=== PATIENT | female | born 1960 | race Caucasian/White ===

== ENCOUNTER 2017-01-26 08:26 | Observation (INO) | payer BC ==
--- NOTE | 2017-01-26 08:43 | DR.GENAD ---
HPI - HPI Comment HPI Comment: INCRESING SOB SINCE THURSDAY ESPECIALLY ON EXERTION. THIS IS ASSOCIATED WITH CHEST TIGHTNESS. STATED HAVING CHEST PAIN YESTERDAY. SUBSTERNAL PRESSURE, NON RADIATING. RECENTLY HAD ECHO AND NUCLEAR STRESS TEST DONE. SHE HAS HYPERTENSION. - Complaint/Symptoms Chief Complaint Doctors Comments: CHEST PAIN, TACHYCARDIA, SOB - Nurses notes reviewed Nurses Notes Review: Yes - Source History Provided: Parent - Mode of Arrival Mode of Arrival: Ambulatory - Timing Came on: Suddenly - Duration Duration: Constant Duration: Days - Severity Severity: Moderate PMH - PMH Past Medical History: Hypertension, Hypothyroidism, Seizures Past Surgical History: Yes Surgical History: Hysterectomy, Tonsillectomy - Family History Family Medical History: Hypertension - Social History Do you use any recreational Drugs:: No ROS - Review of Systems Constitutional: Weakness, Fatigue. negative: Chills, Fever Eyes: No Symptoms Reported. negative: Eye Pain, Discharge ENTM: Nose Congestion. negative: Ear Pain, Nose Discharge, Throat Pain Respiratoy: Non-Productive Cough, Short of Breath. negative: Wheezing, Hemoptysis Cardiovascular: Chest Pain (TIGHTNESS), Palpitations, Syncope (NEAR SYNCOPAL FEELING.) Gastrointestinal/Abdominal: No Symptoms Reported. negative: Abdominal Pain, Constipation, Diarrhea, Nausea, Vomiting Genitourinary: No Symptoms Reported. negative: Dysuria, Frequency, Hematuria Neurological: Weakness, Dizziness. negative: Headache Musculoskeletal: Muscle Pain Integumentary: No Symptoms Reported Hematologic/Lymphatic: No Symptoms Reported Endocrine: No Symptoms Reported All Other Systems: Reviewed and Negative PE - Vital Signs Vitals: Temperature 98.9 F Pulse Rate [Right Brachial] 79 Pulse Rate 94 Respiratory Rate 18 Blood Pressure [Right Arm] 149/89 Blood Pressure 162/94 O2 Sat by Pulse Oximetry 98 - General Limitations: No Limitations General Appearance: Alert - Head Head Exam: Normal Inspection - Eyes Eye exam: Normal Appearance - ENT ENT Exam: Normal External Ear Exam External Ear Exam: Normal External Inspection TM/Canal Exam: Bilateral Normal Nose Exam: Normal Nose Exam Mouth Exam: Normal Inspection Throat Exam: Normal Inspection - Neck Neck Exam: Normal Inspection - Chest Chest Inspection: Symmetric Chest Wall Rise - Respiratory Respiratory Exam: Normal Lung Sounds Bilat Respiratory Exam: Bilateral Rhonchi, Lower Rhonchi - Cardiovascular Cardiovascular Exam: Regular Rate, Normal Rhythm, Normal Heart Sounds - Abdominal Exam Abdominal Exam: Normal Bowel Sounds, Soft. negative: Tenderness - Extremities Extremities Exam: Normal Inspection. negative: Edema - Back Back Exam: Normal Inspection - Neurologic Neurological Exam: Alert, Oriented X3, CN II-XII Intact, Normal Gait, Reflexes Normal. negative: Motor Sensory Deficit - Psychiatric Psychiatric Exam: Anxious - Skin Skin Exam: Normal Color [facility] - Additional Information Additional Information Obtained From: Family - Differential Diagnosis Differential Diagnosis: CHEST PAIN, SOB, Course - Treatment Treatment: SEE ORDERS - Education/Counseling Education/Counseling: Patient, Family, Education Educated On: Diagnosis ROR - Labs Reviewed Laboratory Results Reviewed?: Yes Result Diagrams: 01/27/17 03:51 01/27/17 03:51 Laboratory: WBC 13.7 X10^3/uL (3.6-10.0) H 01/26/17 08:55 RBC 5.29 X10^6/uL (3.5-5.4) 01/26/17 08:55 Hgb 14.7 g/dL (12.0-16.0) 01/26/17 08:55 Hct 44.4 % (36.0-47.0) 01/26/17 08:55 MCV 83.9 fL (80.0-100.0) 01/26/17 08:55 MCH 27.7 pg (27.0-34.0) 01/26/17 08:55 MCHC 33.1 g/dL (33.0-35.0) 01/26/17 08:55 RDW 13.2 % (11.6-16.5) 01/26/17 08:55 Plt Count 260 X10^3/uL (150.0-450.0) 01/26/17 08:55 Plt Count Comment Adequate (ADEQUATE) 01/26/17 08:55 MPV 8.7 fL (7.4-11.0) 01/26/17 08:55 Neut % 70.4 % (42.0-75.0) 01/26/17 08:55 Lymph % 21.6 % (21.0-51.0) 01/26/17 08:55 [place] % 7.6 % (0.0-13.0) 01/26/17 08:55 Eos % 0.0 % (0.9-2.9) L 01/26/17 08:55 Baso % 0.4 % (0.2-1.0) 01/26/17 08:55 Neut # 9.7 x10^3/uL (2.2-4.8) H 01/26/17 08:55 Lymph # 3.0 X10^3/uL (1.3-2.9) H 01/26/17 08:55 [place] # 1.0 x10^3/uL (0.3-0.8) H 01/26/17 08:55 Eos # 0.0 x10^3/uL (0.0-0.2) 01/26/17 08:55 Baso # 0.1 X10^3/uL (0.0-0.1) 01/26/17 08:55 Absolute Nucleated RBC 0.1 /100WBC 01/26/17 08:55 Total Counted 100 01/26/17 08:55 Neutrophils % (Manual) 67 % (39-76) 01/26/17 08:55 Band Neutrophils % 2 % (0-10) 01/26/17 08:55 Lymphocytes % (Manual) 23 % (13-43) 01/26/17 08:55 Monocytes % (Manual) 8 % (4-9) 01/26/17 08:55 Plt Morphology Comment Normal (NORMAL) 01/26/17 08:55 RBC Morphology Normal (NORMAL) 01/26/17 08:55 D-Dimer < 100 ng/mL (0-400) 01/26/17 08:55 Sample Site Rr 01/26/17 09:20 ABG pH 7.550 (7.35-7.45) H 01/26/17 09:20 ABG pCO2 36.0 mmHg (35.0-45.0) 01/26/17 09:20 ABG pO2 78.0 mmHg (80.0-100.0) L 01/26/17 09:20 ABG HCO3 31.5 mmol/L (22-26) H* 01/26/17 09:20 ABG O2 Saturation 97.0 % (90-100) 01/26/17 09:20 ABG Base Excess 8.7 mmol/L (-2.0-2.0) H 01/26/17 09:20 Kobi Test Pos 01/26/17 09:20 A-a Gradient 27.0 mmHg 01/26/17 09:20 FiO2 21.000 01/26/17 09:20 Blood Gas Comments [place] well pmcrt 01/26/17 09:20 Sodium 140 mmol/L (136-145) 01/26/17 08:55 Corrected Sodium TNP 01/26/17 08:55 Potassium 3.5 mmol/L (3.5-5.1) 01/26/17 08:55 Chloride 102 mmol/L (98-107) 01/26/17 08:55 Carbon Dioxide 27.3 mmol/L (21-32) 01/26/17 08:55 BUN 18 mg/dL (7-18) 01/26/17 08:55 Creatinine 0.92 mg/dL (0.55-1.02) 01/26/17 08:55 Est GFR (MDRD) Af Amer > 60 (>60) 01/26/17 08:55 Est GFR (MDRD) Non-Af > 60 (>60) 01/26/17 08:55 Glucose 92 mg/dL (65-99) 01/26/17 08:55 Calcium 9.6 mg/dL (8.5-10.1) 01/26/17 08:55 Corrected Calcium TNP 01/26/17 08:55 Total Bilirubin 0.30 mg/dL (0.2-1.0) 01/26/17 08:55 AST 16 Units/L (15-37) 01/26/17 08:55 ALT 52 Units/L (12-78) 01/26/17 08:55 Alkaline Phosphatase 63 Units/L (46-116) 01/26/17 08:55 Creatine Kinase 32 Units/L (26-192) 01/26/17 08:55 CK-MB (CK-2) < 1.0 ng/mL (0-4.0) 01/26/17 08:55 CK/CKMB % Calc 3.1 % (<4) 01/26/17 08:55 Troponin I < 0.02 ng/mL (0-1.5) 01/26/17 08:55 B-Natriuretic Peptide 15.8 pg/mL (0-79) 01/26/17 08:55 Total Protein 7.3 g/dL (6.4-8.2) 01/26/17 08:55 Albumin 3.7 g/dL (3.4-5.0) 01/26/17 08:55 Globulin 3.6 g/dL (2.5-4.5) 01/26/17 08:55 Albumin/Globulin Ratio 1.0 Ratio (1.1-2.1) L 01/26/17 08:55 TSH 3rd Generation 0.954 uIU/mL (0.358-3.74) 01/26/17 08:55 Specimen Type Clean catch urine 01/26/17 09:14 Urine Color Yellow (YELLOW) 01/26/17 09:14 Urine Appearance Clear (CLEAR) 01/26/17 09:14 Urine pH 8.0 (5.0 - 8.0) 01/26/17 09:14 Ur Specific [place] 1.010 (1.000-1.030) 01/26/17 09:14 Urine Protein Negative (NEGATIVE) 01/26/17 09:14 Urine Glucose (UA) Negative (NEGATIVE) 01/26/17 09:14 Urine Ketones Negative (NEGATIVE) 01/26/17 09:14 Urine Occult Blood Negative (NEGATIVE) 01/26/17 09:14 Urine Nitrite Negative (NEGATIVE) 01/26/17 09:14 Urine Bilirubin Negative (NEGATIVE) 01/26/17 09:14 Urine Urobilinogen Normal (NORMAL) 01/26/17 09:14 Ur Leukocyte Esterase Negative (NEGATIVE) 01/26/17 09:14 Urine RBC 0-1 /HPF (NEGATIVE) 01/26/17 09:14 Urine WBC 0-1 /HPF (NEGATIVE) 01/26/17 09:14 Ur Squamous Epith Cells Few /HPF (NEGATIVE) 01/26/17 09:14 Urine Bacteria Negative /HPF (NEGATIVE) 01/26/17 09:14 Ur Culture Indicated? No/not indicated 01/26/17 09:14 - XRAY XRAY Interpreted by: Radiologist XRAY Findings: REPORT DISCUSS WITH PATIENT. - EKG Rhythm: NSR (EKG NOTED) - Diagnosis Discharge Problem: Respiratory distress Chest pain Qualifiers: Chest pain type: precordial pain Qualified Code(s): R07.2 - Precordial pain - Discharge Plan Disposition: 07 AGAINST MEDICAL ADVICE Condition: Stable - Follow ups/Referrals - Instructions
--- NOTE | 2017-01-26 09:05 | RAD ---
HISTORY: Chest pain Study: Chest one view Comparison: None Findings: The trachea is midline. The cardiac silhouette is unremarkable. The aorta is calcified peer The hunter gs are clear without focal infiltrate or effusion. The bony thorax is unremarkable. IMPRESSION: 1. No acute cardiopulmonary disease. Reported By:
[2017-01-26 09:08] LABS: BASOPHILS # (AUTO) 0.1 X10^3/uL (0.0-0.1); HEMOGLOBIN 14.7 g/dL (12.0-16.0); RED BLOOD COUNT 5.29 X10^6/uL (3.5-5.4); RED CELL DISTRIBUTION WIDTH 13.2 % (11.6-16.5)
[2017-01-26 09:12] LABS: BASOPHILS % (AUTO) 0.4 % (0.2-1.0); HEMATOCRIT 44.4 % (36.0-47.0); LYMPHOCYTES % (AUTO) 21.6 % (21.0-51.0); MEAN CORPUSCULAR HEMOGLOBIN 27.7 pg (27.0-34.0); MEAN CORPUSCULAR HGB CONC 33.1 g/dL (33.0-35.0); MEAN CORPUSCULAR VOLUME 83.9 fL (80.0-100.0); MEAN PLATELET VOLUME 8.7 fL (7.4-11.0); MONOCYTES % (AUTO) 7.6 % (0.0-13.0); NEUTROPHILS # (AUTO) 9.7 x10^3/uL (2.2-4.8); NEUTROPHILS % (AUTO) 70.4 % (42.0-75.0); PLATELET COUNT 260 X10^3/uL (150.0-450.0); WHITE BLOOD COUNT 13.7 X10^3/uL (3.6-10.0)
[2017-01-26 09:21] LABS: BAND NEUTROPHILS % 2 % (0-10); PLATELET MORPHOLOGY COMMENT NORMAL (NORMAL)
[2017-01-26 09:22] LABS: B-TYPE NATRIURETIC PEPTIDE 15.8 pg/mL (0-79)
[2017-01-26 09:26] LABS: ABG BASE EXCESS 8.7 mmol/L (-2.0-2.0); ABG HCO3 31.5 mmol/L (22-26)
[2017-01-26 09:27] LABS: ABG ALLEN TEST POS
[2017-01-26 09:37] LABS: D DIMER < 100 ng/mL (0-400)
[2017-01-26 09:41] LABS: BILIRUBIN,URINE NEGATIVE (NEGATIVE); BLOOD/HEMOGLOBIN,URINE NEGATIVE (NEGATIVE); GLUCOSE, URINE NEGATIVE (NEGATIVE); KETONES,URINE NEGATIVE (NEGATIVE); LEUKOCYTE ESTERASE ,URINE NEGATIVE (NEGATIVE); NITRITES,URINE NEGATIVE (NEGATIVE); PROTEIN,URINE NEGATIVE (NEGATIVE); UROBILINOGEN,URINE NORMAL (NORMAL)
[2017-01-26 09:48] LABS: COLOR,URINE YELLOW (YELLOW)
[2017-01-26 09:49] LABS: APPEARANCE,URINE CLEAR (CLEAR); BACTERIA,URINE NEGATIVE /HPF (NEGATIVE); RBC,URINE 0-1 /HPF (NEGATIVE); SQUAMOUS EPITHELIAL CELL,UR FEW /HPF (NEGATIVE)
[2017-01-26 09:53] LABS: SODIUM 140 mmol/L (136-145)
[2017-01-26 09:54] LABS: ALANINE AMINOTRANSFERASE 52 Units/L (12-78); ALKALINE PHOSPHATASE 63 Units/L (46-116); ASPARTATE AMINO TRANSFERASE 16 Units/L (15-37); BLOOD UREA NITROGEN 18 mg/dL (7-18); CALCIUM 9.6 mg/dL (8.5-10.1); CARBON DIOXIDE 27.3 mmol/L (21-32); CHLORIDE 102 mmol/L (98-107); CREATININE 0.92 mg/dL (0.55-1.02); GLUCOSE 92 mg/dL (65-99); eGFR BLACK RACES > 60 (>60); eGFR NON BLACK RACES > 60 (>60)
[2017-01-26 09:55] LABS: ALBUMIN 3.7 g/dL (3.4-5.0); CREATINE KINASE 32 Units/L (26-192); TOTAL PROTEIN 7.3 g/dL (6.4-8.2)
[2017-01-26 10:28] LABS: CKMB % 3.1 % (<4); CREATINE KINASE MB < 1.0 ng/mL (0-4.0); TROPONIN I < 0.02 ng/mL (0-1.5)
[2017-01-26] MEDS ORDERED: NITROSTAT SL PRN (11:42)
[2017-01-26] MEDS ORDERED: ASPIRIN 81 MG CHEWTAB PO SCH (12:00)
[2017-01-26] MEDS ORDERED: MORPHINE SULFATE INJ 2 MG IVP PRN (13:46)
[2017-01-26] MEDS ORDERED: [UNRECOGNIZED DRUG - OTHER] PO SCH (14:00)
[2017-01-26] MEDS ORDERED: COZAAR PO SCH ×2 (15:00→21:00)
[2017-01-26] MEDS ORDERED: MICRO K EXTEN CAP 10 MEQ PO SCH ×2 (15:00→21:00)
[2017-01-26 15:45] LABS: CKMB % 3.9 % (<4); CREATINE KINASE 26 Units/L (26-192); CREATINE KINASE MB < 1.0 ng/mL (0-4.0); TROPONIN I < 0.02 ng/mL (0-1.5)
[2017-01-26 17:26] VITALS: BMI 36.9
[2017-01-26] MEDS ORDERED: ESTRACE PO SCH (21:00)
[2017-01-26] MEDS ORDERED: DEPAKOTE ER PO SCH (21:00)
[2017-01-26] MEDS ORDERED: [UNRECOGNIZED DRUG - OTHER] PO SCH (21:00)
[2017-01-26] MEDS ORDERED: ZESTRIL TAB 5 MG PO SCH (21:00)
[2017-01-26] MEDS ORDERED: KEPPRA TAB 500 MG PO SCH ×2 (21:00)
[2017-01-26] MEDS: HYDROCHLOROTHIAZIDE 25 MG TAB PO SCH (21:40)
[2017-01-26 21:44] LABS: CKMB % 5.3 % (<4); CREATINE KINASE 19 Units/L (26-192); CREATINE KINASE MB < 1.0 ng/mL (0-4.0); TROPONIN I < 0.02 ng/mL (0-1.5)
[2017-01-27 05:27] LABS: ALANINE AMINOTRANSFERASE 42 Units/L (12-78); ALBUMIN 3.2 g/dL (3.4-5.0); ALKALINE PHOSPHATASE 54 Units/L (46-116); ASPARTATE AMINO TRANSFERASE 13 Units/L (15-37); BLOOD UREA NITROGEN 19 mg/dL (7-18); CALCIUM 8.8 mg/dL (8.5-10.1); CARBON DIOXIDE 30.4 mmol/L (21-32); CHLORIDE 102 mmol/L (98-107); CHOL/HDL RATIO 3.4 (0.0-5.0); CHOLESTEROL 178 mg/dL (0-200); COR CA(FOR HYPOALB) 9.4 mg/dL (8.5-10.1); CREATININE 0.76 mg/dL (0.55-1.02); GLUCOSE 104 mg/dL (65-99); HDL CHOLESTEROL 53 mg/dL (40-60); SODIUM 141 mmol/L (136-145); TOTAL PROTEIN 6.5 g/dL (6.4-8.2); TRIGLYCERIDES 198 mg/dL (0-150); eGFR BLACK RACES > 60 (>60); eGFR NON BLACK RACES > 60 (>60)
[2017-01-27 05:30] LABS: BASOPHILS % (AUTO) 0.3 % (0.2-1.0); EOSINOPHILS % (AUTO) 0.1 % (0.9-2.9); HEMOGLOBIN 14.4 g/dL (12.0-16.0); LYMPHOCYTES # (AUTO) 2.3 X10^3/uL (1.3-2.9); LYMPHOCYTES % (AUTO) 22.6 % (21.0-51.0); MEAN CORPUSCULAR HEMOGLOBIN 27.8 pg (27.0-34.0); MEAN CORPUSCULAR HGB CONC 32.6 g/dL (33.0-35.0); MEAN CORPUSCULAR VOLUME 85.3 fL (80.0-100.0); MEAN PLATELET VOLUME 8.7 fL (7.4-11.0); MONOCYTES # (AUTO) 0.7 x10^3/uL (0.3-0.8); MONOCYTES % (AUTO) 6.5 % (0.0-13.0); NEUTROPHILS # (AUTO) 7.2 x10^3/uL (2.2-4.8); NEUTROPHILS % (AUTO) 70.5 % (42.0-75.0); PLATELET COUNT 232 X10^3/uL (150.0-450.0); RED BLOOD COUNT 5.15 X10^6/uL (3.5-5.4); RED CELL DISTRIBUTION WIDTH 13.7 % (11.6-16.5); WHITE BLOOD COUNT 10.2 X10^3/uL (3.6-10.0)
[2017-01-27 06:02] LABS: BAND NEUTROPHILS % 3 % (0-10); PLATELET MORPHOLOGY COMMENT NORMAL (NORMAL)
[2017-01-27 08:28] VITALS: BP 135/78
[2017-01-27] MEDS: HYDROCHLOROTHIAZIDE 25 MG TAB PO SCH (08:59)
[2017-01-27] MEDS ORDERED: KEPPRA TAB 500 MG PO SCH (09:00)
[2017-01-27] MEDS ORDERED: [UNRECOGNIZED DRUG - OTHER] PO SCH (09:00)
[2017-01-27] MEDS ORDERED: PATIENT'S HOME MEDICATION RESPIRATORY (Losartan Potassium [Losartan Potassium] 25 MG) PO SCH (09:00)
[2017-01-27] MEDS ORDERED: [UNRECOGNIZED DRUG - OTHER] PO SCH (09:00)
[2017-01-27] MEDS ORDERED: [UNRECOGNIZED DRUG - OTHER] PO SCH (09:00)
--- NOTE | 2017-01-27 09:55 | DR.CARTERS ---
Short Stay Summary - Short Stay Summary for: Short Stay Summary for Date of:: 01/27/17 - Admission Date Date of Admission: 01/26/17 - Discharge Date Discharge Date: 01/27/17 - Admission Diagnoses (1) Chest pain Status: Acute (2) Respiratory distress Status: Acute (3) URI (upper respiratory infection) Status: Acute (4) Asthma Status: Chronic (5) HTN (hypertension) Status: Chronic (6) Hypothyroidism Status: Chronic (7) Seizures Status: Chronic (8) Arthritis Status: Chronic (9) History of skin cancer Status: Chronic (10) Fibroids Status: Chronic - Hospital Course Hospital Course: DAY ONE OF HOSPITAL STAY, THIS 57 YEAR OLD FEMALE IS A PATIENT PAT HUA CHONG. SHE PRESENTED TO THE EMERGENCY ROOM WITH COMPLAINTS OF CHEST PAIN WITH SHORTNESS OF BREATH. PATIENT REPORTED SHE HAD AN UPPER RESPIRATORY INFECTION THE LAST TWO WEEKS AND HAD BEEN TREATED WITH ROCEPHIN INJECTIONS, ORAL ANTIBIOTICS, AND A MEDROL DOSEPAK PER HER PCP. PATIENT FURTHER REPORTED ON THURSDAY NIGHT, SHE BEGAN HAVING PERIODS OF TACHYPNEA AND CHEST PAIN. SHE DENIED COUGHING. SHE STATED CHEST PAIN WAS INTERMITTENT, SUBSTERNAL, NON- RADIATING. SHE STATED CHEST PAIN WORSENED IN SEVERITY AND CAME TO OUR ER FOR FURTHER EVALUATION. AT BEDSIDE AND REPORTED PATIENT HAD BEEN SEEN BY HER BRAIDING MACHINE TENDER, DR XIONG, ONE MONTH PRIOR FOR AN ECHO AND A NUCLEAR STRESS TEST WITH NO ACUTE FINDINGS. PATIENT HAS A HISTORY OF HYPERTENSION. WE ADMITTED PATIENT TO HOSPITAL FOR FURTHER TREATMENT AND EVALUATION. DAY TWO OF HOSPITAL STAY, PATIENT WAS MONITORED ON TELEMETRY. SERIAL CARDIAC ENZYMES AND EKG'S WERE OBTAINED. CARDIAC ENZYMES WNL. EKG: SINUS RHYTHM, RATE 90. PATIENT REPORTED SHE FELT MUCH BETTER. WE DISCUSSED SHORTNESS OF BREATH AND CHEST PAIN ASSOCIATED WITH UPPER RESPIRATORY INFECTION. PATIENT AND VOICED UNDERSTANDING. ON AUSCULTATION, LUNGS WERE NOTED WITH SCATTERED RHONCHI. COUGH WAS MOIST, NON-PRODUCTIVE. WE BELIEVE SHORTNESS OF BREATH AND CHEST PAIN WAS RESPIRATORY RELATED RATHER THAN CARDIAC. ABG YESTERDAY INDICATES HYPERVENTILATION. RESPIRATIONS WERE NORMAL AND REGULAR UPON ASSESSMENT THIS DAY. CBC WNL EXCEPT: WBC 10.2. CMP WNL EXCEPT: BUN 19, GLUCOSE 104, ALBUMIN 3.2. WE PLANNED FOR DISCHARGE. INSTRUCTIONS FOR MEDICATIONS AND FOLLOW UP WERE GIVEN TO PATIENT AND , BOTH VOICED UNDERSTANDING. PATIENT WAS DISCHARGED HOME IN STABLE CONDITION WITH . - Discharge Medications Discharge Medications: Divalproex Sodium [Depakote ER 24 hr] 1 tab PO HS 01/14/16 Estradiol 1 tab PO DAILY 01/14/16 Hydrochlorothiazide 1 tab PO BID 01/14/16 Levetiracetam [KEPPRA 500 MG *] 500 mg PO DAILY 01/14/16 Lisdexamfetamine Dimesylate [Vyvanse] 1 cap PO DAILY 01/14/16 Potassium Chloride [K-Tab] 10 meq PO DAILY 01/14/16 Thyroid [Cartwright Thyroid] 1 tab PO DAILY 01/14/16 Cyanocobalamin 1 ml IM MONTHLY 01/26/17 Levetiracetam [Keppra 1000 mg] 1,000 mg PO HS 01/26/17 Losartan Potassium 25 mg PO DAILY 01/26/17 Methylprednisolone Dosepak 4Mg [MEDROL DOSEPAK (4 mg tab x 21)] 1 dee PO ONCE 01/26/17 Ipratropium/Albuterol Nebule [DUONEB 0.5 MG/3 MG NEBULE *] 1 nebule NEB QID PRN #120 each 01/27/17 - Discharge Plan Disposition: HOME, SELF-CARE Condition: Stable Prescriptions: Ipratropium/Albuterol Nebule [DUONEB 0.5 MG/3 MG NEBULE *] 1 nebule NEB QID PRN #120 each PRN Reason: - Follow up/Referrals Follow up/Referrals: MARLENY CHONG [Primary Care Provider] - 02/03/17 8:30 am - Instructions Instructions: Shortness of Breath, [id number], Hypertension, [id number], Managing Your High Blood Pressure, Chest Pain Observation Additional Instructions: ACTIVITY TOLERATED. DIET TOLERATED. Forms: Patient Portal
== END 2017-01-27 09:50 | disposition home or self-care (01) | DRG 313 ==
LOC: ER 08:35 → MED/SURG 11:37
PROVIDERS: ADMIT Internal Medicine; ATTEND Internal Medicine
DX: R07.89 Other chest pain (principal); G40.89 Other seizures; R06.09 Other forms of dyspnea; R94.31 Abnormal electrocardiogram [ECG] [EKG]; R07.2 Precordial pain; R06.02 Shortness of breath; J06.9 Acute upper respiratory infection, unspecified; I10 Essential (primary) hypertension; R00.0 Tachycardia, unspecified; E03.8 Other specified hypothyroidism; J45.998 Other asthma; M13.89 Other specified arthritis, multiple sites; D72.828 Other elevated white blood cell count; Z85.828 Personal history of other malignant neoplasm of skin
CPT/HCPCS: 36415; 36600; 71010; 80053; 80061; 81001; 82550; 82553; 82803; 83880; 84443; 84484; 85025; 85378; 86677; 93005; 93010; 94760; 96365; 99284; A4216; A4222; G0378; J2270

== ENCOUNTER → 2017-01-30 | Outpatient (CLI) | payer BC ==
[2017-01-27 08:28] VITALS: BP 135/78
[~2017-01-30] MED LIST: NS 100 ML IV 100 ML IV ONE
--- NOTE | 2017-01-30 12:28 | CT ---
CT chest with contrast Indication: Shortness of breath with chest pain Comparison: None available Technique: Multiple axial images of the chest were obtained from the thoracic inlet to the upper abd omen after the administration of IV contrast. Coronal and sagittal reformatted images were also prov ided. Radiation dose reduction techniques were performed utilizing adjustment for MA/kVP based on patient body size. Findings: Thyroid gland is normal. Heart size is normal without pericardial effusion. The thoracic aorta is no rmal in caliber and configuration. Pulmonary artery is normal in caliber as well. No central filling defect. No enlarged mediastinal or hilar lymphadenopathy. The lungs are clear. No focal airspace co nsolidation, nodule or mass. No pleural effusion or pneumothorax. Imaging of the upper abdomen demon strates a multilobulated cyst within the right hepatic lobe on image 57. The review of bone windows and the visualized upper abdomen demonstrates no acute abnormality. IMPRESSION: No acute cardiopulmonary abnormality. Reported By:
== END ==
LOC: RAD 10:53
PROVIDERS: ATTEND Nurse Practitioner Family
DX: R06.02 Shortness of breath (principal); R07.2 Precordial pain; I10 Essential (primary) hypertension
CPT/HCPCS: 71260; A4222

== ENCOUNTER → 2017-12-16 | Outpatient (CLI) | payer BC ==
--- NOTE | 2017-12-16 10:54 | US ---
HISTORY: Right upper quadrant abdominal pain. Study: Right upper quadrant abdominal ultrasound. Comparison: None. Technique: Multiple shaw scale and color flow Doppler images of the right upper quadrant were obtaine d. Findings: There is diffuse increased echogenicity and beam attenuation throughout the liver compatible with fat ty infiltration. Simple appearing cysts are noted in the liver. No intrahepatic biliary ductal dilata tion or solid mass lesion is demonstrated. The gallbladder fails to demonstrate evidence for cholelit hiasis or layering sludge. The common bile duct is unremarkable measuring 3 mm in diameter. No charline cholecystic fluid or gallbladder wall thickening can be observed. The right kidney appears normal in size without focal parenchymal mass or nephrolithiasis. The right kidney measures 8 x 5 x 5 cm. No hydronephrosis or perirenal fluid can be observed. The included p ortions of the pancreas are grossly unremarkable. IMPRESSION: Findings suggesting hepatic steatosis. Simple appearing hepatic cysts. Unremarkable sonographic evaluation of the gallbladder. Reported By:
== END ==
LOC: RAD 09:05
PROVIDERS: ATTEND Nurse Practitioner Family
DX: R10.11 Right upper quadrant pain (principal); R11.0 Nausea
CPT/HCPCS: 76705

== ENCOUNTER → 2017-12-30 | Outpatient (CLI) | payer BC ==
--- NOTE | 2017-12-30 11:37 | NM ---
HISTORY: Right upper quadrant pain. Weight loss, nausea and bloating. Study: Nuclear medicine HIDA scan with ejection fraction Comparison: None. Technique: Multiple scintigraphic images of the abdomen were obtained the intravenous administration of 5.6 mCi of technetium labeled Choletec. Following distention of the gallbladder with radiotracer, 8 oz of Ensure was administered orally. An estimated gallbladder ejection fraction was calculated based on the resulting physiologic response. Findings: Homogeneous uptake of radiotracer is seen throughout the liver. The intrabiliary ductal system is ob served normally. The common hepatic and common bile duct are unremarkable with normal biliary-bowel transit. The gallbladder is observed to fill normally. After administration of Ensure, a gallbladder ejection fraction of 2.1% (normal > 35%) is observed. IMPRESSION: 1. Normal hepatobiliary imaging scan. 2. Abnormal gallbladder ejection fraction of 2.1%. Clinical correlation for severe gallbladder dyski nesia or cholecystitis recommended. Reported By:
== END ==
LOC: RAD 08:46
PROVIDERS: ATTEND Nurse Practitioner Family
DX: R10.11 Right upper quadrant pain (principal); R10.13 Epigastric pain
CPT/HCPCS: 78227; A9537

== ENCOUNTER 2018-01-13 08:23 | Day surgery (SDC) | payer BC ==
[~2018-01-13 08:23] MED LIST changes: +MARCAINE 0.25% INJ ONE; -NS 100 ML IV 100 ML IV ONE; +XYLOCAINE 1% and EPINEPHRINE 1:100,000 ONE
[2018-01-13] MEDS ORDERED: ANCEF 1 GM IV PREMIX* 1 GM/50 ML BAG IV ONE ×3 (08:40→11:20)
[2018-01-13] MEDS ORDERED: NS 1000 ML 1,000 ML ONE (08:40)
[2018-01-13 09:03] LABS: BASOPHILS % (AUTO) 0.7 % (0.2-1.0); HEMATOCRIT 38.7 % (36.0-47.0); HEMOGLOBIN 13.3 g/dL (12.0-16.0); LYMPHOCYTES # (AUTO) 1.7 X10^3/uL (1.3-2.9); LYMPHOCYTES % (AUTO) 33.3 % (21.0-51.0); MEAN CORPUSCULAR HGB CONC 34.3 g/dL (33.0-35.0); MEAN CORPUSCULAR VOLUME 84.4 fL (80.0-100.0); MEAN PLATELET VOLUME 8.7 fL (7.4-11.0); MONOCYTES # (AUTO) 0.5 x10^3/uL (0.3-0.8); MONOCYTES % (AUTO) 10.6 % (0.0-13.0); NEUTROPHILS # (AUTO) 2.8 x10^3/uL (2.2-4.8); NEUTROPHILS % (AUTO) 54.4 % (42.0-75.0); PLATELET COUNT 166 X10^3/uL (150.0-450.0); RED BLOOD COUNT 4.59 X10^6/uL (3.5-5.4); WHITE BLOOD COUNT 5.1 X10^3/uL (3.6-10.0)
[2018-01-13 09:44] LABS: ALANINE AMINOTRANSFERASE 29 Units/L (12-78); ALBUMIN 3.3 g/dL (3.4-5.0); ALKALINE PHOSPHATASE 53 Units/L (46-116); ASPARTATE AMINO TRANSFERASE 13 Units/L (15-37); BLOOD UREA NITROGEN 15 mg/dL (7-18); CALCIUM 8.3 mg/dL (8.5-10.1); CARBON DIOXIDE 31.9 mmol/L (21-32); CHLORIDE 101 mmol/L (98-107); COR CA(FOR HYPOALB) 8.9 mg/dL (8.5-10.1); CREATININE 0.76 mg/dL (0.55-1.02); SODIUM 139 mmol/L (136-145); TOTAL PROTEIN 6.7 g/dL (6.4-8.2); eGFR BLACK RACES > 60 (>60); eGFR NON BLACK RACES > 60 (>60)
[2018-01-13] MEDS ORDERED: ZOFRAN INJ 4 MG VIAL ONE (09:49)
[2018-01-13] MEDS ORDERED: REGLAN INJ 10 MG VIAL ONE (09:49)
[2018-01-13] MEDS ORDERED: SUPRANE IN ONE (09:49)
[2018-01-13] MEDS ORDERED: QUELICIN (OR ANECTINE) ONE (09:49)
[2018-01-13] MEDS ORDERED: VERSED ONE (09:49)
[2018-01-13] MEDS ORDERED: NORMODYNE INJ 100 MG VIAL ONE (09:49)
[2018-01-13] MEDS ORDERED: NORCURON INJ 10 MG VIAL ONE (09:49)
[2018-01-13] MEDS ORDERED: XYLOCAINE 2 % (PLAIN) ONE (09:49)
[2018-01-13] MEDS ORDERED: NEOSTIGMINE INJ ONE (09:49)
[2018-01-13] MEDS ORDERED: TORADOL 30 MG VIAL ONE (09:49)
[2018-01-13] MEDS ORDERED: DIPRIVAN VIAL ONE (09:49)
[2018-01-13] MEDS ORDERED: ROBINUL ONE (09:49)
[2018-01-13] MEDS ORDERED: FENTANYL INJ 250 mcg ONE (10:12)
[2018-01-13] MEDS ORDERED: DECADRON INJ ONE (10:58)
[2018-01-13] MEDS ORDERED: NS IRRIGATION 1000 ML 1,000 ML IR ONE (11:50)
[2018-01-13] MEDS ORDERED: PERCOCET TAB 5/325 MG PO PRN (12:25)
[2018-01-13] MEDS ORDERED: PHENERGAN INJ 25 MG IV PRN (12:25)
--- NOTE | 2018-01-13 12:30 | OR.GENERIC ---
Post-Op Note Generic - Post-Op Note Operative Report: Operative Report Date of Operation: January 13, 2018 Pre-Operative Diagnosis: Biliary dyskinesia. Post-Operative Diagnosis: 1. Chronic cholecystitis. 2. Biliary dyskinesia. Procedure: Laparoscopic cholecystectomy. Surgeon: Apollo Valverde MD. Physical Aerodynamicist: Meri Márquez CRNA. Specimen: Gallbladder. Estimated blood loss: Minimal. Complications: None. Summary: The patient is a 58 year old female who presented with biliary dyskinesia. The patient was offered cholecystectomy. The risk and benefits of the procedure including difficulty with anesthesia, bleeding, infection, conversion to open procedure, bile leak, hernia formation, DVT, as well as PE were discussed with the patient. The patient understood these risks and requested the procedure. On January 13, 2018, the patient was brought to the operative theatre. A time out was performed verifying the patient and procedure. The patient received Ancef for pre-operative antibiosis. After satisfactory induction of general endotracheal anesthesia, the abdomen was prepped with Chloraprep and draped in the usual sterile fashion. The skin and subcutaneous tissue inferior to the umbilicus was anesthetized using local anesthetic. The skin was incised sharply. A 12 mm trocar was placed though the incision and into the peritoneal cavity using the Optiview technique. Carbon dioxide was infiltrated through this trocar to obtain a pneumoperitoneum of 15 mm Hg. A camera was placed through this trocar and swept in all directions. No injury was seen from entering the peritoneal cavity. A site was selected in the subxiphoid location for our 2nd trocar. The skin and fascia was anesthetized using local anesthetic. The skin was incised sharply. A 5 mm trocar was placed into the peritoneal cavity under direct visualization. In a similar manner, two additional 5 mm trocars were placed. The first was placed in the mid- clavicular line approximately 2 fingerbreadths inferior to the left costal margin and a second in the anterior axillary line approximately 2 fingerbreadths inferior to the left costal margin. The patient was placed in reverse Trendelenburg and rotated to the patients left. The gallbladder was grasped at the fundus and elevated cephalad and slightly lateral. The peritoneum on the medial and lateral aspects of the infundibulum of the gallbladder was scored using hook electrocautery. Using blunt dissection, the cystic artery and duct were isolated. The cystic duct was noted to split and a posterior branch identified that clearly entered the gallbladder. The critical view of safety was obtained. These structures were divided between endoclips. The gallbladder was dissected free using hook electrocautery. The gallbladder was placed in an endobag and removed through the umbilical trocar site without difficulty. The trocar and camera were placed back inside the abdomen. Our clips were noted in good position. Bleeding of the gallbladder fossa was controlled using electrocautery. At this point, the 5 mm trocars were removed under direct visualization. No bleeding was seen. The umbilical trocar was then removed and pneumoperitoneum released. The fascia at the umbilicus was closed using a 0-Vicryl placed in a [id number] configuration. The skin edges at all incisions were re-approximated using inverted, interrupted 4-0 Monocryl sutures. Mastisol and Steri-strips were placed. Sterile dressings were placed. The patient was awakened and taken to the recovery room in stable condition. There were no complications. All counts were correct.
[2018-01-13] MEDS ORDERED: REGLAN INJ 10 MG VIAL IVP PRN (12:39)
[2018-01-13] MEDS ORDERED: BENADRYL INJ 50 MG VIAL IVP PRN (12:39)
[2018-01-13] MEDS ORDERED: ZOFRAN INJ 4 MG VIAL IVP PRN (12:39)
[2018-01-13] MEDS ORDERED: PHENERGAN INJ 25 MG IVP PRN (12:39)
[2018-01-13] MEDS: DILAUDID INJ IVP PRN ×2 (12:40→12:45)
[2018-01-13] MEDS ORDERED: NORCO 5/325 MG TAB ONE (13:07)
[2018-01-13] MEDS ORDERED: PERCOCET TAB 5/325 MG ONE (13:08)
[2018-01-13 14:20] VITALS: BP 128/88
== END 2018-01-13 14:07 | disposition home or self-care (01) ==
LOC: SURG1 08:23
PROVIDERS: ATTEND Student in an Organized Health Care Education/Training Program
PROC: 0FT44ZZ Resection of Gallbladder, Percutaneous Endoscopic Approach (ICD-10-PCS; principal; 2018-01-13 10:45)
DX: K82.8 Other specified diseases of gallbladder (principal); K81.1 Chronic cholecystitis
CPT/HCPCS: 36415; 80053; 85025; A4216; A4222; S0020; J0330; J0690; J1100; J1170; J1885; J2001; J2250; J2405; J2710; J2765; J3010; J3490

== ENCOUNTER 2018-11-27 02:26 | Observation (INO) ==
[2018-11-27] MEDS ORDERED: LEVSIN/MAALOX/LIDOC VISC PO ONE (02:44)
--- NOTE | 2018-11-27 02:50 | DR.CP ---
HPI - Time Seen Time seen: 02:42 - PCP Primary Care Physician: BHAVYA-PCP - Complaint Chief Complaint Doctor Comments: Patient is complaining xiphoid chest pain for the past 1-2 hours getting worst the last 30 minutes with pain being sharp. P atient denies SOB, cold, cough, fever or chills. States pain onset while having sex and she thought she was having indigestion and that it would go away but it did not. States she had similar pain years ago but she did not go to the doctor but when she went to the doctor they told her that her EKG had changed. state she is a patient of Geraldine Ruelas and her opal polisher is a doctor at [facility]. she denies tobacco use and states she stopped drinking. she has had an aspirin to day but has not had any nitroglycerin. States she has a problem with esophageal stricture and has been dilated before. Patient states she has had seizures since 1981 and she is followed by a neurologist and saw him a week ago and she is on Keppra and takes depakote for migraines. Spouse states patient has seizures frequently and she had one tonight. Patient states she has had a MRI scan recently by her neurologist and spouse said it did not show any acute changes. Chief Complaint:: SUBSTERNAL INT. CHEST PAIN O/S 1-2HRS, STATES PAIN IS SHARP. RATES PAIN 8/10 AT PRESENT TIME. Self Treatment fo Chief Complaint: PEPTO BISMOL - Reviewed Nurses Notes Review: Yes - Source History Provided: Patient, Significant Other - Mode of Arrival Mode of Arrival: Ambulatory - Timing Onset of Chief Complaint: 11/27/18 Came on: Gradually Pain: Present Now - Duration Duration: Constant How lon Duration: Minutes - Location Location of Chest Pain: Chest Chest Pain Radiation Location: None - Context Onset: With light exertion Cardiac Risk Factors: HTN PE Risk Factors: None History of: Similar pain in the past, Aspirin in last 24 hours Prehospital Care: ASA - Quality Quality: Sharp - Severity Severity: Moderate - Modifying Factors Worsens: Nothing Impoves: Nothing - Associated Signs and Symptoms Associated Signs and Symptoms: None PMH - PMH Past Medical History: Yes Past Medical History: Anemia, Angina, Dyslipidemia, GERD, Hypertension, Hypothyroidism, Seizures Past Medical History Comment: ADHD, "SUSPECT AN OLD [place] AND NON-TRADITIONAL COPD/ASTHMA" PER PATIENT AND . Past Surgical History: Yes Surgical History: Cholecystectomy, Hysterectomy - Family History History of Family Medical Conditions: Yes Family Medical History: Hypertension - Social History Does patient currently use any type of tobacco product: No Have you used tobacco products in the last 12 months: No Type of Tobacco Use: None Does any household member use tobacco: No Alcohol Use: None Do you use any recreational Drugs:: No Lives With: Spouse Lives Where: Home - infectious screening In the last 2 months have you had wt loss of >10#?: NO Have you had fever, night sweats or hemotysis?: No Have you traveled outside the country in the last 6 months?: No Isolation: Standard ROS - Review of Systems Constitutional: No Symptoms Reported Eyes: No Symptoms Reported ENTM: No Symptoms Reported Respiratoy: No Symptoms Reported Cardiovascular: No Symptoms Reported, Chest Pain Gastrointestinal/Abdominal: No Symptoms Reported. negative: See HPI, Abdominal Pain, Constipation, Diarrhea, Nausea, Vomiting, Food Intolerance, Other Genitourinary: No Symptoms Reported Neurological: No Symptoms Reported. negative: See HPI, Anxiety, Depressed, Emotional Problems, Headache, Numbness, Paresthesia, Pre-existing Deficit, Seizure, Tingling, Tremors, Weakness, Dizziness, Problems Walking, Speech Problem, Other Musculoskeletal: No Symptoms Reported Integumentary: No Symptoms Reported. negative: See HPI, Change in Color, Change in Hair/Nails, Dryness, Lesions, Lumps, Rash, Itching, Wound, Bruises, Juandice, Other Hematologic/Lymphatic: No Symptoms Reported Endocrine: No Symptoms Reported Psychiatric: No Symptoms Reported. negative: See HPI, Anxiety, Depression, Hallucinations, Excessive crying, Suicidal, Other PE - General Limitations: No Limitations General Appearance: Alert, In Distress (moderate) - Head Head Exam: Normal Inspection, Atraumatic, Normocephalic - Eyes Eye exam: Normal Appearance, PERRL, EOMI. negative: Scleral Icterus, Conjunctival Injection, Nystagmus, Miosis, Mydrasis, Periorbital Swelling, Periorbital Tenderness, Other - ENT ENT Exam: Normal Exam, Normal Oropharynx, Normal External Ear Exam, Mucous Membranes Moist, TM's Normal Bilaterally - Chest Chest Inspection: Normal Inspection, Symmetric Chest Wall Rise - Respiratory Respiratory Exam: Normal Lung Sounds Bilat Respiratory Exam: Bilateral Clear to Auscultation - Cardiovascular Cardiovascular Exam: Regular Rate, Normal Rhythm Pulse: Normal Edema: Normal - Abdominal Exam Abdominal Exam: Normal Inspection, Normal Bowel Sounds, Soft, Tenderness (slight epigastric tenderness) Abdominal Tenderness: Epigastrium, Mild - Extremities Extremities Exam: Normal Inspection, Full ROM, Normal Capillary Refill. negative: Tenderness, Edema, Joint Swelling, Calf Tenderness, Other - Back Back Exam: Normal Inspection, Full ROM. negative: Tenderness, (R) CVA Tenderness, (L) CVA Tenderness, Muscle Spasm, Paraspinal Tenderness, Vertebral Tenderness, Rashes, (R) Sciatic Notch Tenderness, (L) Sciatic Notch Tendern, (R) Straight Leg Raise, (L) Straight Leg Raise, Other - Neurologic Neurological Exam: Alert, Oriented X3, CN II-XII Intact, Normal Gait, Reflexes Normal - Psychiatric Psychiatric Exam: Normal Affect, Normal Mood - Skin Skin Exam: Warm, Dry, Intact, Normal Color. negative: Rash, Cyanosis, Diaphoresis, Erythema, Pallor, Mottled, Other - Vitals Vitals: Temperature 98.3 F Pulse Rate [Apical] 89 Pulse Rate 92 Respiratory Rate 16 Blood Pressure [Left Arm] 135/78 Blood Pressure [Right Arm] 111/72 Blood Pressure 143/86 O2 Sat by Pulse Oximetry 94 Course - Reevaluation 1st: Improved - Consultation Called: 04:03 Call Returned: 04:10 (Dr. Maravilla to admit) - Education/Counseling Education/Counseling: Patient, Family Educated On: Treatment, Diagnosis, Needs for Follow Up ROR - Labs Reviewed Laboratory Results Reviewed?: Yes (All labs and x-ray results reviewed and discussed with patient) Result Diagrams: 11/27/18 02:56 11/27/18 02:56 - XRAY XRAY Interpreted by: Radiologist (CXR: No acute cardiopulmonary abnormality) - EKG Rate: 89 [place]: Normal Rhythm: NSR Block: None Hypertrophy: None ST: Normal, Old, Inf, Nonsp - Labs Reviewed Laboratory: WBC 6.9 X10^3/uL (3.6-10.0) 11/27/18 02:56 RBC 4.84 X10^6/uL (3.5-5.4) 11/27/18 02:56 Hgb 14.4 g/dL (12.0-16.0) 11/27/18 02:56 Hct 42.4 % (36.0-47.0) 11/27/18 02:56 MCV 87.6 fL (80.0-100.0) 11/27/18 02:56 MCH 29.7 pg (27.0-34.0) 11/27/18 02:56 MCHC 33.9 g/dL (33.0-35.0) 11/27/18 02:56 RDW 12.8 % (11.6-16.5) 11/27/18 02:56 Plt Count 183 X10^3/uL (150.0-450.0) 11/27/18 02:56 MPV 8.7 fL (7.4-11.0) 11/27/18 02:56 Neut % (Auto) 49.2 % (42.0-75.0) 11/27/18 02:56 Lymph % (Auto) 43.2 % (21.0-51.0) 11/27/18 02:56 [place] % (Auto) 6.6 % (0.0-13.0) 11/27/18 02:56 Eos % (Auto) 0.5 % (0.9-2.9) L 11/27/18 02:56 Baso % (Auto) 0.5 % (0.2-1.0) 11/27/18 02:56 Neut # (Auto) 3.4 x10^3/uL (2.2-4.8) 11/27/18 02:56 Lymph # (Auto) 3.0 X10^3/uL (1.3-2.9) H 11/27/18 02:56 [place] # (Auto) 0.5 x10^3/uL (0.3-0.8) 11/27/18 02:56 Eos # (Auto) 0.0 x10^3/uL (0.0-0.2) 11/27/18 02:56 Baso # (Auto) 0.0 X10^3/uL (0.0-0.1) 11/27/18 02:56 Absolute Nucleated RBC 0.1 /100WBC 11/27/18 02:56 INR Target Range - 11/27/18 02:56 INR 1.00 (0.8-1.3) 11/27/18 02:56 APTT 27.9 SECONDS (22.9-36.5) 11/27/18 02:56 PTT Comment - 11/27/18 02:56 D-Dimer < 100 ng/mL (0-400) 11/27/18 02:56 Sodium 140 mmol/L (136-145) 11/27/18 02:56 Corrected Sodium TNP 11/27/18 02:56 Potassium 3.4 mmol/L (3.5-5.1) L 11/27/18 02:56 Chloride 102 mmol/L (98-107) 11/27/18 02:56 Carbon Dioxide 31.5 mmol/L (21-32) 11/27/18 02:56 BUN 22 mg/dL (7-18) H 11/27/18 02:56 Creatinine 0.99 mg/dL (0.55-1.02) 11/27/18 02:56 Est GFR (MDRD) Af Amer > 60 (>60) 11/27/18 02:56 Est GFR (MDRD) Non-Af > 60 (>60) 11/27/18 02:56 Glucose 98 mg/dL (65-99) 11/27/18 02:56 Calcium 8.6 mg/dL (8.5-10.1) 11/27/18 02:56 Corrected Calcium TNP 11/27/18 02:56 Magnesium 1.8 mg/dL (1.7-2.9) 11/27/18 02:56 Total Bilirubin 0.50 mg/dL (0.2-1.0) 11/27/18 02:56 AST 19 Units/L (15-37) 11/27/18 02:56 ALT 32 Units/L (12-78) 11/27/18 02:56 Alkaline Phosphatase 65 Units/L (46-116) 11/27/18 02:56 Creatine Kinase 112 Units/L (26-192) 11/27/18 02:56 CK-MB (CK-2) < 1.0 ng/mL (0-4.0) 11/27/18 02:56 CK/CKMB % Calc 0.9 % (<4) 11/27/18 02:56 Troponin I < 0.02 ng/mL (0-1.5) 11/27/18 02:56 Total Protein 6.6 g/dL (6.4-8.2) 11/27/18 02:56 Albumin 3.6 g/dL (3.4-5.0) 11/27/18 02:56 Globulin 3.0 g/dL (2.5-4.5) 11/27/18 02:56 Albumin/Globulin Ratio 1.2 Ratio (1.1-2.1) 11/27/18 02:56 - Diagnosis Discharge Problem: Chest pain, rule out acute myocardial infarction, Seizure disorder Hypothyroidism Qualifiers: Hypothyroidism type: unspecified Qualified Code(s): E03.9 - Hypothyroidism, unspecified - Discharge Plan Disposition: ADMITTED INPATIENT Condition: Stable - Follow ups/Referrals Follow ups/Referrals: MARLENY RUELAS [Primary Care Provider] - 3 days - Instructions
[2018-11-27] MEDS ORDERED: LEVSIN/MAALOX/LIDOC VISC ONE (02:51)
[2018-11-27] MEDS: NITROSTAT SL PRN ×2 (02:59→09:14)
[2018-11-27 03:08] LABS: BASOPHILS % (AUTO) 0.5 % (0.2-1.0); EOSINOPHILS % (AUTO) 0.5 % (0.9-2.9); HEMATOCRIT 42.4 % (36.0-47.0); HEMOGLOBIN 14.4 g/dL (12.0-16.0); LYMPHOCYTES % (AUTO) 43.2 % (21.0-51.0); MEAN CORPUSCULAR HEMOGLOBIN 29.7 pg (27.0-34.0); MEAN CORPUSCULAR HGB CONC 33.9 g/dL (33.0-35.0); MEAN CORPUSCULAR VOLUME 87.6 fL (80.0-100.0); MEAN PLATELET VOLUME 8.7 fL (7.4-11.0); MONOCYTES # (AUTO) 0.5 x10^3/uL (0.3-0.8); MONOCYTES % (AUTO) 6.6 % (0.0-13.0); NEUTROPHILS # (AUTO) 3.4 x10^3/uL (2.2-4.8); NEUTROPHILS % (AUTO) 49.2 % (42.0-75.0); PLATELET COUNT 183 X10^3/uL (150.0-450.0); RED BLOOD COUNT 4.84 X10^6/uL (3.5-5.4); RED CELL DISTRIBUTION WIDTH 12.8 % (11.6-16.5); WHITE BLOOD COUNT 6.9 X10^3/uL (3.6-10.0)
--- NOTE | 2018-11-27 03:10 | RAD ---
AP chest Indication: Chest pain Comparison: 01/26/2017 Findings: Heart size is normal. Trachea is midline. Suboptimal inspiration with bibasilar reticular opacities and central pulmonary vascular crowding. No focal airspace opacity, pleural effusion or pneumothorax. No acute osseous abnormality. Impression: No acute cardiopulmonary abnormality. Reported By:
[2018-11-27 03:21] LABS: BLOOD UREA NITROGEN 22 mg/dL (7-18); CALCIUM 8.6 mg/dL (8.5-10.1); CARBON DIOXIDE 31.5 mmol/L (21-32); CHLORIDE 102 mmol/L (98-107); CREATININE 0.99 mg/dL (0.55-1.02); SODIUM 140 mmol/L (136-145); TROPONIN I < 0.02 ng/mL (0-1.5); eGFR NON BLACK RACES > 60 (>60)
[2018-11-27 03:25] LABS: ALANINE AMINOTRANSFERASE 32 Units/L (12-78); ALBUMIN 3.6 g/dL (3.4-5.0); ALKALINE PHOSPHATASE 65 Units/L (46-116); ASPARTATE AMINO TRANSFERASE 19 Units/L (15-37); CKMB % 0.9 % (<4); CREATINE KINASE 112 Units/L (26-192); CREATINE KINASE MB < 1.0 ng/mL (0-4.0); MAGNESIUM 1.8 mg/dL (1.7-2.9); TOTAL PROTEIN 6.6 g/dL (6.4-8.2)
[2018-11-27] MEDS ORDERED: PATIENT'S HOME MEDICATION (Fluticasone-Vilanterol [Breo Ellipta] 1 INH) IN SCH (04:45)
[2018-11-27] MEDS ORDERED: NS 1000 ML 1,000 ML ONE (04:57)
[2018-11-27 05:13] LABS: CHOL/HDL RATIO 3.3 (0.0-5.0)
[2018-11-27] MEDS: NS 1000 ML 1,000 ML IV SCH ×2 (05:23→18:08)
[2018-11-27 05:41] VITALS: BMI 37.8
[2018-11-27] MEDS: PULMICORT NEB TX 0.5 MG NEB SCH (08:33)
[2018-11-27] MEDS: PROVENTIL NEB TX 0.083% 2.5MG/ 3ML NEB SCH (08:33)
[2018-11-27] MEDS ORDERED: DUONEB 0.5 MG/3 MG NEB PRN (09:00)
[2018-11-27] MEDS: KEPPRA TAB 500 MG PO SCH ×2 (09:07→20:39)
[2018-11-27] MEDS: LOVENOX INJ 40 MG SYR SC SCH (09:08)
[2018-11-27] MEDS: THYROID 90 MG PO SCH (09:09)
[2018-11-27 09:29] LABS: CREATINE KINASE 86 Units/L (26-192); CREATINE KINASE MB < 1.0 ng/mL (0-4.0); TROPONIN I < 0.02 ng/mL (0-1.5)
[2018-11-27 09:38] LABS: CKMB % 1.2 % (<4)
[2018-11-27 15:13] LABS: CREATINE KINASE 71 Units/L (26-192); CREATINE KINASE MB < 1.0 ng/mL (0-4.0); TROPONIN I < 0.02 ng/mL (0-1.5)
[2018-11-27 15:17] LABS: CKMB % 1.4 % (<4)
[2018-11-27] MEDS ORDERED: SYNTHROID 100 mcg TAB PO SCH (17:10)
[2018-11-27] MEDS: HYDROCHLOROTHIAZIDE 25 MG TAB PO SCH (18:07)
[2018-11-27] MEDS: DEPAKOTE ER PO SCH (18:07)
[2018-11-27] MEDS: ESTRACE PO SCH (18:08)
[2018-11-27] MEDS: MICRO K EXTEN CAP 10 MEQ PO SCH (20:39)
[2018-11-27] MEDS ORDERED: HEMOCYTE-PLUS PO SCH (21:00)
[2018-11-27] MEDS ORDERED: COZAAR PO SCH (21:00)
[2018-11-27] MEDS ORDERED: ASPIRIN 81 MG CHEWTAB PO SCH (21:00)
[2018-11-27] MEDS ORDERED: REQUIP PO SCH (21:00)
[2018-11-27] MEDS ORDERED: PROTONIX TAB 40 MG PO SCH (21:00)
[2018-11-27] MEDS ORDERED: MAALOX or MYLANTA PO PRN (21:04)
[2018-11-28 05:09] LABS: BASOPHILS % (AUTO) 0.5 % (0.2-1.0); EOSINOPHILS % (AUTO) 0.9 % (0.9-2.9); HEMATOCRIT 39.6 % (36.0-47.0); HEMOGLOBIN 13.4 g/dL (12.0-16.0); LYMPHOCYTES # (AUTO) 2.5 X10^3/uL (1.3-2.9); LYMPHOCYTES % (AUTO) 46.8 % (21.0-51.0); MEAN CORPUSCULAR HEMOGLOBIN 30.1 pg (27.0-34.0); MEAN CORPUSCULAR VOLUME 88.8 fL (80.0-100.0); MEAN PLATELET VOLUME 8.8 fL (7.4-11.0); MONOCYTES # (AUTO) 0.4 x10^3/uL (0.3-0.8); MONOCYTES % (AUTO) 7.9 % (0.0-13.0); NEUTROPHILS # (AUTO) 2.3 x10^3/uL (2.2-4.8); NEUTROPHILS % (AUTO) 43.9 % (42.0-75.0); PLATELET COUNT 165 X10^3/uL (150.0-450.0); RED BLOOD COUNT 4.46 X10^6/uL (3.5-5.4); WHITE BLOOD COUNT 5.3 X10^3/uL (3.6-10.0)
[2018-11-28 05:21] LABS: ALANINE AMINOTRANSFERASE 29 Units/L (12-78); ALBUMIN 2.9 g/dL (3.4-5.0); ALKALINE PHOSPHATASE 54 Units/L (46-116); ASPARTATE AMINO TRANSFERASE 16 Units/L (15-37); BLOOD UREA NITROGEN 15 mg/dL (7-18); CALCIUM 8.4 mg/dL (8.5-10.1); CARBON DIOXIDE 32.4 mmol/L (21-32); CHLORIDE 106 mmol/L (98-107); COR CA(FOR HYPOALB) 9.3 mg/dL (8.5-10.1); CREATININE 0.93 mg/dL (0.55-1.02); SODIUM 143 mmol/L (136-145); TOTAL PROTEIN 5.6 g/dL (6.4-8.2); eGFR NON BLACK RACES > 60 (>60)
[2018-11-28] MEDS: NS 1000 ML 1,000 ML IV SCH (06:15)
[2018-11-28] MEDS: PROVENTIL NEB TX 0.083% 2.5MG/ 3ML NEB SCH (08:45)
[2018-11-28] MEDS: PULMICORT NEB TX 0.5 MG NEB SCH (08:45)
[2018-11-28 08:46] VITALS: BP 131/73
[2018-11-28] MEDS ORDERED: PriLOSEC PO SCH (09:00)
[2018-11-28] MEDS: DEPAKOTE ER PO SCH ×2 (09:16→09:18)
[2018-11-28] MEDS: ESTRACE PO SCH ×2 (09:16→09:18)
[2018-11-28] MEDS: LOVENOX INJ 40 MG SYR SC SCH (09:19)
[2018-11-28] MEDS: THYROID 90 MG PO SCH (09:19)
[2018-11-28] MEDS: KEPPRA TAB 500 MG PO SCH (09:19)
[2018-11-28] MEDS: MICRO K EXTEN CAP 10 MEQ PO SCH (09:19)
[2018-11-28] MEDS: HYDROCHLOROTHIAZIDE 25 MG TAB PO SCH (09:20)
== END 2018-11-28 10:40 | disposition home or self-care (01) ==
LOC: ER 02:26 → MED/SURG 02:26
PROVIDERS: ADMIT Internal Medicine; ATTEND Internal Medicine
DX: E03.8 Other specified hypothyroidism; Z79.899 Other long term (current) drug therapy; R07.89 Other chest pain; E87.6 Hypokalemia; G40.802 Other epilepsy, not intractable, without status epilepticus; K21.9 Gastro-esophageal reflux disease without esophagitis; Z79.01 Long term (current) use of anticoagulants; R94.31 Abnormal electrocardiogram [ECG] [EKG]
CPT/HCPCS: 36415; 71010; 71045; 80053; 80061; 80164; 82550; 82553; 83735; 84443; 84484; 85025; 85378; 85610; 85730; 93005; 94640; 94760; 96365; 96367; 99217; 99218; 99284; A4216; A4222; G0378; J7030; J7613; J7626

== ENCOUNTER 2025-08-08 19:05 | Inpatient (IN) ==
[2025-08-08] MEDS: NS 1,000 ML IV 1,000 ML IV ONE (19:39)
[2025-08-08] MEDS: ZOFRAN INJ 4 MG VIAL IVP ONE (19:39)
[2025-08-08 19:45] LABS: MEAN PLATELET VOLUME 8.4 fL (7.4-11.0); RED CELL DISTRIBUTION WIDTH 14.3 % (11.6-16.5)
[2025-08-08] MEDS: REGLAN INJ 10 MG VIAL IVP ONE (19:46)
[2025-08-08 19:53] LABS: COR CA(FOR HYPOALB) 8.0 mg/dL (8.5-10.1); COR NA(FOR HYPERGLY) 142 mmol/L (136-145); CREATININE 0.85 mg/dL (0.55-1.02); eGFR NON BLACK RACES > 60 (>60)
--- NOTE | 2025-08-08 20:34 | ED.ABDFE ---
HPI Time Seen Time Seen by Provider: 08/08/25 20:34 PCP Primary Care Physician: Suraj HPI Comment HPI Comment: 65 y/o with sz d/o w/sudden onset of n/v/d and abd cramping last night as below; she has not thrown up today but continues to have watery diarrhea and has not taken her sz medication; she was started on levaquin 08/01 and methylprednisolone for uri and gets more sob now than previously per the spouse; she denies cp, palpitations, fevers and chills. She has a hx of diverticulitis and reports that she had quite a bit of diarrhea then too. No one else is sick and she's noticed no blood. Her brought her seizure medications and gave them to her about 2300. Complaint Chief Complaint:: Patient c/o abd pain, cramping, nausea, vomitting, and diarrhea. Patient states she is unable to keep anything down. Patient states she has been getting over a respiratory illness. Spouse states he is concerned because patient is unable to take her seizure medications. Symptoms started approx 24 hours ago. COVID-19 Coronavirus risk:travel/contact w/high risk person: No Has patient experienced Coronavirus symptoms: Yes Coronavirus symptoms experienced: Shortness of Breath Source History Provided: Patient Mode of arrival Mode of Arrival: Wheelchair Timing Onset of Chief Complaint: 08/07/25 PMH PMH Past Medical History: Yes Past Medical History: Anemia, Angina, Asthma, Dyslipidemia, GERD, Hypertension, Hypothyroidism and Seizures Past Medical History Comment: diverticulitis Past Surgical History: Yes Surgical History: Cholecystectomy, Hysterectomy, Tonsillectomy and Other Family History History of Family Medical Conditions: Yes Family Medical History: Hypertension Social History Does any household member use tobacco: No Alcohol Use: None Do you use any recreational Drugs:: No Lives With: Family Lives Where: Home Travel Risk Coronavirus risk:travel/contact w/high risk person: No Has patient experienced Coronavirus symptoms: Yes Coronavirus symptoms experienced: Shortness of Breath Infectious screening In the last 2 months have you had wt loss of >10#?: NO Have you had fever, night sweats or hemotysis?: No Have you traveled outside the country in the last 6 months?: No Isolation: Standard ROS Review of Systems Constitutional: No Symptoms Reported Eyes: No Symptoms Reported ENTM: No Symptoms Reported Respiratoy: No Symptoms Reported Cardiovascular: No Symptoms Reported Gastrointestinal/Abdominal: See HPI Genitourinary: No Symptoms Reported Neurological: No Symptoms Reported Musculoskeletal: No Symptoms Reported Integumentary: No Symptoms Reported Hematologic/Lymphatic: No Symptoms Reported Endocrine: No Symptoms Reported Psychiatric: No Symptoms Reported PE Vital Signs Vitals: Vital Signs Pulse Rate 116 Pulse Rate 133 Pulse Rate 114 Pulse Rate 116 Pulse Rate 119 Pulse Rate 116 Pulse Rate 116 Pulse Rate 119 Pulse Rate 120 Pulse Rate 118 Pulse Rate 119 Pulse Rate 117 Pulse Rate 122 Pulse Rate 121 Pulse Rate 121 Pulse Rate 126 Pulse Rate 121 Pulse Rate 123 Pulse Rate 123 Pulse Rate 125 Pulse Rate 125 Pulse Rate 128 Pulse Rate 129 Pulse Rate 135 Pulse Rate 124 Pulse Rate 121 Pulse Rate 119 Pulse Rate 118 Pulse Rate 127 Respiratory Rate 24 Respiratory Rate 23 Respiratory Rate 27 Respiratory Rate 25 Respiratory Rate 26 Respiratory Rate 25 Respiratory Rate 25 Respiratory Rate 33 Respiratory Rate 29 Respiratory Rate 29 Respiratory Rate 20 Respiratory Rate 23 Respiratory Rate 20 Respiratory Rate 28 Respiratory Rate 39 Respiratory Rate 29 Respiratory Rate 29 Respiratory Rate 25 Blood Pressure 134/74 Blood Pressure 135/76 Blood Pressure 136/76 Blood Pressure 134/84 Blood Pressure 138/75 Blood Pressure 161/77 Blood Pressure 178/84 Blood Pressure 174/91 Blood Pressure 166/90 Blood Pressure 170/77 Blood Pressure 153/67 O2 Sat by Pulse Oximetry 93 O2 Sat by Pulse Oximetry 93 O2 Sat by Pulse Oximetry 92 O2 Sat by Pulse Oximetry 92 O2 Sat by Pulse Oximetry 91 O2 Sat by Pulse Oximetry 93 O2 Sat by Pulse Oximetry 97 O2 Sat by Pulse Oximetry 93 O2 Sat by Pulse Oximetry 92 O2 Sat by Pulse Oximetry 94 O2 Sat by Pulse Oximetry 92 O2 Sat by Pulse Oximetry 94 O2 Sat by Pulse Oximetry 93 O2 Sat by Pulse Oximetry 94 O2 Sat by Pulse Oximetry 95 O2 Sat by Pulse Oximetry 93 O2 Sat by Pulse Oximetry 93 O2 Sat by Pulse Oximetry 97 O2 Sat by Pulse Oximetry 95 O2 Sat by Pulse Oximetry 95 General Limitations: No Limitations and Language Barrier General Appearance: Alert and In No Apparent Distress Head Head Exam: Normal Inspection Eyes Eye exam: Normal Appearance ENT ENT Exam: Mucous Membranes Dry Neck Neck Exam: Normal Inspection Chest Chest Inspection: Normal Inspection Respiratory Respiratory Exam: Normal Lung Sounds Bilat Cardiovascular Cardiovascular Exam: Normal Rhythm and Tachycardia Abdominal Exam Abdominal Exam: Distention, Tenderness (diffusely but more so in blq/suprapubic) and Hypoactive Bowel Sounds; negative Rebound or Rigidity Rectal Rectal Exam: Deferred Back Back Exam: Normal Inspection Extremeties Extremities Exam: Normal Inspection Neurologic Neurological Exam: Alert and Oriented X3 Psychiatric Psychiatric Exam: Normal Affect and Normal Mood Skin Skin Exam: Warm, Dry and Intact COURSE Reevaluation 1st: Unchanged 2nd: Improved 3rd: Worsened (pain has returned) Consultation Call Returned: 05:20 (s/w Dr Martin who accepts admission.) Critical Care Notes Total Time (mins): 30 Critical Diagnosis: perforated sigmoid colon, diverticulitis, C. diff Critical Interventions: fluids, pain control, ct abd/pelvis/chest several updates/discussion of results with both pt and discussion re; results/need for admission w/Dr Ny Labs Reviewed Laboratory Results Reviewed?: Yes 08/08/25 19:33 08/08/25 19:33 Laboratory: WBC 7.9 X10^3/uL (3.6-10.0) 08/08/25 19:33 RBC 5.78 X10^6/uL (3.5-5.4) H 08/08/25 19:33 Hgb 16.6 g/dL (12.0-16.0) H 08/08/25 19:33 Hct 48.8 % (36.0-47.0) H 08/08/25 19:33 MCV 84.4 fL (80.0-100.0) 08/08/25 19:33 MCH 28.7 pg (27.0-34.0) 08/08/25 19:33 MCHC 34.0 g/dL (33.0-35.0) 08/08/25 19:33 RDW 14.3 % (11.6-16.5) 08/08/25 19:33 Plt Count 228 X10^3/uL (150.0-450.0) 08/08/25 19:33 MPV 8.4 fL (7.4-11.0) 08/08/25 19:33 Neut % (Auto) 81.0 % (42.0-75.0) H 08/08/25 19:33 Lymph % (Auto) 10.9 % (21.0-51.0) L 08/08/25 19:33 [place] % (Auto) 7.6 % (0.0-13.0) 08/08/25 19:33 Eos % (Auto) 0.2 % (0.9-2.9) L 08/08/25 19:33 Baso % (Auto) 0.3 % (0.2-1.0) 08/08/25 19:33 Neut # (Auto) 6.4 x10^3/uL (2.2-4.8) H 08/08/25 19:33 Lymph # (Auto) 0.9 X10^3/uL (1.3-2.9) L 08/08/25 19:33 [place] # (Auto) 0.6 x10^3/uL (0.3-0.8) 08/08/25 19:33 Eos # (Auto) 0.0 x10^3/uL (0.0-0.2) 08/08/25 19:33 Baso # (Auto) 0.0 X10^3/uL (0.0-0.1) 08/08/25 19:33 Absolute Nucleated RBC 0.3 /100WBC 08/08/25 19:33 Sodium 141 mmol/L (136-145) 08/08/25 19:33 Corrected Sodium 142 mmol/L (136-145) 08/08/25 19:33 Potassium 3.1 mmol/L (3.5-5.1) L 08/08/25 19:33 Chloride 102 mmol/L (98-107) 08/08/25 19:33 Carbon Dioxide 29.6 mmol/L (21-32) 08/08/25 19:33 BUN 19 mg/dL (7-18) H 08/08/25 19:33 Creatinine 0.85 mg/dL (0.55-1.02) 08/08/25 19:33 Est GFR (MDRD) Af Amer > 60 (>60) 08/08/25 19:33 Est GFR (MDRD) Non-Af > 60 (>60) 08/08/25 19:33 Glucose 134 mg/dL (65-99) H 08/08/25 19:33 Calcium 7.4 mg/dL (8.5-10.1) L 08/08/25 19:33 Corrected Calcium 8.0 mg/dL (8.5-10.1) L 08/08/25 19:33 Total Bilirubin 0.70 mg/dL (0.2-1.0) 08/08/25 19:33 AST 15 Units/L (15-37) 08/08/25 19:33 ALT 25 Units/L (12-78) 08/08/25 19:33 Alkaline Phosphatase 63 Units/L (46-116) 08/08/25 19:33 Total Protein 6.5 g/dL (6.4-8.2) 08/08/25 19:33 Albumin 3.3 g/dL (3.4-5.0) L 08/08/25 19:33 Globulin 3.2 g/dL (2.5-4.5) 08/08/25 19:33 Albumin/Globulin Ratio 1.0 Ratio (1.1-2.1) L 08/08/25 19:33 Amylase 39 Units/L (25-115) 08/08/25 19:33 Lipase 19 Units/L (16-77) 08/08/25 19:33 Stl C. diff Tox B Gene Positive (NEGATIVE) A 08/08/25 23:25 Stl C. diff [id number] Negative (NEGATIVE) 08/08/25 23:25 C. difficile Toxin A&B Negative (NEGATIVE) 08/08/25 23:25 SARS CoV-2 RNA Rapid ARABELLA Negative (NEGATIVE) 08/08/25 20:46 Other Results Comments: 65 y/o with hx seizures in with n/v/profuse diarrhea and found to have C. diff and perforated sigmoid colon d/t diverticulitis; she received iv flagyl but po vancomycin was not given d/t nausea; ultimately dc'ed d/t pre-op status; zosyn added per Dr Weller. Results d/w pt and who agree with admission/surgery. XRAY XRAY Interpreted by: Radiologist (read at 0530, ordered [id number]) X-ray Results: ct abd/pelvis: Acute diverticulitis of the proximal sigmoid colon with perforation and presence of scattered pneumoperitoneum throughout the upper quadrants. No evidence for abscess. Widespread colonic diverticulosis. Appendix normal. No significant small bowel dilatation. ct chest: No acute intrathoracic abnormality identified. Opioid Opioid Risk Tool Age (Mohsen box if 16-45): No History of Preadolescent Sexual Abuse: No Total: 0 Total Score Risk Category: Low Risk Copyright: [facility] predicting aberrant behaviors Discharge Plan Diagnosis Discharge Problem: Perforation of sigmoid colon due to diverticulitis, C. difficile colitis Discharge Plan Patient Disposition: 09 ADMITTED INPATIENT Condition: Stable
[2025-08-08] MEDS: K-RIDER 10 MEQ/100 ML WATER 10 MEQ/100 ML BAG IV ONE ×2 (20:45→23:11)
[2025-08-08] MEDS: TORADOL 15 MG VIAL IVP ONE (23:10)
[2025-08-09] MEDS: FLAGYL IV PREMIX 500 MG BAG 500 MG/100 ML BAG IV STA (01:16)
--- NOTE | 2025-08-09 05:11 | CT ---
EXAM: CT CHEST WITHOUT CONTRAST HISTORY: Patient c/o abd pain, cramping, nausea, vomitting, and diarrhea. Patient states she is unable to keep anything down. Patient states she has been getting over a respiratory illness.; ANEMIA, ANGINA, ASTHMA, GERD, HTN, SEIZURES SX: ZACHARY, HYST, TONSILS COMPARISON: None. TECHNIQUE: Axial CT images were obtained through the chest without contrast. Coronal reformatted images were included. All CT scans at this facility use dose modulation, iterative reconstruction, and/or weight based dosing when appropriate to reduce radiation dose to as low as reasonably achievable. FINDINGS: SUPPORT DEVICES: None HEART, VESSELS, AND MEDIASTINUM: Within normal limits. LYMPH NODES: No pathologically enlarged nodes. LUNGS AND PLEURA: Within normal limits. AIRWAYS: Within normal limits. UPPER ABDOMEN: Within normal limits. BONES: Within normal limits. IMPRESSION: No acute intrathoracic abnormality identified. THIS IS AN ELECTRONICALLY VERIFIED FINAL REPORT 08/09/2025 5:08 AM - Electronically signed by Ab Mathis MD
--- NOTE | 2025-08-09 05:15 | CT ---
EXAM: CT ABDOMEN AND PELVIS WITHOUT CONTRAST HISTORY: Patient c/o abd pain, cramping, nausea, vomitting, and diarrhea. Patient states she is unable to keep anything down. Patient states she has been getting over a respiratory illness.; ANEMIA, ANGINA, ASTHMA, GERD, HTN, SEIZURES SX: CHOL,E HYST, TONSILS COMPARISON: None. TECHNIQUE: Axial CT images were obtained through the abdomen and pelvis without contrast. Coronal reformatted images were included. All CT scans at this facility use dose modulation, iterative reconstruction, and/or weight based dosing when appropriate to reduce radiation dose to as low as reasonably achievable. FINDINGS: Please note that without the use of intravenous contrast, evaluation of organ parenchyma is limited. LOWER THORAX: Normal ABDOMEN: LIVER: Normal GALLBLADDER: Surgically absent SPLEEN: Normal PANCREAS: Normal KIDNEYS: Normal ADRENAL GLANDS: Normal GI TRACT: Acute diverticulitis of the proximal sigmoid colon with perforation and presence of scattered pneumoperitoneum throughout the upper quadrants. No evidence for abscess. Widespread colonic diverticulosis. Appendix normal. No significant small bowel dilatation. LYMPH NODES: No enlarged nodes VESSELS: Normal PERITONEUM / RETROPERITONEUM: No significant ascites PELVIS: BLADDER: Normal GENITALS: Uterus surgically absent BONES: Normal IMPRESSION: Acute diverticulitis of the proximal sigmoid colon with perforation and presence of scattered pneumoperitoneum throughout the upper quadrants. No evidence for abscess. Widespread colonic diverticulosis. Appendix normal. No significant small bowel dilatation. THIS IS AN ELECTRONICALLY VERIFIED FINAL REPORT 08/09/2025 5:12 AM - Electronically signed by Ab Mathis MD
[2025-08-09] MEDS: ZOFRAN INJ 4 MG VIAL IVP ONE (05:38)
[2025-08-09] MEDS: MORPHINE SULFATE INJ 2 MG INJ IVP ONE (05:39)
--- NOTE | 2025-08-09 05:46 | EKG ---
Test Reason : preop Blood Pressure : */* mmHG Vent. Rate : 113 BPM Atrial Rate : 113 BPM P-R Int : 138 ms QRS Dur : 84 ms QT Int : 332 ms P-R-T Axes : 30 -34 40 degrees QTc Int : 455 ms Sinus tachycardia Left axis deviation Inferior infarct , age undetermined Anterolateral infarct , age undetermined Abnormal ECG No previous ECGs available Confirmed by Kermit Black MD ([id number]) on 08/09/2025 7:19:40 AM Referred By: Confirmed By: Kermit Black MD
[2025-08-09] MEDS: NS 1,000 ML IV 1,000 ML IV SCH (06:08)
[2025-08-09] MEDS: ZOSYN VIAL 3.375 GRAMS 3.375 G in NS 100 ML IV 100 ML IV SCH (06:10)
[2025-08-09 09:46] LABS: MEAN PLATELET VOLUME 8.5 fL (7.4-11.0); RED CELL DISTRIBUTION WIDTH 14.6 % (11.6-16.5)
[2025-08-09 09:49] LABS: BLOOD/HEMOGLOBIN,URINE 1+ (NEGATIVE); LEUKOCYTE ESTERASE ,URINE NEGATIVE (NEGATIVE); NITRITES,URINE NEGATIVE (NEGATIVE)
[2025-08-09 09:51] LABS: INR 1.28 (0.8-1.3)
[2025-08-09 09:56] LABS: COR CA(FOR HYPOALB) 7.8 mg/dL (8.5-10.1); COR NA(FOR HYPERGLY) 142 mmol/L (136-145); CREATININE 1.04 mg/dL (0.55-1.02); eGFR NON BLACK RACES 57 (>60)
[2025-08-09 09:58] LABS: APPEARANCE,URINE CLEAR (CLEAR)
[2025-08-09 09:59] LABS: SQUAMOUS EPITHELIAL CELL,UR RARE /HPF (NEGATIVE)
[2025-08-09] MEDS: DEPAKOTE SPRINKLE PO SCH (10:11)
[2025-08-09] MEDS: KEPPRA TAB 500 MG PO SCH (10:11)
[2025-08-09] MEDS: FLAGYL IV PREMIX 500 MG BAG 500 MG/100 ML BAG IV SCH (10:12)
[2025-08-09] MEDS: PATIENT'S HOME MEDICATION TD SCH (10:15)
[2025-08-09] MEDS: MORPHINE SULFATE INJ 2 MG INJ IVP PRN (10:18)
--- NOTE | 2025-08-09 10:55 | RAD ---
EXAM: CHEST, 1 VIEW HISTORY: SOB, ABD PAIN ; COMPARISON: 04/05/2020 TECHNIQUE: AP FINDINGS: Mildly prominent cardiac silhouette, accentuated by AP technique. Low lung volumes. No focal consolidation, large pleural effusion, or visible pneumothorax. IMPRESSION: Low lung volumes. No focal consolidation. THIS IS AN ELECTRONICALLY VERIFIED FINAL REPORT 08/09/2025 10:44 AM - Electronically signed by Yaniv Francisco MD
--- NOTE | 2025-08-09 10:55 | RAD ---
EXAM: KUB HISTORY: SOB, ABD PAIN ; COMPARISON: CT dated 08/08/2025 TECHNIQUE: AP abdomen, supine FINDINGS: No abnormally distended bowel loops. No significant colonic stool burden. No gross free peritoneal air seen on supine view. IMPRESSION: Normal bowel gas pattern. No gross free peritoneal air seen on AP view. THIS IS AN ELECTRONICALLY VERIFIED FINAL REPORT 08/09/2025 10:46 AM - Electronically signed by Yaniv Francisco MD
[2025-08-09] MEDS: D5 1/2 NS 1,000 ML 1,000 ML IV SCH ×2 (12:05→17:00)
[2025-08-09] MEDS: PROVENTIL NEB TX 0.083% 2.5MG/ 3ML NEB SCH (12:40)
[2025-08-09] MEDS: TOPROL XL PO ONE (13:03)
--- NOTE | 2025-08-09 13:29 | DR.PROGNOT ---
HOSPITAL PROGRESS NOTE Progress Note for Day of: Progress Note Date: 08/09/25 Chief Complaint Chief Complaint: Abdominal pain is stable, no further nausea or vomiting, she was having loose bowel movement, negative for C. difficile. Repeated KUB did not show any free air, normal gas pattern, no evidence of obstruction. Chest x-ray was read as normal. Her white count was 12.8, BUN 19 creatinine 1.04, potassium 3.4, platelet count 2 4. Abdomen is soft with diffuse tenderness involving the lower abdomen, bowel sounds are present but hypoactive. Past Medical Family Social History Allergies: Allergies No Known Drug Allergies Allergy (Verified 11/27/18 02:37) Vital Signs Vital Signs: Vital Signs Temperature 99.6 F Temperature 97.3 F Temperature 97.3 F Temperature 97.3 F Temperature 100.1 F Pulse Rate [Radial] 117 Pulse Rate [Radial] 117 Pulse Rate [Radial] 118 Pulse Rate [Radial] 118 Pulse Rate [Radial] 111 Pulse Rate 98 Pulse Rate 112 Pulse Rate 112 Pulse Rate 115 Respiratory Rate 29 Respiratory Rate 24 Respiratory Rate 24 Respiratory Rate 24 Respiratory Rate 24 Respiratory Rate 28 Respiratory Rate 29 Respiratory Rate 29 Respiratory Rate 18 Respiratory Rate 29 Blood Pressure [Left Arm] 117/57 Blood Pressure [Left Arm] 134/68 Blood Pressure [Left Arm] 139/69 Blood Pressure [Left Arm] 139/69 Blood Pressure [Left Arm] 139/69 Blood Pressure 139/69 Blood Pressure 139/69 Blood Pressure 130/67 O2 Sat by Pulse Oximetry 98 O2 Sat by Pulse Oximetry 93 O2 Sat by Pulse Oximetry 93 O2 Sat by Pulse Oximetry 94 O2 Sat by Pulse Oximetry 96 O2 Sat by Pulse Oximetry 96 O2 Sat by Pulse Oximetry 89 O2 Sat by Pulse Oximetry 89 Physical Exam Oriented: Normal Eyes: Normal Ear: Normal Nose: Normal Throat: Normal Respiratory: Normal Cardiovascular: Normal GI:Auscultation: Decreased GI: Tenderness: Diffuse (Soft with diffuse tenderness most of the abdomen and more towards the left lower quadrant. No masses were felt) Speech Pattern: Clear and Appropriate Laboratory and Diagnostics 08/09/25 09:28 08/09/25 09:28 Labs: Laboratory WBC 12.8 X10^3/uL (3.6-10.0) H 08/09/25 09:28 RBC 5.46 X10^6/uL (3.5-5.4) H 08/09/25 09:28 Hgb 15.3 g/dL (12.0-16.0) 08/09/25: Hct 46.2 % (36.0-47.0) 08/09/25: MCV 84.6 fL (80.0-100.0) 08/09/25 09: MCH 28.1 pg (27.0-34.0) 08/09/25: MCHC 33.2 g/dL (33.0-35.0) 08/09/25: RDW 14.6 % (11.6-16.5) 08/09/25: Plt Count 204 X10^3/uL (150.0-450.0) 08/09/25 MPV 8.5 fL (7.4-11.0) 08/09/25 Neut % (Auto) 88.5 % (42.0-75.0) H 08/09/25 Lymph % (Auto) 6.1 % (21.0-51.0) L 08/09/25: [place] % (Auto) 5.0 % (0.0-13.0) 08/09/25: Eos % (Auto) 0.1 % (0.9-2.9) L 08/09/25 Baso % (Auto) 0.3 % (0.2-1.0) 08/09/25 Neut # (Auto) 11.4 x10^3/uL (2.2-4.8) H 08/09/25: Lymph # (Auto) 0.8 X10^3/uL (1.3-2.9) L 08/09/25: [place] # (Auto) 0.6 x10^3/uL (0.3-0.8) 08/09/25: Eos # (Auto) 0.0 x10^3/uL (0.0-0.2) 08/09/25 Baso # (Auto) 0.0 X10^3/uL (0.0-0.1) 08/09/25: Absolute Nucleated RBC 0.1 /100WBC 08/09/25: PT 16.1 SECONDS (11.8-14.3) 08/09/25 09: INR Target Range - 08/09/25 09: INR 1.28 (0.8-1.3) 08/09/25 09:28 Sodium 141 mmol/L (136-145) 08/09/25 09: Corrected Sodium 142 mmol/L (136-145) 08/09/25 09: Potassium 3.4 mmol/L (3.5-5.1) L 08/09/25 09: Chloride 105 mmol/L (98-107) 08/09/25 09: Carbon Dioxide 30.6 mmol/L (21-32) 08/09/25 09: BUN 19 mg/dL (7-18) H 08/09/25 09: Creatinine 1.04 mg/dL (0.55-1.02) H 08/09/25 09:28 Est GFR (MDRD) Af Amer > 60 (>60) 08/09/25 09: Est GFR (MDRD) Non-Af 57 (>60) L 08/09/25 09: Glucose 129 mg/dL (65-99) H 08/09/25 09: Calcium 6.8 mg/dL (8.5-10.1) L 08/09/25 09:28 Corrected Calcium 7.8 mg/dL (8.5-10.1) L 08/09/25 09:28 Total Bilirubin 0.80 mg/dL (0.2-1.0) 08/09/25 09: AST 14 Units/L (15-37) L 08/09/25 09:28 ALT 20 Units/L (12-78) 08/09/25 09:28 Alkaline Phosphatase 50 Units/L (46-116) 08/09/25 09: Total Protein 5.8 g/dL (6.4-8.2) L 08/09/25 09:28 Albumin 2.7 g/dL (3.4-5.0) L 08/09/25 09:28 Globulin 3.1 g/dL (2.5-4.5) 08/09/25 09:28 Albumin/Globulin Ratio 0.9 Ratio (1.1-2.1) L 08/09/25 09:28 Amylase 39 Units/L (25-115) 08/08/25 19:33 Lipase 19 Units/L (16-77) 08/08/25 19:33 Specimen Type Catherized urine 08/09/25 09:35 Urine Color Dark yellow (YELLOW) 08/09/25 09:35 Urine Appearance Clear (CLEAR) 08/09/25 09:35 Urine pH 6.0 (5.0 - 8.0) 08/09/25 09:35 Ur Specific [place] 1.025 (1.000-1.030) 08/09/25 09:35 Urine Protein 2+ (NEGATIVE) 08/09/25 09:35 Urine Glucose (UA) Negative (NEGATIVE) 08/09/25 09:35 Urine Ketones 2+ (NEGATIVE) 08/09/25 09:35 Urine Blood 1+ (NEGATIVE) 08/09/25 09:35 Urine Nitrite Negative (NEGATIVE) 08/09/25 09:35 Urine Bilirubin Negative (NEGATIVE) 08/09/25 09:35 Urine Urobilinogen Normal (NORMAL) 08/09/25 09:35 Ur Leukocyte Esterase Negative (NEGATIVE) 08/09/25 09:35 Urine RBC None seen /HPF (0-3) 08/09/25 09:35 Urine WBC 0-2 /HPF (0-5) 08/09/25 09:35 Ur Squamous Epith Cells Rare /HPF (NEGATIVE) 08/09/25 09:35 Ur Renal Epithelial Cell Few /HPF (NEGATIVE) 08/09/25 09:35 Amorphous Sediment Trace /HPF (NEGATIVE) 08/09/25 09:35 Urine Bacteria Trace /HPF (NEGATIVE) 08/09/25 09:35 Urine Mucus Moderate /HPF (NEGATIVE) 08/09/25 09:35 Ur Culture Indicated? No/not indicated 08/09/25 09:35 Stl C. diff Tox B Gene Positive (NEGATIVE) A 08/08/25 23:25 Stl C. diff 027-NAP1-BI Negative (NEGATIVE) 08/08/25 23:25 C. difficile Toxin A&B Negative (NEGATIVE) 08/08/25 23:25 SARS CoV-2 RNA Rapid ARABELLA Negative (NEGATIVE) 08/08/25 20:46 Assessment and Plan 1: Acute diverticulitis with sealed perforation. Patient is on IV Zosyn and Flagyl, n.p.o. on IV fluid. Will observe closely for possible laparotomy. The findings and treatment plan were discussed in details with the patient and her family. Hopefully we can continue IV antibiotics and avoid surgery which end up with temporary colostomy Problem Patient Problems: Patient Problems C. difficile colitis (Acute) A04.72 Perforation of sigmoid colon due to diverticulitis (Acute) K57.20
[2025-08-09] MEDS ORDERED: CONSULT PHARMACY - POTASSIUM & MAGNESIUM XX SCH (16:00)
--- NOTE | 2025-08-09 16:44 | DR.CONSULT ---
CONSULT Consultation for Day of: Date: 08/09/25 Chief Complaint Chief Complaint: abd pain/preop/abnormal ekg Allergies Allergies Allergy/AdvReac Type Severity Reaction Status Date / Time No Known Drug Allergies Allergy Verified 11/27/18 02:37 History of Present Illness History of Present Illness: 65 yo female- htn-abnormal ekg suggesting ant/lat /inf mi dating back years- cath 2017: no cad- recent nuc stress 07/22: normal LV/no ischemia- before sick over last few weeks- no sign CV sx/rode bike 1mile/day- needs abd surgery for ruptures diverticuli. Past Medical History Past Medical History: Anemia, Angina, Asthma, Dyslipidemia, GERD, Hypertension, Hypothyroidism and Seizures Past Surgical History Surgical History: Cholecystectomy and Hysterectomy Family History Family Medical History: Hypertension Social History Does patient currently use any type of tobacco product: No Type of Tobacco Use: None Does any household member use tobacco: No Alcohol Use: None Drug Use: None Medications Home Medications: No Known Drug Allergies Allergy (Verified 11/27/18 02:37) CONTINUE taking the following medications clonazepam 0.5 mg tablet 0.5 mg PO HS 08/09/25 [History] dexlansoprazole 30 mg capsule,biphase delayed release 30 mg PO QDAY 08/09/25 [History] divalproex 250 mg tablet,extended release 24 hr 250 mg PO QDAY 08/09/25 [History] divalproex 500 mg tablet,extended release 24 hr 500 mg PO HS 08/09/25 [History] ergocalciferol (vitamin D2) 1,250 mcg (50,000 unit) capsule 1,250 mcg PO 2XW 08/09/25 [History] estradiol 1 mg tablet 1 mg PO QDAY 08/09/25 [History] ezetimibe 10 mg tablet 10 mg PO HS 08/09/25 [History] hydrochlorothiazide 25 mg tablet 25 mg PO QDAY 08/09/25 [History] levetiracetam 500 mg tablet 1,000 mg PO BID 08/09/25 [History] losartan 25 mg tablet 25 mg PO BID 08/09/25 [History] mirabegron 25 mg tablet,extended release 24 hr 25 mg PO QDAY 08/09/25 [History] potassium chloride 10 mEq capsule,extended release 10 meq PO BID 08/09/25 [Histo ry] sucralfate 1 gram tablet 1 g PO BID 08/09/25 [History] thyroid (pork) 120 mg tablet (CAB WORKER Thyroid) 120 mg PO QAM 08/09/25 [History] Physical Exam Vital Signs: Vital Signs Temperature 100.1 F Temperature 99.6 F Pulse Rate [Radial] 94 Pulse Rate [Radial] 117 Pulse Rate [Radial] 117 Pulse Rate 93 Pulse Rate 98 Respiratory Rate 25 Respiratory Rate 24 Respiratory Rate 29 Respiratory Rate 24 Respiratory Rate 24 Blood Pressure [Left Arm] 101/67 Blood Pressure [Left Arm] 117/57 Blood Pressure [Left Arm] 134/68 O2 Sat by Pulse Oximetry 94 O2 Sat by Pulse Oximetry 95 O2 Sat by Pulse Oximetry 98 O2 Sat by Pulse Oximetry 93 O2 Sat by Pulse Oximetry 93 alert ox3 clear lungs tachy soft flow murmur tender abdomen minimal edema labs: wbc 12.8 hct 46 k 3.4 cr 1.04 alb 2.7 cxr: low lung volumes/no consolidation abd ct: acute diverticulitis/pneumoperitoneum echo: asym LVH/hyperdynamic heart gradient out lvot 16 ( echoes in past: conc LVH) Plan (1) Abnormal EKG: Status: Acute Narrative Support Text: no cad by cath 2016/normal stress 07/22- lvh on echoes in past (2) HTN (hypertension): Status: Chronic Plan: resume losartan. add BB (3) Preop cardiovascular exam: Status: Acute Narrative Support Text: acceptable cv risk
[2025-08-09] MEDS: COZAAR PO SCH (17:21)
[2025-08-09] MEDS ORDERED: K-RIDER 10 MEQ/100 ML WATER 10 MEQ/100 ML BAG IV ONE (19:40)
[2025-08-09] MEDS: K-RIDER 10 MEQ/100 ML WATER 10 MEQ/100 ML BAG IV SCH (20:03)
[2025-08-09] MEDS: COLACE CAP 100 MG PO SCH (21:02)
[2025-08-09] MEDS: DEPAKOTE PO SCH (21:02)
[2025-08-09] MEDS: MAGNESIUM SULFATE 1 GRAM/100 mL PREMIX 1 G/100 ML BAG IV SCH (21:02)
[2025-08-09] MEDS: NS 250 ML IV 25 ML IV PRN (21:06)
[2025-08-10 04:54] LABS: MEAN PLATELET VOLUME 8.4 fL (7.4-11.0); RED CELL DISTRIBUTION WIDTH 14.6 % (11.6-16.5)
[2025-08-10 05:19] LABS: COR CA(FOR HYPOALB) 8.2 mg/dL (8.5-10.1); COR NA(FOR HYPERGLY) 138 mmol/L (136-145); CREATININE 0.91 mg/dL (0.55-1.02); eGFR NON BLACK RACES > 60 (>60)
[2025-08-10] MEDS: NS 1,000 ML IV 1,000 ML ONE (06:47)
[2025-08-10] MEDS: ZOFRAN INJ 4 MG VIAL ONE ×2 (06:47)
[2025-08-10] MEDS: MORPHINE SULFATE INJ 2 MG INJ ONE (06:47)
[2025-08-10] MEDS: ROBITUSSIN DM PO PRN (08:19)
[2025-08-10] MEDS: TOPROL XL PO SCH (08:19)
[2025-08-10] MEDS: K-DUR TAB 20 MEQ PO SCH (08:20)
--- NOTE | 2025-08-10 08:31 | DR.CONSULT ---
CONSULT Consultation for Day of: Date: 08/09/25 Chief Complaint Chief Complaint: Abdominal pain due to diverticulitis with perforation Allergies Allergies Allergy/AdvReac Type Severity Reaction Status Date / Time No Known Drug Allergies Allergy Verified 11/27/18 02:37 History of Present Illness History of Present Illness: Patient is a 65-year-old female admitted for diverticulitis with perforation. Medicine consulted for medical management. General surgery is primary and has been following. Initial imaging on CT revealed an acute diverticulitis of the proximal sigmoid colon with perforation. No evidence of abscess. Patient was monitored and repeat KUB today revealed normal gas pattern. No gross free peritoneal air seen. Abdominal pain has improved since. She does have bowel movements. Stool culture negative for C. difficile. Labs: WBC 12.8, hemoglobin 15.3, platelets 204, sodium 141, potassium 3.4, creatinine 1.04, glucose 129. UA negative. Blood culture pending. She currently has an acute diverticulitis with sealed perforation. Will continue on IV Zosyn and Flagyl. She is on n.p.o. except for her medications. At this time surgery is monitoring. Will continue with IV fluids and antibiotics. Cardiology was consulted for cardiac clearance if she requires surgery. Otherwise continue with current treatment course. Continue closely monitor and follow-up labs/imaging. Time spent for clinical assessment, reviewing labs/imaging, physical exam, decision making and documentation greater than 45 mins. Past Medical History Past Medical History: Anemia, Angina, Asthma, Dyslipidemia, GERD, Hypertension, Hypothyroidism and Seizures Past Surgical History Surgical History: Cholecystectomy and Hysterectomy Family History Family Medical History: Hypertension Social History Does patient currently use any type of tobacco product: No Type of Tobacco Use: None Does any household member use tobacco: No Alcohol Use: None Drug Use: None Medications Home Medications: No Known Drug Allergies Allergy (Verified 11/27/18 02:37) CONTINUE taking the following medications clonazepam 0.5 mg tablet 0.5 mg PO HS 08/09/25 [History] dexlansoprazole 30 mg capsule,biphase delayed release 30 mg PO QDAY 08/09/25 [History] divalproex 250 mg tablet,extended release 24 hr 250 mg PO QDAY 08/09/25 [History] divalproex 500 mg tablet,extended release 24 hr 500 mg PO HS 08/09/25 [History] ergocalciferol (vitamin D2) 1,250 mcg (50,000 unit) capsule 1,250 mcg PO 2XW 08/09/25 [History] estradiol 1 mg tablet 1 mg PO QDAY 08/09/25 [History] ezetimibe 10 mg tablet 10 mg PO HS 08/09/25 [History] hydrochlorothiazide 25 mg tablet 25 mg PO QDAY 08/09/25 [History] levetiracetam 500 mg tablet 1,000 mg PO BID 08/09/25 [History] losartan 25 mg tablet 25 mg PO BID 08/09/25 [History] mirabegron 25 mg tablet,extended release 24 hr 25 mg PO QDAY 08/09/25 [History] potassium chloride 10 mEq capsule,extended release 10 meq PO BID 08/09/25 [History] sucralfate 1 gram tablet 1 g PO BID 08/09/25 [History] thyroid (pork) 120 mg tablet (NEGATIVE CUTTER Thyroid) 120 mg PO QAM 08/09/25 [History] Review of Systems Constitutional: Weakness Eyes: No Symptoms Reported ENT: No Symptoms Reported Respiratory: No Symptoms Reported Cardiovascular: No Symptoms Reported Gastrointestinal: Nausea and Abdominal Pain Genitourinary: No Symptoms Reported Musculoskeletal: No Symptoms Reported Skin: No Symptoms Reported Neurological: No Symptoms Reported Physical Exam Vital Signs: Vital Signs Temperature 98.0 F Pulse Rate 76 Pulse Rate 85 Pulse Rate 86 Pulse Rate 87 Respiratory Rate 24 Respiratory Rate 24 Respiratory Rate 26 Respiratory Rate 22 Respiratory Rate 19 Respiratory Rate 22 Respiratory Rate 24 Blood Pressure 124/68 Blood Pressure 116/63 Blood Pressure 119/63 Blood Pressure 109/57 O2 Sat by Pulse Oximetry 96 O2 Sat by Pulse Oximetry 98 O2 Sat by Pulse Oximetry 97 O2 Sat by Pulse Oximetry 98 Oriented: Normal Eyes: Normal Ear: Normal Nose: Normal Respiratory: Clear Throughout Cardiovascular: Normal : Normal Auscultation: Bowel Sounds: Normal Palpation: Normal Tenderness: Diffuse Skin: Normal Musculoskeletal: Normal Speech Pattern: Clear Plan (1) Perforation of sigmoid colon due to diverticulitis: Status: Acute (2) Abnormal EKG: Status: Acute (3) HTN (hypertension): Status: Chronic (4) Preop cardiovascular exam: Status: Acute (5) Seizure disorder: Status: Acute
[2025-08-10] MEDS: LOVENOX INJ 40 MG SYR SC SCH (08:37)
--- NOTE | 2025-08-10 10:13 | PCM.PROG ---
Progress Note Progress Note for Day of Date of Exam: 08/10/25 Subjective Subjective: Patient is a 65-year-old female admitted for acute diverticulitis with now sealed perforation. General Surgery is primary. Medicine consulted for medical management. This morning, she is resting in bed. She does report feeling a little more short of breath and having some swelling in her hands and legs. She reports she does take a diuretic at home. No acute events overnight. She reports the pain medication has been helping with her abdominal pain. There is a KUB that has been ordered this morning. Labs: WBC 10.5, hemoglobin 12.9, platelets 173, sodium 137, potassium 3.2, creatinine 0.91, glucose 136. Blood culture pending. Continue on IV Zosyn and Flagyl. She is on n.p.o. except for her medications. At this time surgery is monitoring. Reviewed home medication, likely diuretic is HCTZ. Will hold at this time, BP in good range. Will decrease IV fluids to 75ml/h and give IV lasix 10mg x 1 for edema. Replete electrolytes per protocol. She is receiving bronchodilators. Cardiology was consulted, acceptable cv risk if she requires surgery. Otherwise continue with current treatment course. Continue closely monitor and follow-up labs/imaging. Time spent for clinical assessment, reviewing labs/imaging, physical exam, decision making and documentation greater than 45 mins. Past Medical Family Social History Allergies: Allergies No Known Drug Allergies Allergy (Verified 08/10/25 09:06) Review of Systems ROS changes noted: see HPI Vital Signs and I&O's Vital Signs: Vital Signs Temperature 98.3 F Temperature 98.0 F Pulse Rate 76 Pulse Rate 76 Pulse Rate 85 Pulse Rate 86 Pulse Rate 87 Respiratory Rate 24 Respiratory Rate 24 Respiratory Rate 26 Respiratory Rate 22 Respiratory Rate 19 Respiratory Rate 22 Respiratory Rate 24 Blood Pressure 124/68 Blood Pressure 116/63 Blood Pressure 119/63 Blood Pressure 109/57 O2 Sat by Pulse Oximetry 96 O2 Sat by Pulse Oximetry 96 O2 Sat by Pulse Oximetry 98 O2 Sat by Pulse Oximetry 97 O2 Sat by Pulse Oximetry 98 Intake and Output: Intake & Output 08/07/25 08/08/25 08/09/25 08/10/25 23:59 23:59 23:59 23:59 Intake Total 2659 / 2659 1096 / 1096 Output Total 1349 / 1384 338 / 338 Balance 1310 / 1275 758 / 758 Physical Exam Oriented: Normal Eyes: Normal Ear: Normal Nose: Normal Throat: Normal Respiratory: Wheezes (faint b/l end expiratory) Cardiovascular: Normal : Normal Auscultation: Bowel Sounds: Normal Tenderness: Diffuse Skin: Normal Musculoskeletal: Normal Speech Pattern: Clear Laboratory and Diagnostics 08/10/25 04:23 08/10/25 04:23 Labs: Laboratory WBC 10.5 X10^3/uL (3.6-10.0) H 08/10/25 04:23 RBC 4.53 X10^6/uL (3.5-5.4) 08/10/25 04:23 Hgb 12.9 g/dL (12.0-16.0) D 08/10/25 04:23 Hct 38.1 % (36.0-47.0) 08/10/25 04:23 MCV 84.0 fL (80.0-100.0) 08/10/25 04:23 MCH 28.4 pg (27.0-34.0) 08/10/25 04:23 MCHC 33.8 g/dL (33.0-35.0) 08/10/25 04:23 RDW 14.6 % (11.6-16.5) 08/10/25 04:23 Plt Count 173 X10^3/uL (150.0-450.0) 08/10/25 04:23 MPV 8.4 fL (7.4-11.0) 08/10/25 04:23 Neut % (Auto) 79.8 % (42.0-75.0) H 08/10/25 04:23 Lymph % (Auto) 13.2 % (21.0-51.0) L 08/10/25 04:23 [place] % (Auto) 6.7 % (0.0-13.0) 08/10/25 04:23 Eos % (Auto) 0.1 % (0.9-2.9) L 08/10/25 04:23 Baso % (Auto) 0.2 % (0.2-1.0) 08/10/25 04:23 Neut # (Auto) 8.4 x10^3/uL (2.2-4.8) H 08/10/25 04:23 Lymph # (Auto) 1.4 X10^3/uL (1.3-2.9) 08/10/25 04:23 [place] # (Auto) 0.7 x10^3/uL (0.3-0.8) 08/10/25 04:23 Eos # (Auto) 0.0 x10^3/uL (0.0-0.2) 08/10/25 04:23 Baso # (Auto) 0.0 X10^3/uL (0.0-0.1) 08/10/25 04:23 Absolute Nucleated RBC 0.1 /100WBC 08/10/25 04:23 PT 16.1 SECONDS (11.8-14.3) 08/09/25 09:28 INR Target Range - 08/09/25 09:28 INR 1.28 (0.8-1.3) 08/09/25 09:28 Sodium 137 mmol/L (136-145) 08/10/25 04:23 Corrected Sodium 138 mmol/L (136-145) 08/10/25 04:23 Potassium 3.2 mmol/L (3.5-5.1) L 08/10/25 04:23 Chloride 103 mmol/L (98-107) 08/10/25 04:23 Carbon Dioxide 30.6 mmol/L (21-32) 08/10/25 04:23 BUN 15 mg/dL (7-18) 08/10/25 04:23 Creatinine 0.91 mg/dL (0.55-1.02) 08/10/25 04:23 Est GFR (MDRD) Af Amer > 60 (>60) 08/10/25 04:23 Est GFR (MDRD) Non-Af > 60 (>60) 08/10/25 04:23 Glucose 136 mg/dL (65-99) H 08/10/25 04:23 Lactic Acid 1.6 mmol/L (0.4-2.0) 08/09/25 15:58 Calcium 6.7 mg/dL (8.5-10.1) L 08/10/25 04:23 Corrected Calcium 8.2 mg/dL (8.5-10.1) L 08/10/25 04:23 Magnesium 2.6 mg/dL (2.0-2.9) 08/10/25 04:23 Total Bilirubin 0.70 mg/dL (0.2-1.0) 08/10/25 04:23 AST 10 Units/L (15-37) L 08/10/25 04:23 ALT 11 Units/L (12-78) L 08/10/25 04:23 Alkaline Phosphatase 43 Units/L (46-116) L 08/10/25 04:23 Total Protein 5.3 g/dL (6.4-8.2) L 08/10/25 04:23 Albumin 2.1 g/dL (3.4-5.0) L 08/10/25 04:23 Globulin 3.2 g/dL (2.5-4.5) 08/10/25 04:23 Albumin/Globulin Ratio 0.7 Ratio (1.1-2.1) L 08/10/25 04:23 Amylase 39 Units/L (25-115) 08/08/25 19:33 Lipase 19 Units/L (16-77) 08/08/25 19:33 Specimen Type Catherized urine 08/09/25 09:35 Urine Color Dark yellow (YELLOW) 08/09/25 09:35 Urine Appearance Clear (CLEAR) 08/09/25 09:35 Urine pH 6.0 (5.0 - 8.0) 08/09/25 09:35 Ur Specific [place] 1.025 (1.000-1.030) 08/09/25 09:35 Urine Protein 2+ (NEGATIVE) 08/09/25 09:35 Urine Glucose (UA) Negative (NEGATIVE) 08/09/25 09:35 Urine Ketones 2+ (NEGATIVE) 08/09/25 09:35 Urine Blood 1+ (NEGATIVE) 08/09/25 09:35 Urine Nitrite Negative (NEGATIVE) 08/09/25 09:35 Urine Bilirubin Negative (NEGATIVE) 08/09/25 09:35 Urine Urobilinogen Normal (NORMAL) 08/09/25 09:35 Ur Leukocyte Esterase Negative (NEGATIVE) 08/09/25 09:35 Urine RBC None seen /HPF (0-3) 08/09/25 09:35 Urine WBC 0-2 /HPF (0-5) 08/09/25 09:35 Ur Squamous Epith Cells Rare /HPF (NEGATIVE) 08/09/25 09:35 Ur Renal Epithelial Cell Few /HPF (NEGATIVE) 08/09/25 09:35 Amorphous Sediment Trace /HPF (NEGATIVE) 08/09/25 09:35 Urine Bacteria Trace /HPF (NEGATIVE) 08/09/25 09:35 Urine Mucus Moderate /HPF (NEGATIVE) 08/09/25 09:35 Ur Culture Indicated? No/not indicated 08/09/25 09:35 Stl C. diff Tox B Gene Positive (NEGATIVE) A 08/08/25 23:25 Stl C. diff 027-NAP1-BI Negative (NEGATIVE) 08/08/25 23:25 C. difficile Toxin A&B Negative (NEGATIVE) 08/08/25 23:25 SARS CoV-2 RNA Rapid ARABELLA Negative (NEGATIVE) 08/08/25 20:46 Plan (1) Perforation of sigmoid colon due to diverticulitis: Status: Acute (2) Abnormal EKG: Status: Acute (3) HTN (hypertension): Status: Chronic (4) Preop cardiovascular exam: Status: Acute (5) Seizure disorder: Status: Acute
[2025-08-10] MEDS: LASIX IVP NR (10:34)
[2025-08-10] MEDS: ZOFRAN INJ 4 MG VIAL IVP PRN (10:34)
[2025-08-10] MEDS: D5 1/2 NS 1,000 ML 1,000 ML IV SCH (11:02)
--- NOTE | 2025-08-10 11:19 | RAD ---
EXAMINATION: KUB HISTORY: raulito air; ANEMIA, ANGINA, ASTHMA, GERD, HTN, SEIZURES SX: CHOL,E HYST, TONSILS . COMPARISON STUDY: 08/09/2025 TECHNIQUE: 1 view of the abdomen is submitted for interpretation. FINDINGS: There is a nonobstructive bowel gas pattern. Multiple gas-filled loops of small and large bowel are noted with no distended loops or air-fluid levels. No free air. Findings suggest ileus. Right flank is not well included on the film. No abnormal calcifications in the distribution of the kidneys or ureters. Bony structures are unremarkable. IMPRESSION: Nonobstructive bowel gas pattern. Findings suggest ileus. THIS IS AN ELECTRONICALLY VERIFIED FINAL REPORT 08/10/2025 11:07 AM - Electronically signed by Brian Morales MD
[2025-08-10] MEDS: TYLENOL 325 MG TAB PO PRN (12:23)
[2025-08-10] MEDS: CONSULT PHARMACY - POTASSIUM & MAGNESIUM XX SCH ×3 (17:07→17:09)
[2025-08-10] MEDS: D5 1/2 NS + KCL 20 MEQ/L 1,000 ML IV SCH (17:08)
[2025-08-10] MEDS: VANCOMYCIN HCL 250 MG CAP PO SCH (17:09)
[2025-08-10] MEDS: TUSSIONEX PENNKINETIC SUSP PO PRN (20:18)
[2025-08-11 05:27] LABS: MEAN PLATELET VOLUME 8.5 fL (7.4-11.0); RED CELL DISTRIBUTION WIDTH 14.4 % (11.6-16.5)
[2025-08-11 05:36] LABS: COR CA(FOR HYPOALB) 9.0 mg/dL (8.5-10.1); COR NA(FOR HYPERGLY) 137 mmol/L (136-145); CREATININE 0.96 mg/dL (0.55-1.02); eGFR NON BLACK RACES > 60 (>60)
[2025-08-11] MEDS ORDERED: CONSULT PHARMACY - POTASSIUM & MAGNESIUM XX SCH (06:00)
[2025-08-11] MEDS: K-DUR TAB 20 MEQ PO SCH (08:18)
--- NOTE | 2025-08-11 10:29 | RAD ---
EXAMINATION: CHEST, 1 VIEW HISTORY: PICC LINE PLACEMENT; . COMPARISON STUDY: 08/09/2025 TECHNIQUE: One view FINDINGS: Left-sided PICC line with tip in the distal SVC. Poor inspiration with atelectasis in the lung bases. Heart size is normal for technique. No acute infiltrates. No pneumothorax. Hilar and mediastinal structures and bony structures unchanged. Elevated right hemidiaphragm. EKG leads overlie the [address] st. IMPRESSION: Left-sided PICC line with tip in distal SVC. No pneumothorax. No acute infiltrates THIS IS AN ELECTRONICALLY VERIFIED FINAL REPORT 08/11/2025 10:25 AM - Electronically signed by Brian Morales MD
--- NOTE | 2025-08-11 10:39 | RAD ---
EXAMINATION: KUB HISTORY: free air; . COMPARISON STUDY: KUB 08/10/2025 TECHNIQUE: Single supine AP view of the abdomen and pelvis FINDINGS: Mild gaseous distention of multiple loops of small bowel. Mild gaseous distention of the stomach. Surgical clips right upper abdomen. Visualized osseous structures appear intact. The inferior pelvis was not imaged. Superior abdomen was not imaged. IMPRESSION: Nonspecific mild gaseous distention of multiple loops of small bowel. Minimal amount of bowel-gas and feces within the colon. THIS IS AN ELECTRONICALLY VERIFIED FINAL REPORT 08/11/2025 10:36 AM - Electronically signed by Renee Townsend MD
--- NOTE | 2025-08-11 10:40 | DR.UPDATE ---
H&P Update Prescription drug monitoring program results: PDMP was not reviewed H&P Reviewed: Yes Any changes to H&P?: No Patient was examined?: Yes Vital Signs: Temp Pulse Pulse Resp BP BP Pulse Ox 08/11/25 10:08 21 08/11/25 09:19 08/11/25 07:58 97.4 F L 85 20 126/62 100 08/11/25 07:00 08/11/25 05:59 88 17 125/61 97 08/11/25 04:00 97.9 F 90 18 114/59 99 08/11/25 02:07 18 08/11/25 02:00 91 H 18 129/69 99 08/11/25 01:37 20 08/11/25 00:02 82 95 08/11/25 00:00 98.4 F 91 H 19 120/68 98 08/10/25 22:00 88 19 124/64 97 08/10/25 21:28 20 08/10/25 20:58 22 08/10/25 20:30 90 96 08/10/25 20:30 08/10/25 20:00 98.5 F 92 H 22 124/63 100 08/10/25 19:13 20 08/10/25 19:00 08/10/25 18:13 21 08/10/25 18:00 127/65 08/10/25 18:00 97 H 99 08/10/25 17:00 89 21 100 08/10/25 16:00 99.2 F 91 H 20 99 08/10/25 16:00 124/63 08/10/25 15:31 23 08/10/25 15:01 23 08/10/25 15:00 91 H 19 99 08/10/25 14:00 144/65 08/10/25 14:00 99 H 23 100 08/10/25 13:26 95 H 100 08/10/25 13:23 22 08/10/25 13:00 92 H 100 08/10/25 12:23 22 08/10/25 12:00 123/63 08/10/25 12:00 91 H 22 98 08/10/25 12:00 98.5 F 08/10/25 11:04 22 08/10/25 11:00 93 H 21 99 08/10/25 10:34 22 08/10/25 10:00 124/63 08/10/25 10:00 95 H 22 100 08/10/25 09:00 87 22 99 08/10/25 08:59 98.3 F 08/10/25 08:40 76 96 08/10/25 08:06 124/68 08/10/25 08:05 91 H 20 08/10/25 06:53 08/10/25 06:46 24 08/10/25 06:16 24 08/10/25 06:12 76 96 08/10/25 06:00 85 26 H 116/63 98 08/10/25 04:00 98.0 F 86 22 119/63 97 08/10/25 02:39 19 08/10/25 02:09 22 08/10/25 02:00 87 24 109/57 98 08/10/25 00:02 84 98 08/10/25 00:00 97.8 F 86 22 112/56 98 08/09/25 22:18 20 08/09/25 22:00 94 H 24 128/66 94 L 08/09/25 21:48 22 08/09/25 20:24 98.3 F 94 H 22 106/61 94 L 08/09/25 20:20 08/09/25 20:00 98.3 F 94 H 22 106/61 94 L 08/09/25 19:00 08/09/25 18:28 24 08/09/25 17:58 24 08/09/25 16:33 93 H 94 L 08/09/25 15:58 100.1 F H 94 H 25 H 101/67 95 08/09/25 14:33 22 08/09/25 14:03 24 08/09/25 12:40 98 H 98 08/09/25 12:00 99.6 F 117 H 29 H 117/57 93 L 08/09/25 10:26 117 H 24 134/68 93 L 08/09/25 10:18 24 08/09/25 08:37 08/09/25 08:00 97.3 F L 112 H 24 139/69 94 L 08/09/25 08:00 97.3 F L 118 H 24 139/69 96 08/09/25 07:00 08/09/25 07:00 97.3 F L 118 H 28 H 139/69 96 08/09/25 06:28 08/09/25 06:00 112 H 29 H 139/69 89 L 08/09/25 06:00 100.1 F H 111 H 29 H 139/69 89 L 08/09/25 05:45 113 H 92 L 08/09/25 05:44 08/09/25 05:39 18 08/09/25 05:30 115 H 29 H 08/09/25 05:30 130/67 08/09/25 05:15 113 H 28 H 08/09/25 05:00 146/77 08/09/25 05:00 119 H 26 H 08/09/25 04:45 114 H 29 H 08/09/25 04:30 116 H 08/09/25 04:30 134/74 08/09/25 04:15 133 H 08/09/25 04:00 114 H 93 L 08/09/25 04:00 135/76 08/09/25 03:45 116 H 24 93 L 08/09/25 03:30 136/76 08/09/25 03:30 119 H 23 92 L 08/09/25 03:15 116 H 27 H 92 L 08/09/25 03:00 116 H 25 H 91 L 08/09/25 03:00 134/84 08/09/25 02:45 119 H 93 L 08/09/25 02:41 138/75 08/09/25 02:41 120 H 97 08/09/25 02:30 118 H 08/09/25 02:15 119 H 26 H 08/09/25 02:00 117 H 08/09/25 01:45 122 H 08/09/25 01:30 121 H 25 H 93 L 08/09/25 01:15 121 H 92 L 08/09/25 01:05 126 H 94 L 08/09/25 00:45 121 H 25 H 92 L 08/09/25 00:30 123 H 33 H 94 L 08/09/25 00:30 161/77 08/09/25 00:15 123 H 29 H 93 L 08/09/25 00:00 125 H 29 H 94 L 08/09/25 00:00 178/84 08/08/25 23:45 125 H 95 08/08/25 23:40 20 08/08/25 23:30 174/91 08/08/25 23:30 128 H 93 L 08/08/25 23:28 129 H 93 L 08/08/25 23:28 166/90 08/08/25 23:17 135 H 23 97 08/08/25 23:10 20 08/08/25 22:45 124 H 28 H 95 08/08/25 22:30 170/77 08/08/25 22:30 121 H 39 H 95 08/08/25 22:15 119 H 29 H 08/08/25 22:00 118 H 29 H 08/08/25 22:00 153/67 08/08/25 21:45 127 H 25 H 08/08/25 21:22 195/146 08/08/25 21:15 112 H 24 94 L 08/08/25 21:00 111 H 25 H 92 L 08/08/25 21:00 168/77 08/08/25 20:45 110 H 23 94 L 08/08/25 20:30 108 H 25 H 94 L 08/08/25 20:30 166/77 08/08/25 20:18 98 08/08/25 20:00 104 H 25 H 95 08/08/25 20:00 185/86 08/08/25 19:59 104 H 24 95 08/08/25 19:05 98.3 F 111 H 18 128/72 93 L O2 Del Method O2 Flow Rate FiO2 08/11/25 10:08 08/11/25 09:19 Room Air 08/11/25 07:58 Nasal Cannula 2 08/11/25 07:00 Nasal Cannula 2 08/11/25 05:59 Nasal Cannula 2 08/11/25 04:00 Nasal Cannula 2 08/11/25 02:07 08/11/25 02:00 Nasal Cannula 2 08/11/25 01:37 08/11/25 00:02 08/11/25 00:00 Nasal Cannula 2 08/10/25 22:00 Nasal Cannula 2 08/10/25 21:28 08/10/25 20:58 08/10/25 20:30 08/10/25 20:30 Nasal Cannula 2 08/10/25 20:00 Nasal Cannula 2 08/10/25 19:13 08/10/25 19:00 Nasal Cannula 2 08/10/25 18:13 08/10/25 18:00 08/10/25 18:00 08/10/25 17:00 08/10/25 16:00 08/10/25 16:00 08/10/25 15:31 08/10/25 15:01 08/10/25 15:00 08/10/25 14:00 08/10/25 14:00 08/10/25 13:26 08/10/25 13:23 08/10/25 13:00 08/10/25 12:23 08/10/25 12:00 08/10/25 12:00 08/10/25 12:00 08/10/25 11:04 08/10/25 11:00 08/10/25 10:34 08/10/25 10:00 08/10/25 10:00 08/10/25 09:00 08/10/25 08:59 08/10/25 08:40 08/10/25 08:06 08/10/25 08:05 08/10/25 06:53 Nasal Cannula 2 08/10/25 06:46 08/10/25 06:16 08/10/25 06:12 08/10/25 06:00 08/10/25 04:00 08/10/25 02:39 08/10/25 02:09 08/10/25 02:00 08/10/25 00:02 08/10/25 00:00 08/09/25 22:18 08/09/25 22:00 08/09/25 21:48 08/09/25 20:24 Nasal Cannula 2 08/09/25 20:20 Nasal Cannula 2 28 08/09/25 20:00 08/09/25 19:00 Nasal Cannula 2 08/09/25 18:28 08/09/25 17:58 08/09/25 16:33 08/09/25 15:58 Nasal Cannula 08/09/25 14:33 08/09/25 14:03 08/09/25 12:40 08/09/25 12:00 Nasal Cannula 08/09/25 10:26 Nasal Cannula 08/09/25 10:18 08/09/25 08:37 Nasal Cannula 2 28 08/09/25 08:00 08/09/25 08:00 Nasal Cannula 08/09/25 07:00 Nasal Cannula 2 08/09/25 07:00 Nasal Cannula 08/09/25 06:28 Nasal Cannula 2 28 08/09/25 06:00 08/09/25 06:00 Room Air 08/09/25 05:45 Nasal Cannula 3 08/09/25 05:44 Nasal Cannula 2 08/09/25 05:39 08/09/25 05:30 08/09/25 05:30 08/09/25 05:15 08/09/25 05:00 08/09/25 05:00 08/09/25 04:45 08/09/25 04:30 08/09/25 04:30 08/09/25 04:15 08/09/25 04:00 08/09/25 04:00 08/09/25 03:45 08/09/25 03:30 08/09/25 03:30 08/09/25 03:15 08/09/25 03:00 08/09/25 03:00 08/09/25 02:45 08/09/25 02:41 08/09/25 02:41 08/09/25 02:30 08/09/25 02:15 08/09/25 02:00 08/09/25 01:45 08/09/25 01:30 Room Air 08/09/25 01:15 Room Air 08/09/25 01:05 08/09/25 00:45 08/09/25 00:30 08/09/25 00:30 08/09/25 00:15 08/09/25 00:00 08/09/25 00:00 08/08/25 23:45 08/08/25 23:40 08/08/25 23:30 08/08/25 23:30 08/08/25 23:28 08/08/25 23:28 08/08/25 23:17 08/08/25 23:10 08/08/25 22:45 08/08/25 22:30 08/08/25 22:30 08/08/25 22:15 08/08/25 22:00 08/08/25 22:00 08/08/25 21:45 08/08/25 21:22 08/08/25 21:15 08/08/25 21:00 08/08/25 21:00 08/08/25 20:45 08/08/25 20:30 08/08/25 20:30 08/08/25 20:18 08/08/25 20:00 08/08/25 20:00 08/08/25 19:59 08/08/25 19:05 Room Air Procedures (ALL) - Central Line Placement PCM.CLCO: written consent Time out performed: Yes Patient placed pm monitor/pulse ox: Yes MD prep: mask, gown, gloves, other Centrial line prep: chlorhexidine scrub, sterile drapes applied Local anesthsia used: lidocane 1% Ultrasound used for placement: Yes (left basilic v id'd and cannulation vis) Central line lumen ininserted: double (5.5fr arrowgard, trimmed to 50cm, 7cm exposed) Post procedure: good blood return, all ports aspirated, flushed,capped, sterile dressing applied Post procedure xray: tip oc catheter in good position (appears svc, radiology report pending), no pneumothorax seen Patient tolerated procedure: Yes Complications: none
[2025-08-11] MEDS: DRUG FILTER EXTENSION SET ONE (11:15)
[2025-08-11] MEDS: CLINIMIX 5 %/20 % 1,000 ML with MVI INJ (ADULT) 10 ML, TPN ELECTROLYTES 20 ML, TRACE EL... IV SCH (12:26)
--- NOTE | 2025-08-11 12:34 | DR.PROGNOT ---
HOSPITAL PROGRESS NOTE Progress Note for Day of: Progress Note Date: 08/11/25 Chief Complaint Chief Complaint: Patient is stable and seems to be that the pain is somewhat less, she has liquidy bowel movement which was tested for C. difficile. Mild productive cough. No nausea or vomiting White count is 10.3, hemoglobin 13.2, normal BUN/creatinine and electrolytes. Stable vital signs and afebrile. Abdomen is soft with diffuse tenderness and mild no rebound tenderness left lower quadrant. No calf tenderness.. Past Medical Family Social History Past Med/Fam/Surg Hx: No changes since H&P Allergies: Allergies No Known Drug Allergies Allergy (Verified 08/10/25 09:06) Vital Signs Vital Signs: Vital Signs Temperature 97.4 F Pulse Rate 85 Pulse Rate 88 Respiratory Rate 20 Respiratory Rate 21 Respiratory Rate 20 Respiratory Rate 17 Blood Pressure 126/62 Blood Pressure 125/61 O2 Sat by Pulse Oximetry 100 O2 Sat by Pulse Oximetry 97 Physical Exam Oriented: Normal Eyes: Normal Ear: Normal Nose: Normal Throat: Normal Respiratory: Wheezes (faint b/l end expiratory) Cardiovascular: Normal : Normal GI:Auscultation: Decreased GI:Palpation: Normal GI: Tenderness: Diffuse Skin: Normal Musculoskeletal: Normal Speech Pattern: Clear and Appropriate Laboratory and Diagnostics 08/11/25 04:53 08/11/25 04:53 Labs: 08/09/25 16:48 Blood Blood Culture - Preliminary 08/09/25 15:58 Blood Blood Culture - Preliminary Laboratory WBC 10.4 X10^3/uL (3.6-10.0) H 08/11/25 04:53 RBC 4.69 X10^6/uL (3.5-5.4) 08/11/25 04:53 Hgb 13.2 g/dL (12.0-16.0) 08/11/25 04:53 Hct 39.3 % (36.0-47.0) 08/11/25 04:53 MCV 83.9 fL (80.0-100.0) 08/11/25 04:53 MCH 28.2 pg (27.0-34.0) 08/11/25 04:53 MCHC 33.5 g/dL (33.0-35.0) 08/11/25 04:53 RDW 14.4 % (11.6-16.5) 08/11/25 04:53 Plt Count 184 X10^3/uL (150.0-450.0) 08/11/25 04:53 MPV 8.5 fL (7.4-11.0) 08/11/25 04:53 Neut % (Auto) 81.8 % (42.0-75.0) H 08/11/25 04:53 Lymph % (Auto) 10.7 % (21.0-51.0) L 08/11/25 04:53 Ness % (Auto) 7.0 % (0.0-13.0) 08/11/25 04:53 Eos % (Auto) 0.3 % (0.9-2.9) L 08/11/25 04:53 Baso % (Auto) 0.2 % (0.2-1.0) 08/11/25 04:53 Neut # (Auto) 8.5 x10^3/uL (2.2-4.8) H 08/11/25 04:53 Lymph # (Auto) 1.1 X10^3/uL (1.3-2.9) L 08/11/25 04:53 Ness # (Auto) 0.7 x10^3/uL (0.3-0.8) 08/11/25 04:53 Eos # (Auto) 0.0 x10^3/uL (0.0-0.2) 08/11/25 04:53 Baso # (Auto) 0.0 X10^3/uL (0.0-0.1) 08/11/25 04:53 Absolute Nucleated RBC 0.1 /100WBC 08/11/25 04:53 PT 16.1 SECONDS (11.8-14.3) 08/09/25 09:28 INR Target Range - 08/09/25 09:28 INR 1.28 (0.8-1.3) 08/09/25 09:28 Sodium 137 mmol/L (136-145) 08/11/25 04:53 Corrected Sodium 137 mmol/L (136-145) 08/11/25 04:53 Potassium 3.7 mmol/L (3.5-5.1) 08/11/25 04:53 Chloride 102 mmol/L (98-107) 08/11/25 04:53 Carbon Dioxide 27.7 mmol/L (21-32) 08/11/25 04:53 BUN 13 mg/dL (7-18) 08/11/25 04:53 Creatinine 0.96 mg/dL (0.55-1.02) 08/11/25 04:53 Est GFR (MDRD) Af Amer > 60 (>60) 08/11/25 04:53 Est GFR (MDRD) Non-Af > 60 (>60) 08/11/25 04:53 Glucose 116 mg/dL (65-99) H 08/11/25 04:53 Lactic Acid 1.6 mmol/L (0.4-2.0) 08/09/25 15:58 Calcium 7.4 mg/dL (8.5-10.1) L 08/11/25 04:53 Corrected Calcium 9.0 mg/dL (8.5-10.1) 08/11/25 04:53 Magnesium 2.5 mg/dL (2.0-2.9) 08/11/25 04:53 Total Bilirubin 0.70 mg/dL (0.2-1.0) 08/11/25 04:53 AST 8 Units/L (15-37) L 08/11/25 04:53 ALT 16 Units/L (12-78) 08/11/25 04:53 Alkaline Phosphatase 43 Units/L (46-116) L 08/11/25 04:53 Total Protein 5.6 g/dL (6.4-8.2) L 08/11/25 04:53 Albumin 2.0 g/dL (3.4-5.0) L 08/11/25 04:53 Globulin 3.6 g/dL (2.5-4.5) 08/11/25 04:53 Albumin/Globulin Ratio 0.6 Ratio (1.1-2.1) L 08/11/25 04:53 Amylase 39 Units/L (25-115) 08/08/25 19:33 Lipase 19 Units/L (16-77) 08/08/25 19:33 Specimen Type Catherized urine 08/09/25 09:35 Urine Color Dark yellow (YELLOW) 08/09/25 09:35 Urine Appearance Clear (CLEAR) 08/09/25 09:35 Urine pH 6.0 (5.0 - 8.0) 08/09/25 09:35 Ur Specific [place] 1.025 (1.000-1.030) 08/09/25 09:35 Urine Protein 2+ (NEGATIVE) 08/09/25 09:35 Urine Glucose (UA) Negative (NEGATIVE) 08/09/25 09:35 Urine Ketones 2+ (NEGATIVE) 08/09/25 09:35 Urine Blood 1+ (NEGATIVE) 08/09/25 09:35 Urine Nitrite Negative (NEGATIVE) 08/09/25 09:35 Urine Bilirubin Negative (NEGATIVE) 08/09/25 09:35 Urine Urobilinogen Normal (NORMAL) 08/09/25 09:35 Ur Leukocyte Esterase Negative (NEGATIVE) 08/09/25 09:35 Urine RBC None seen /HPF (0-3) 08/09/25 09:35 Urine WBC 0-2 /HPF (0-5) 08/09/25 09:35 Ur Squamous Epith Cells Rare /HPF (NEGATIVE) 08/09/25 09:35 Ur Renal Epithelial Cell Few /HPF (NEGATIVE) 08/09/25 09:35 Amorphous Sediment Trace /HPF (NEGATIVE) 08/09/25 09:35 Urine Bacteria Trace /HPF (NEGATIVE) 08/09/25 09:35 Urine Mucus Moderate /HPF (NEGATIVE) 08/09/25 09:35 Ur Culture Indicated? No/not indicated 08/09/25 09:35 Stl C. diff Tox B Gene Positive (NEGATIVE) A 08/08/25 23:25 Stl C. diff 027-NAP1-BI Negative (NEGATIVE) 08/08/25 23:25 C. difficile Toxin A&B Negative (NEGATIVE) 08/08/25 23:25 SARS CoV-2 RNA Rapid ARABELLA Negative (NEGATIVE) 08/08/25 20:46 Assessment and Plan 1: Acute diverticulitis with sealed perforation. Patient is on IV Zosyn and Flagyl, clear liquid and TPN Will observe closely for possible laparotomy. The findings and treatment plan were discussed in details with the patient and her family. Hopefully we can continue IV antibiotics and avoid surgery which end up with temporary colostomy Problem Patient Problems: Patient Problems C. difficile colitis (Acute) A04.72 Perforation of sigmoid colon due to diverticulitis (Acute) K57.20
[2025-08-11] MEDS: ZOFRAN INJ 4 MG VIAL IVP ONE (13:37)
[2025-08-11] MEDS ORDERED: NovoLIN R (or HumuLIN R) SUBCUT PRN (20:37)
[2025-08-11] MEDS: ZOFRAN INJ 4 MG VIAL IVP PRN (20:43)
[2025-08-11 20:57] LABS: PHOSPHORUS 2.2 mg/dL (2.6-4.7)
[2025-08-11] MEDS: NORCO 5/325 MG TAB PO PRN (21:44)
[2025-08-12 05:34] LABS: MEAN PLATELET VOLUME 8.9 fL (7.4-11.0); RED CELL DISTRIBUTION WIDTH 14.3 % (11.6-16.5)
[2025-08-12 05:50] LABS: COR CA(FOR HYPOALB) 9.4 mg/dL (8.5-10.1); COR NA(FOR HYPERGLY) 140 mmol/L (136-145); CREATININE 0.71 mg/dL (0.55-1.02); eGFR NON BLACK RACES > 60 (>60)
[2025-08-12] MEDS ORDERED: CONSULT PHARMACY - POTASSIUM & MAGNESIUM XX SCH (06:00)
[2025-08-12] MEDS: K-DUR TAB 20 MEQ PO SCH (08:25)
[2025-08-12] MEDS: CLINIMIX 5 %/20 % 1,000 ML with MVI INJ (ADULT) 10 ML, TPN ELECTROLYTES 20 ML, TRACE EL... IV SCH (08:39)
[2025-08-12] MEDS: DRUG FILTER EXTENSION SET ONE (08:45)
--- NOTE | 2025-08-12 09:14 | PCM.PROG ---
Progress Note Progress Note for Day of Date of Exam: 08/11/25 Subjective Subjective: Patient is a 65-year-old female admitted for acute diverticulitis with now sealed perforation. General Surgery is primary. Medicine consulted for medical management. This morning, she is resting in bed. No acute events overnight. She does report feeling better compared to yesterday. Her breathing is back to normal. Labs: WBC 10.4, hemoglobin 13.2, platelets 184, sodium 137, potassium 3.7, creatinine 0.96, glucose 116. Blood culture NGTD. Continue on IV Zosyn and Flagyl. She is on n.p.o. except for her medications. At this time surgery is monitoring. Continue IV fluids to D5 1/2 NS@75ml/h. Surgery to start on TPN. Replete electrolytes per protocol. She is receiving bronchodilators. Cardiology was consulted, acceptable cv risk if she requires surgery. Otherwise continue with current treatment course. Continue closely monitor and follow-up labs/imaging. Time spent for clinical assessment, reviewing labs/imaging, physical exam, decision making and documentation greater than 45 mins. Past Medical Family Social History Past Med/Fam/Surg Hx: No changes since H&P Allergies: Allergies No Known Drug Allergies Allergy (Verified 08/10/25 09:06) Review of Systems ROS changes noted: see HPI Vital Signs and I&O's Vital Signs: Vital Signs Temperature 98.8 F Temperature 98.1 F Pulse Rate 85 Pulse Rate 92 Pulse Rate 82 Pulse Rate 84 Pulse Rate 87 Respiratory Rate 15 Respiratory Rate 15 Respiratory Rate 17 Respiratory Rate 18 Respiratory Rate 18 Respiratory Rate 23 Respiratory Rate 18 Respiratory Rate 20 Respiratory Rate 18 Blood Pressure 166/79 Blood Pressure 164/77 Blood Pressure 156/80 Blood Pressure 173/87 Blood Pressure 154/81 Blood Pressure 142/72 O2 Sat by Pulse Oximetry 98 O2 Sat by Pulse Oximetry 99 O2 Sat by Pulse Oximetry 98 O2 Sat by Pulse Oximetry 98 O2 Sat by Pulse Oximetry 97 Intake and Output: Intake & Output 08/09/25 08/10/25 08/11/25 08/12/25 23:59 23:59 23:59 23:59 Intake Total 2659 / 2659 3430 / 3430 2170 / 2170 555 / 555 Output Total 1349 / 1384 1538 / 1538 1250 / 1250 200 / 200 Balance 1310 / 1275 1892 / 1892 920 / 920 355 / 355 Physical Exam Oriented: Normal Eyes: Normal Ear: Normal Nose: Normal Throat: Normal Respiratory: Normal Cardiovascular: Normal : Normal Auscultation: Bowel Sounds: Decreased Tenderness: Diffuse Skin: Normal Musculoskeletal: Normal Speech Pattern: Clear and Appropriate Laboratory and Diagnostics 08/12/25 04:37 08/12/25 04:37 Labs: 08/09/25 16:48 Blood Blood Culture - Preliminary 08/09/25 15:58 Blood Blood Culture - Preliminary Laboratory WBC 8.2 X10^3/uL (3.6-10.0) 08/12/25 04:37 RBC 4.64 X10^6/uL (3.5-5.4) 08/12/25 04:37 Hgb 13.0 g/dL (12.0-16.0) 08/12/25 04:37 Hct 38.9 % (36.0-47.0) 08/12/25 04:37 MCV 83.9 fL (80.0-100.0) 08/12/25 04:37 MCH 28.1 pg (27.0-34.0) 08/12/25 04:37 MCHC 33.5 g/dL (33.0-35.0) 08/12/25 04:37 RDW 14.3 % (11.6-16.5) 08/12/25 04:37 Plt Count 195 X10^3/uL (150.0-450.0) 08/12/25 04:37 MPV 8.9 fL (7.4-11.0) 08/12/25 04:37 Neut % (Auto) 76.6 % (42.0-75.0) H 08/12/25 04:37 Lymph % (Auto) 14.4 % (21.0-51.0) L 08/12/25 04:37 [place] % (Auto) 8.1 % (0.0-13.0) 08/12/25 04:37 Eos % (Auto) 0.6 % (0.9-2.9) L 08/12/25 04:37 Baso % (Auto) 0.3 % (0.2-1.0) 08/12/25 04:37 Neut # (Auto) 6.3 x10^3/uL (2.2-4.8) H 08/12/25 04:37 Lymph # (Auto) 1.2 X10^3/uL (1.3-2.9) L 08/12/25 04:37 [place] # (Auto) 0.7 x10^3/uL (0.3-0.8) 08/12/25 04:37 Eos # (Auto) 0.0 x10^3/uL (0.0-0.2) 08/12/25 04:37 Baso # (Auto) 0.0 X10^3/uL (0.0-0.1) 08/12/25 04:37 Absolute Nucleated RBC 0.1 /100WBC 08/12/25 04:37 PT 16.1 SECONDS (11.8-14.3) 08/09/25 09:28 INR Target Range - 08/09/25 09:28 INR 1.28 (0.8-1.3) 08/09/25 09:28 Sodium 139 mmol/L (136-145) 08/12/25 04:37 Corrected Sodium 140 mmol/L (136-145) 08/12/25 04:37 Potassium 3.4 mmol/L (3.5-5.1) L 08/12/25 04:37 Chloride 103 mmol/L (98-107) 08/12/25 04:37 Carbon Dioxide 30.5 mmol/L (21-32) 08/12/25 04:37 BUN 14 mg/dL (7-18) 08/12/25 04:37 Creatinine 0.71 mg/dL (0.55-1.02) 08/12/25 04:37 Est GFR (MDRD) Af Amer > 60 (>60) 08/12/25 04:37 Est GFR (MDRD) Non-Af > 60 (>60) 08/12/25 04:37 Glucose 121 mg/dL (65-99) H 08/12/25 04:37 POC Glucose (mg/dL) 121 mg/dL (65-99) H 08/12/25 08:51 Lactic Acid 1.6 mmol/L (0.4-2.0) 08/09/25 15:58 Calcium 7.7 mg/dL (8.5-10.1) L 08/12/25 04:37 Corrected Calcium 9.4 mg/dL (8.5-10.1) 08/12/25 04:37 Phosphorus 2.2 mg/dL (2.6-4.7) L 08/11/25 04:53 Magnesium 2.0 mg/dL (2.0-2.9) 08/12/25 04:37 Total Bilirubin 0.40 mg/dL (0.2-1.0) 08/12/25 04:37 AST 9 Units/L (15-37) L 08/12/25 04:37 ALT 9 Units/L (12-78) L 08/12/25 04:37 Alkaline Phosphatase 43 Units/L (46-116) L 08/12/25 04:37 Total Protein 5.2 g/dL (6.4-8.2) L 08/12/25 04:37 Albumin 1.9 g/dL (3.4-5.0) L 08/12/25 04:37 Globulin 3.3 g/dL (2.5-4.5) 08/12/25 04:37 Albumin/Globulin Ratio 0.6 Ratio (1.1-2.1) L 08/12/25 04:37 Prealbumin 10.9 mg/dL (18-35.7) L 08/12/25 04:37 Triglycerides 73 mg/dL (0-150) 08/11/25 04:53 Amylase 39 Units/L (25-115) 08/08/25 19:33 Lipase 19 Units/L (16-77) 08/08/25 19:33 Specimen Type Catherized urine 08/09/25 09:35 Urine Color Dark yellow (YELLOW) 08/09/25 09:35 Urine Appearance Clear (CLEAR) 08/09/25 09:35 Urine pH 6.0 (5.0 - 8.0) 08/09/25 09:35 Ur Specific [place] 1.025 (1.000-1.030) 08/09/25 09:35 Urine Protein 2+ (NEGATIVE) 08/09/25 09:35 Urine Glucose (UA) Negative (NEGATIVE) 08/09/25 09:35 Urine Ketones 2+ (NEGATIVE) 08/09/25 09:35 Urine Blood 1+ (NEGATIVE) 08/09/25 09:35 Urine Nitrite Negative (NEGATIVE) 08/09/25 09:35 Urine Bilirubin Negative (NEGATIVE) 08/09/25 09:35 Urine Urobilinogen Normal (NORMAL) 08/09/25 09:35 Ur Leukocyte Esterase Negative (NEGATIVE) 08/09/25 09:35 Urine RBC None seen /HPF (0-3) 08/09/25 09:35 Urine WBC 0-2 /HPF (0-5) 08/09/25 09:35 Ur Squamous Epith Cells Rare /HPF (NEGATIVE) 08/09/25 09:35 Ur Renal Epithelial Cell Few /HPF (NEGATIVE) 08/09/25 09:35 Amorphous Sediment Trace /HPF (NEGATIVE) 08/09/25 09:35 Urine Bacteria Trace /HPF (NEGATIVE) 08/09/25 09:35 Urine Mucus Moderate /HPF (NEGATIVE) 08/09/25 09:35 Ur Culture Indicated? No/not indicated 08/09/25 09:35 Stl C. diff Tox B Gene Negative (NEGATIVE) 08/12/25 05:16 Stl C. diff 027-NAP1-BI Presumptive negative (NEGATIVE) 08/12/25 05:16 C. difficile Toxin A&B Negative (NEGATIVE) 08/08/25 23:25 SARS CoV-2 RNA Rapid ARABELLA Negative (NEGATIVE) 08/08/25 20:46 Plan (1) Perforation of sigmoid colon due to diverticulitis: Status: Acute (2) Abnormal EKG: Status: Acute (3) HTN (hypertension): Status: Chronic (4) Preop cardiovascular exam: Status: Acute (5) Seizure disorder: Status: Acute
[2025-08-12 09:23] VITALS: BMI 39.4
--- NOTE | 2025-08-12 11:06 | DR.PROGNOT ---
HOSPITAL PROGRESS NOTE Progress Note for Day of: Progress Note Date: 08/12/25 Chief Complaint Chief Complaint: Patient was having abdominal pain last night, today she is feeling better, no significant pain, no nausea or vomiting, had several loose bowel movements, C. difficile was negative. WBC 8.2, hemoglobin 13, potassium 3.4, BUN/creatinine are normal, albumin is 2. Patient is afebrile, abdomen is soft with moderate distention and hypoactive bowel sounds. Past Medical Family Social History Past Med/Fam/Surg Hx: No changes since H&P Allergies: Allergies No Known Drug Allergies Allergy (Verified 08/10/25 09:06) Review Of Systems Changes in ROS: see HPI Vital Signs Vital Signs: Vital Signs Temperature 98.8 F Temperature 98.1 F Pulse Rate 82 Pulse Rate 85 Pulse Rate 92 Pulse Rate 82 Pulse Rate 84 Respiratory Rate 24 Respiratory Rate 24 Respiratory Rate 15 Respiratory Rate 15 Respiratory Rate 17 Respiratory Rate 18 Respiratory Rate 18 Respiratory Rate 23 Blood Pressure 153/73 Blood Pressure 166/79 Blood Pressure 164/77 Blood Pressure 156/80 Blood Pressure 173/87 Blood Pressure 154/81 O2 Sat by Pulse Oximetry 100 O2 Sat by Pulse Oximetry 98 O2 Sat by Pulse Oximetry 99 O2 Sat by Pulse Oximetry 98 O2 Sat by Pulse Oximetry 98 Physical Exam Oriented: Normal Eyes: Normal Ear: Normal Nose: Normal Throat: Normal Respiratory: Normal Cardiovascular: Normal : Normal GI:Auscultation: Decreased GI:Palpation: Normal GI: Tenderness: Diffuse Skin: Normal Musculoskeletal: Normal Speech Pattern: Clear and Appropriate Laboratory and Diagnostics 08/12/25 04:37 08/12/25 04:37 Labs: 08/09/25 16:48 Blood Blood Culture - Preliminary 08/09/25 15:58 Blood Blood Culture - Preliminary Laboratory WBC 8.2 X10^3/uL (3.6-10.0) 08/12/25 04:37 RBC 4.64 X10^6/uL (3.5-5.4) 08/12/25 04:37 Hgb 13.0 g/dL (12.0-16.0) 08/12/25 04:37 Hct 38.9 % (36.0-47.0) 08/12/25 04:37 MCV 83.9 fL (80.0-100.0) 08/12/25 04:37 MCH 28.1 pg (27.0-34.0) 08/12/25 04:37 MCHC 33.5 g/dL (33.0-35.0) 08/12/25 04:37 RDW 14.3 % (11.6-16.5) 08/12/25 04:37 Plt Count 195 X10^3/uL (150.0-450.0) 08/12/25 04:37 MPV 8.9 fL (7.4-11.0) 08/12/25 04:37 Neut % (Auto) 76.6 % (42.0-75.0) H 08/12/25 04:37 Lymph % (Auto) 14.4 % (21.0-51.0) L 08/12/25 04:37 [place] % (Auto) 8.1 % (0.0-13.0) 08/12/25 04:37 Eos % (Auto) 0.6 % (0.9-2.9) L 08/12/25 04:37 Baso % (Auto) 0.3 % (0.2-1.0) 08/12/25 04:37 Neut # (Auto) 6.3 x10^3/uL (2.2-4.8) H 08/12/25 04:37 Lymph # (Auto) 1.2 X10^3/uL (1.3-2.9) L 08/12/25 04:37 [place] # (Auto) 0.7 x10^3/uL (0.3-0.8) 08/12/25 04:37 Eos # (Auto) 0.0 x10^3/uL (0.0-0.2) 08/12/25 04:37 Baso # (Auto) 0.0 X10^3/uL (0.0-0.1) 08/12/25 04:37 Absolute Nucleated RBC 0.1 /100WBC 08/12/25 04:37 PT 16.1 SECONDS (11.8-14.3) 08/09/25 09:28 INR Target Range - 08/09/25 09:28 INR 1.28 (0.8-1.3) 08/09/25 09:28 Sodium 139 mmol/L (136-145) 08/12/25 04:37 Corrected Sodium 140 mmol/L (136-145) 08/12/25 04:37 Potassium 3.4 mmol/L (3.5-5.1) L 08/12/25 04:37 Chloride 103 mmol/L (98-107) 08/12/25 04:37 Carbon Dioxide 30.5 mmol/L (21-32) 08/12/25 04:37 BUN 14 mg/dL (7-18) 08/12/25 04:37 Creatinine 0.71 mg/dL (0.55-1.02) 08/12/25 04:37 Est GFR (MDRD) Af Amer > 60 (>60) 08/12/25 04:37 Est GFR (MDRD) Non-Af > 60 (>60) 08/12/25 04:37 Glucose 121 mg/dL (65-99) H 08/12/25 04:37 POC Glucose (mg/dL) 121 mg/dL (65-99) H 08/12/25 08:51 Lactic Acid 1.6 mmol/L (0.4-2.0) 08/09/25 15:58 Calcium 7.7 mg/dL (8.5-10.1) L 08/12/25 04:37 Corrected Calcium 9.4 mg/dL (8.5-10.1) 08/12/25 04:37 Phosphorus 2.2 mg/dL (2.6-4.7) L 08/11/25 04:53 Magnesium 2.0 mg/dL (2.0-2.9) 08/12/25 04:37 Total Bilirubin 0.40 mg/dL (0.2-1.0) 08/12/25 04:37 AST 9 Units/L (15-37) L 08/12/25 04:37 ALT 9 Units/L (12-78) L 08/12/25 04:37 Alkaline Phosphatase 43 Units/L (46-116) L 08/12/25 04:37 Total Protein 5.2 g/dL (6.4-8.2) L 08/12/25 04:37 Albumin 2.0 g/dL (3.4-5.0) L 08/12/25 09:51 Globulin 3.3 g/dL (2.5-4.5) 08/12/25 04:37 Albumin/Globulin Ratio 0.6 Ratio (1.1-2.1) L 08/12/25 04:37 Prealbumin 10.9 mg/dL (18-35.7) L 08/12/25 04:37 Triglycerides 73 mg/dL (0-150) 08/11/25 04:53 Amylase 39 Units/L (25-115) 08/08/25 19:33 Lipase 19 Units/L (16-77) 08/08/25 19:33 Specimen Type Catherized urine 08/09/25 09:35 Urine Color Dark yellow (YELLOW) 08/09/25 09:35 Urine Appearance Clear (CLEAR) 08/09/25 09:35 Urine pH 6.0 (5.0 - 8.0) 08/09/25 09:35 Ur Specific [place] 1.025 (1.000-1.030) 08/09/25 09:35 Urine Protein 2+ (NEGATIVE) 08/09/25 09:35 Urine Glucose (UA) Negative (NEGATIVE) 08/09/25 09:35 Urine Ketones 2+ (NEGATIVE) 08/09/25 09:35 Urine Blood 1+ (NEGATIVE) 08/09/25 09:35 Urine Nitrite Negative (NEGATIVE) 08/09/25 09:35 Urine Bilirubin Negative (NEGATIVE) 08/09/25 09:35 Urine Urobilinogen Normal (NORMAL) 08/09/25 09:35 Ur Leukocyte Esterase Negative (NEGATIVE) 08/09/25 09:35 Urine RBC None seen /HPF (0-3) 08/09/25 09:35 Urine WBC 0-2 /HPF (0-5) 08/09/25 09:35 Ur Squamous Epith Cells Rare /HPF (NEGATIVE) 08/09/25 09:35 Ur Renal Epithelial Cell Few /HPF (NEGATIVE) 08/09/25 09:35 Amorphous Sediment Trace /HPF (NEGATIVE) 08/09/25 09:35 Urine Bacteria Trace /HPF (NEGATIVE) 08/09/25 09:35 Urine Mucus Moderate /HPF (NEGATIVE) 08/09/25 09:35 Ur Culture Indicated? No/not indicated 08/09/25 09:35 Stl C. diff Tox B Gene Negative (NEGATIVE) 08/12/25 05:16 Stl C. diff 027-NAP1-BI Presumptive negative (NEGATIVE) 08/12/25 05:16 C. difficile Toxin A&B Negative (NEGATIVE) 08/08/25 23:25 SARS CoV-2 RNA Rapid ARABELLA Negative (NEGATIVE) 08/08/25 20:46 Assessment and Plan 1: Acute diverticulitis with sealed perforation. Patient is on IV Zosyn and Flagyl, clear liquid and TPN The findings and treatment plan was discussed in details with the patient and her family. to continue IV antibiotics , DC Aviles catheter. To obtain abdominal pelvic CT scan with contrast and compare it with the previous one. Problem Patient Problems: Patient Problems C. difficile colitis (Acute) A04.72 Perforation of sigmoid colon due to diverticulitis (Acute) K57.20
[2025-08-12] MEDS: ALBUMIN HUMAN 25%- 100 ML 100 ML IV SCH (11:10)
[2025-08-12] MEDS: OMNIPAQUE 350 mg/mL 100 mL BTL 100 ML ONE (11:38)
[2025-08-12] MEDS: COZAAR PO ONE (11:44)
[2025-08-12] MEDS: OMNIPAQUE 350 mg/mL 100 mL BTL IVP NR (11:59)
--- NOTE | 2025-08-12 13:06 | CT ---
EXAM: CTA of the abdomen and pelvis HISTORY: sigmoid perforation; COMPARISON: CT of the abdomen and pelvis without contrast August 08, 2025 TECHNIQUE: CTA of the abdomen and pelvis with intravenous contrast. Three-dimensional reconstructions and/or MIPS images were produced and reviewed. FINDINGS: Airspace infiltrates are present in the lung bases suggesting a combination of atelectasis and developing pneumonia representing a worsened appearance from the comparison study. The abdominal aorta tapers normally. The celiac and SMA are patent. The bilateral renal arteries are patent. RON is patent. There is good flow in the bilateral common iliac arteries. Clips are noted from prior cholecystectomy. No liver mass. Normal adrenal glands. No renal stones. The kidneys are not obstructed. The ureters taper normally. Normal spleen. Pancreas is noninflamed. The stomach is not obstructed. There is abnormal free fluid in the low pelvis representing a change from the comparison study. There is inflammation associated with the distal descending colon consistent with diverticulitis and acute colitis which appears worsened from the comparison exam. There are developing phlegmonous collections associated with the inflamed descending colon with an adjacent collection spanning about 4 cm X 1.3 cm with a droplet of extraluminal gas. There is a 2nd adjacent pericolonic collection with some rim enhancement spanning approximately 5.5 X 2.8 cm. These collections are new. Extensive diverticulosis of the colon. There are abnormally distended small bowel loops present with air-fluid levels marking a change in appearance from the comparison study and could represent mechanical/reactive ileus or developing small bowel obstruction. Aviles catheter is noted in the urinary bladder. Degenerative disc and endplate changes are noted in the thoracolumbar spine multilevel and advanced. Severe left neural foraminal encroachment L5-S1 secondary to disc osteophyte complex. No suspicious bony lesions. IMPRESSION: Worsening appearance of descending colon diverticulitis and acute colitis now with small adjacent inflammatory collections/developing pericolonic abscesses. One of these collections contains a droplet of extraluminal gas. Consider surgical consultation. Small-bowel ileus versus developing small bowel obstruction. Bibasilar atelectasis and/or pneumonia, worsening. All CT scans at this facility use dose modulation, iterative reconstruction, and/or weight based dosing when appropriate to reduce radiation dose to as low as reasonably achievable. THIS IS AN ELECTRONICALLY VERIFIED FINAL REPORT 08/12/2025 1:03 PM - Electronically signed by Issa Rollins MD
[2025-08-12] MEDS: DUONEB 0.5 MG/3 MG (3 mL) NEB SCH (16:20)
[2025-08-12] MEDS: PEPCID TAB 20 MG PO SCH (19:20)
[2025-08-12] MEDS: PULMICORT NEB TX 0.5 MG NEB SCH (20:06)
[2025-08-12] MEDS ORDERED: PEPCID TAB 20 MG PO SCH (21:00)
[2025-08-12] MEDS: NORCO 5/325 MG TAB PO PRN (21:09)
[2025-08-12] MEDS: COZAAR PO SCH (21:10)
[2025-08-13 05:00] LABS: MEAN PLATELET VOLUME 8.2 fL (7.4-11.0); RED CELL DISTRIBUTION WIDTH 14.2 % (11.6-16.5)
[2025-08-13 05:10] LABS: COR CA(FOR HYPOALB) 9.1 mg/dL (8.5-10.1); COR NA(FOR HYPERGLY) 140 mmol/L (136-145); CREATININE 0.65 mg/dL (0.55-1.02); eGFR NON BLACK RACES > 60 (>60)
--- NOTE | 2025-08-13 08:27 | DR.PROGNOT ---
HOSPITAL PROGRESS NOTE Progress Note for Day of: Progress Note Date: 08/11/25 Chief Complaint Chief Complaint: Had a good night sleep. Passing flatus and small bowel movements. Abdominal pelvic CT scan continues to show acute diverticulitis and pericolic inflammation with a phlegmon formation, associated ileus of the small bowel. White count is 7.3 with a slight shift to the left, hemoglobin 12.3, platelet count 211, BUN/creatinine normal 14 and 0.65, glucose 130, albumin 2.2. Patient is afebrile and stable vital signs. Abdomen is full with diffuse tenderness more towards the left lower quadrant, bowel sounds are positive. Past Medical Family Social History Past Med/Fam/Surg Hx: No changes since H&P Allergies: Allergies No Known Drug Allergies Allergy (Verified 08/10/25 09:06) Review Of Systems ROS: No change since H&P Changes in ROS: see HPI Vital Signs Vital Signs: Vital Signs Temperature 97.9 F Pulse Rate 80 Pulse Rate 75 Pulse Rate 78 Respiratory Rate 20 Respiratory Rate 18 Respiratory Rate 18 Blood Pressure 157/81 Blood Pressure 164/76 Blood Pressure 158/90 Blood Pressure 165/79 Blood Pressure 168/70 O2 Sat by Pulse Oximetry 90 O2 Sat by Pulse Oximetry 93 O2 Sat by Pulse Oximetry 94 Physical Exam Oriented: Normal Eyes: Normal Ear: Normal Nose: Normal Throat: Normal Respiratory: Normal Cardiovascular: Normal : Normal GI:Auscultation: Decreased GI:Palpation: Normal GI: Tenderness: Diffuse (Diffuse tenderness more towards the left lower quadrant, mild rebound tenderness.) Skin: Normal Musculoskeletal: Normal Speech Pattern: Clear and Appropriate Laboratory and Diagnostics 08/13/25 04:22 08/13/25 04:22 Labs: 08/09/25 16:48 Blood Blood Culture - Preliminary 08/09/25 15:58 Blood Blood Culture - Preliminary Laboratory WBC 7.3 X10^3/uL (3.6-10.0) 08/13/25 04:22 RBC 4.34 X10^6/uL (3.5-5.4) 08/13/25 04:22 Hgb 12.3 g/dL (12.0-16.0) 08/13/25 04:22 Hct 36.3 % (36.0-47.0) 08/13/25 04:22 MCV 83.6 fL (80.0-100.0) 08/13/25 04:22 MCH 28.3 pg (27.0-34.0) 08/13/25 04:22 MCHC 33.9 g/dL (33.0-35.0) 08/13/25 04:22 RDW 14.2 % (11.6-16.5) 08/13/25 04:22 Plt Count 211 X10^3/uL (150.0-450.0) 08/13/25 04:22 MPV 8.2 fL (7.4-11.0) 08/13/25 04:22 Neut % (Auto) 73.7 % (42.0-75.0) 08/13/25 04:22 Lymph % (Auto) 15.4 % (21.0-51.0) L 08/13/25 04:22 [place] % (Auto) 10.0 % (0.0-13.0) 08/13/25 04:22 Eos % (Auto) 0.6 % (0.9-2.9) L 08/13/25 04:22 Baso % (Auto) 0.3 % (0.2-1.0) 08/13/25 04:22 Neut # (Auto) 5.4 x10^3/uL (2.2-4.8) H 08/13/25 04:22 Lymph # (Auto) 1.1 X10^3/uL (1.3-2.9) L 08/13/25 04:22 [place] # (Auto) 0.7 x10^3/uL (0.3-0.8) 08/13/25 04:22 Eos # (Auto) 0.0 x10^3/uL (0.0-0.2) 08/13/25 04:22 Baso # (Auto) 0.0 X10^3/uL (0.0-0.1) 08/13/25 04:22 Absolute Nucleated RBC 0.1 /100WBC 08/13/25 04:22 PT 16.1 SECONDS (11.8-14.3) 08/09/25 09:28 INR Target Range - 08/09/25 09:28 INR 1.28 (0.8-1.3) 08/09/25 09:28 Sodium 139 mmol/L (136-145) 08/13/25 04:22 Corrected Sodium 140 mmol/L (136-145) 08/13/25 04:22 Potassium 3.6 mmol/L (3.5-5.1) 08/13/25 04:22 Chloride 103 mmol/L (98-107) 08/13/25 04:22 Carbon Dioxide 34.1 mmol/L (21-32) H 08/13/25 04:22 BUN 14 mg/dL (7-18) 08/13/25 04:22 Creatinine 0.65 mg/dL (0.55-1.02) 08/13/25 04:22 Est GFR (MDRD) Af Amer > 60 (>60) 08/13/25 04:22 Est GFR (MDRD) Non-Af > 60 (>60) 08/13/25 04:22 Glucose 130 mg/dL (65-99) H 08/13/25 04:22 POC Glucose (mg/dL) 145 mg/dL (65-99) H 08/13/25 03:56 Lactic Acid 1.6 mmol/L (0.4-2.0) 08/09/25 15:58 Calcium 7.7 mg/dL (8.5-10.1) L 08/13/25 04:22 Corrected Calcium 9.1 mg/dL (8.5-10.1) 08/13/25 04:22 Phosphorus 2.2 mg/dL (2.6-4.7) L 08/11/25 04:53 Magnesium 1.9 mg/dL (2.0-2.9) L 08/13/25 04:22 Total Bilirubin 0.40 mg/dL (0.2-1.0) 08/13/25 04:22 AST 18 Units/L (15-37) 08/13/25 04:22 ALT 20 Units/L (12-78) 08/13/25 04:22 Alkaline Phosphatase 45 Units/L (46-116) L 08/13/25 04:22 Total Protein 5.1 g/dL (6.4-8.2) L 08/13/25 04:22 Albumin 2.2 g/dL (3.4-5.0) L 08/13/25 04:22 Globulin 2.9 g/dL (2.5-4.5) 08/13/25 04:22 Albumin/Globulin Ratio 0.8 Ratio (1.1-2.1) L 08/13/25 04:22 Prealbumin 10.9 mg/dL (18-35.7) L 08/12/25 04:37 Triglycerides 73 mg/dL (0-150) 08/11/25 04:53 Amylase 39 Units/L (25-115) 08/08/25 19:33 Lipase 19 Units/L (16-77) 08/08/25 19:33 Specimen Type Catherized urine 08/09/25 09:35 Urine Color Dark yellow (YELLOW) 08/09/25 09:35 Urine Appearance Clear (CLEAR) 08/09/25 09:35 Urine pH 6.0 (5.0 - 8.0) 08/09/25 09:35 Ur Specific [place] 1.025 (1.000-1.030) 08/09/25 09:35 Urine Protein 2+ (NEGATIVE) 08/09/25 09:35 Urine Glucose (UA) Negative (NEGATIVE) 08/09/25 09:35 Urine Ketones 2+ (NEGATIVE) 08/09/25 09:35 Urine Blood 1+ (NEGATIVE) 08/09/25 09:35 Urine Nitrite Negative (NEGATIVE) 08/09/25 09:35 Urine Bilirubin Negative (NEGATIVE) 08/09/25 09:35 Urine Urobilinogen Normal (NORMAL) 08/09/25 09:35 Ur Leukocyte Esterase Negative (NEGATIVE) 08/09/25 09:35 Urine RBC None seen /HPF (0-3) 08/09/25 09:35 Urine WBC 0-2 /HPF (0-5) 08/09/25 09:35 Ur Squamous Epith Cells Rare /HPF (NEGATIVE) 08/09/25 09:35 Ur Renal Epithelial Cell Few /HPF (NEGATIVE) 08/09/25 09:35 Amorphous Sediment Trace /HPF (NEGATIVE) 08/09/25 09:35 Urine Bacteria Trace /HPF (NEGATIVE) 08/09/25 09:35 Urine Mucus Moderate /HPF (NEGATIVE) 08/09/25 09:35 Ur Culture Indicated? No/not indicated 08/09/25 09:35 Stl C. diff Tox B Gene Negative (NEGATIVE) 08/12/25 05:16 Stl C. diff 027-NAP1-BI Presumptive negative (NEGATIVE) 08/12/25 05:16 C. difficile Toxin A&B Negative (NEGATIVE) 08/08/25 23:25 SARS CoV-2 RNA Rapid ARABELLA Negative (NEGATIVE) 08/08/25 20:46 Assessment and Plan 1: Acute diverticulitis with sealed perforation. Patient is on IV Zosyn and Flagyl, clear liquid and TPN The findings and treatment plan was discussed in details with the patient and her family. to continue IV antibiotics , pulmonary care, DVT prophylaxis. Bowel rest for now, may have water and small amount of clear liquid. Could be transferred to regular floor. Problem Patient Problems: Patient Problems C. difficile colitis (Acute) A04.72 Perforation of sigmoid colon due to diverticulitis (Acute) K57.20
[2025-08-13] MEDS: PULMICORT NEB TX 0.5 MG NEB ONE (08:49)
[2025-08-13] MEDS: DUONEB 0.5 MG/3 MG (3 mL) NEB ONE (08:49)
[2025-08-13] MEDS: CONSULT PHARMACY - POTASSIUM & MAGNESIUM XX SCH (08:50)
[2025-08-13] MEDS: CLINIMIX 5 %/20 % 1,000 ML with MVI INJ (ADULT) 10 ML, TPN ELECTROLYTES 20 ML, TRACE EL... IV SCH (09:31)
[2025-08-13] MEDS: DRUG FILTER EXTENSION SET ONE (09:31)
[2025-08-13] MEDS: MAG-OX TAB PO SCH (10:01)
[2025-08-13] MEDS: K-DUR TAB 20 MEQ PO SCH (10:01)
[2025-08-13] MEDS: KEPPRA TAB 500 MG PO SCH (11:36)
[2025-08-13] MEDS: PATIENT'S HOME MEDICATION (Potassium Chloride 10 mEq capsule, extended release) PO SCH (11:38)
[2025-08-13] MEDS: MAGNESIUM SULFATE 1 GRAM/100 mL PREMIX 1 G/100 ML BAG IV SCH (11:38)
[2025-08-13] MEDS: KLOR-CON 10 MEQ TAB PO SCH (11:39)
[2025-08-13] MEDS: PREVACID PO SCH (12:47)
[2025-08-13] MEDS: MYRBETRIQ ER TAB 25 MG PO SCH (12:48)
[2025-08-13] MEDS: TOPROL XL PO ONE (12:48)
[2025-08-13] MEDS: HYDROCHLOROTHIAZIDE 25 MG TAB PO SCH (12:48)
[2025-08-13] MEDS: ZOFRAN INJ 4 MG VIAL IVP PRN (13:23)
[2025-08-13] MEDS: DEPAKOTE PO SCH (20:13)
[2025-08-13] MEDS: KLONOPIN TAB 0.5 MG PO SCH (20:14)
[2025-08-14 05:47] LABS: MEAN PLATELET VOLUME 7.9 fL (7.4-11.0); RED CELL DISTRIBUTION WIDTH 14.0 % (11.6-16.5)
[2025-08-14 05:58] LABS: COR CA(FOR HYPOALB) 9.5 mg/dL (8.5-10.1); CREATININE 0.70 mg/dL (0.55-1.02); PHOSPHORUS 2.6 mg/dL (2.6-4.7); eGFR NON BLACK RACES > 60 (>60)
[2025-08-14] MEDS: PULMICORT NEB TX 0.5 MG NEB ONE (07:18)
[2025-08-14] MEDS: CONSULT PHARMACY - POTASSIUM & MAGNESIUM XX SCH (07:19)
[2025-08-14] MEDS: CLINIMIX 5 %/20 % 1,000 ML with MVI INJ (ADULT) 10 ML, TPN ELECTROLYTES 20 ML, TRACE EL... IV SCH (08:33)
[2025-08-14] MEDS: TOPROL XL PO SCH (08:37)
[2025-08-14] MEDS ORDERED: K-DUR TAB 20 MEQ PO SCH (09:00)
[2025-08-14] MEDS ORDERED: MAG-OX TAB PO SCH (09:00)
[2025-08-14] MEDS: DRUG FILTER EXTENSION SET ONE (09:09)
--- NOTE | 2025-08-14 10:23 | PCM.PROG ---
Progress Note Progress Note for Day of Date of Exam: 08/14/25 Subjective Subjective: Patient seen at bedside, no acute events overnight. She has been admitted for acute diverticulitis with sealed perforation. She states her diarrhea has been improving. She was started on clear liquids today. Chest x- ray and KUB are pending. Labs/imaging reviewed: - WBC 8.1 hemoglobin 12.7 potassium 3.6 creatinine 0.70 Plan: Continue current care. Follow surgery recommendations. Diet as per surgery. Continue TPN. Follow chest x-ray and KUB. Continue IV Zosyn, DC Flagyl. Continue home medications as appropriate. Replace electrolytes as per protocol. Monitor AM labs/imaging. Past Medical Family Social History Past Med/Fam/Surg Hx: No changes since H&P Allergies: Allergies No Known Drug Allergies Allergy (Verified 08/10/25 09:06) Review of Systems ROS: No change since H&P Vital Signs and I&O's Vital Signs: Vital Signs Temperature 97.8 F Temperature 98.2 F Pulse Rate 87 Pulse Rate 74 Pulse Rate 86 Respiratory Rate 20 Respiratory Rate 20 Blood Pressure 157/72 Blood Pressure 144/67 O2 Sat by Pulse Oximetry 93 O2 Sat by Pulse Oximetry 93 O2 Sat by Pulse Oximetry 94 Intake and Output: Intake & Output 08/11/25 08/12/25 08/13/25 08/14/25 23:59 23:59 23:59 23:59 Intake Total 2170 / 2170 2167 / 2167 1800 / 1800 518 / 518 Output Total 1250 / 1250 1000 / 1000 Balance 920 / 920 1167 / 1167 1800 / 1800 518 / 518 Physical Exam Oriented: Normal Eyes: Normal Ear: Normal Nose: Normal Throat: Normal Respiratory: Normal Cardiovascular: Normal : Normal Auscultation: Bowel Sounds: Decreased Tenderness: RLQ, LLQ and Mild Skin: Normal Musculoskeletal: Normal Psychiatric: Normal Mood Description: Calm Affect: Normal Speech Pattern: Clear and Appropriate Laboratory and Diagnostics 08/14/25 05:27 08/14/25 05:27 Labs: 08/09/25 16:48 Blood Blood Culture - Preliminary 08/09/25 15:58 Blood Blood Culture - Preliminary Laboratory WBC 8.1 X10^3/uL (3.6-10.0) 08/14/25 05:27 RBC 4.54 X10^6/uL (3.5-5.4) 08/14/25 05:27 Hgb 12.7 g/dL (12.0-16.0) 08/14/25 05:27 Hct 38.2 % (36.0-47.0) 08/14/25 05:27 MCV 84.2 fL (80.0-100.0) 08/14/25 05:27 MCH 28.0 pg (27.0-34.0) 08/14/25 05:27 MCHC 33.3 g/dL (33.0-35.0) 08/14/25 05:27 RDW 14.0 % (11.6-16.5) 08/14/25 05:27 Plt Count 231 X10^3/uL (150.0-450.0) 08/14/25 05:27 MPV 7.9 fL (7.4-11.0) 08/14/25 05:27 Neut % (Auto) 72.3 % (42.0-75.0) 08/14/25 05:27 Lymph % (Auto) 16.5 % (21.0-51.0) L 08/14/25 05:27 [place] % (Auto) 9.0 % (0.0-13.0) 08/14/25 05:27 Eos % (Auto) 1.9 % (0.9-2.9) 08/14/25 05:27 Baso % (Auto) 0.3 % (0.2-1.0) 08/14/25 05:27 Neut # (Auto) 5.9 x10^3/uL (2.2-4.8) H 08/14/25 05:27 Lymph # (Auto) 1.3 X10^3/uL (1.3-2.9) 08/14/25 05:27 [place] # (Auto) 0.7 x10^3/uL (0.3-0.8) 08/14/25 05:27 Eos # (Auto) 0.1 x10^3/uL (0.0-0.2) 08/14/25 05:27 Baso # (Auto) 0.0 X10^3/uL (0.0-0.1) 08/14/25 05:27 Absolute Nucleated RBC 0.2 /100WBC 08/14/25 05:27 PT 16.1 SECONDS (11.8-14.3) 08/09/25 09:28 INR Target Range - 08/09/25 09:28 INR 1.28 (0.8-1.3) 08/09/25 09:28 Sodium 139 mmol/L (136-145) 08/14/25 05:27 Corrected Sodium TNP 08/14/25 05:27 Potassium 3.6 mmol/L (3.5-5.1) 08/14/25 05:27 Chloride 100 mmol/L (98-107) 08/14/25 05:27 Carbon Dioxide 34.4 mmol/L (21-32) H 08/14/25 05:27 BUN 12 mg/dL (7-18) 08/14/25 05:27 Creatinine 0.70 mg/dL (0.55-1.02) 08/14/25 05:27 Est GFR (MDRD) Af Amer > 60 (>60) 08/14/25 05:27 Est GFR (MDRD) Non-Af > 60 (>60) 08/14/25 05:27 Glucose 108 mg/dL (65-99) H 08/14/25 05:27 POC Glucose (mg/dL) 121 mg/dL (65-99) H 08/14/25 03:46 Lactic Acid 1.6 mmol/L (0.4-2.0) 08/09/25 15:58 Calcium 8.5 mg/dL (8.5-10.1) 08/14/25 05:27 Corrected Calcium 9.5 mg/dL (8.5-10.1) 08/14/25 05:27 Phosphorus 2.6 mg/dL (2.6-4.7) 08/14/25 05:27 Magnesium 1.9 mg/dL (2.0-2.9) L 08/14/25 05:27 Total Bilirubin 0.50 mg/dL (0.2-1.0) 08/14/25 05:27 AST 23 Units/L (15-37) 08/14/25 05:27 ALT 29 Units/L (12-78) 08/14/25 05:27 Alkaline Phosphatase 52 Units/L (46-116) 08/14/25 05:27 Total Protein 5.7 g/dL (6.4-8.2) L 08/14/25 05:27 Albumin 2.8 g/dL (3.4-5.0) L 08/14/25 05:27 Globulin 2.9 g/dL (2.5-4.5) 08/14/25 05:27 Albumin/Globulin Ratio 1.0 Ratio (1.1-2.1) L 08/14/25 05:27 Prealbumin 10.9 mg/dL (18-35.7) L 08/12/25 04:37 Triglycerides 107 mg/dL (0-150) 08/14/25 05:27 Amylase 39 Units/L (25-115) 08/08/25 19:33 Lipase 19 Units/L (16-77) 08/08/25 19:33 Specimen Type Catherized urine 08/09/25 09:35 Urine Color Dark yellow (YELLOW) 08/09/25 09:35 Urine Appearance Clear (CLEAR) 08/09/25 09:35 Urine pH 6.0 (5.0 - 8.0) 08/09/25 09:35 Ur Specific [place] 1.025 (1.000-1.030) 08/09/25 09:35 Urine Protein 2+ (NEGATIVE) 08/09/25 09:35 Urine Glucose (UA) Negative (NEGATIVE) 08/09/25 09:35 Urine Ketones 2+ (NEGATIVE) 08/09/25 09:35 Urine Blood 1+ (NEGATIVE) 08/09/25 09:35 Urine Nitrite Negative (NEGATIVE) 08/09/25 09:35 Urine Bilirubin Negative (NEGATIVE) 08/09/25 09:35 Urine Urobilinogen Normal (NORMAL) 08/09/25 09:35 Ur Leukocyte Esterase Negative (NEGATIVE) 08/09/25 09:35 Urine RBC None seen /HPF (0-3) 08/09/25 09:35 Urine WBC 0-2 /HPF (0-5) 08/09/25 09:35 Ur Squamous Epith Cells Rare /HPF (NEGATIVE) 08/09/25 09:35 Ur Renal Epithelial Cell Few /HPF (NEGATIVE) 08/09/25 09:35 Amorphous Sediment Trace /HPF (NEGATIVE) 08/09/25 09:35 Urine Bacteria Trace /HPF (NEGATIVE) 08/09/25 09:35 Urine Mucus Moderate /HPF (NEGATIVE) 08/09/25 09:35 Ur Culture Indicated? No/not indicated 08/09/25 09:35 Stl C. diff Tox B Gene Negative (NEGATIVE) 08/12/25 05:16 Stl C. diff 027-NAP1-BI Presumptive negative (NEGATIVE) 08/12/25 05:16 C. difficile Toxin A&B Negative (NEGATIVE) 08/08/25 23:25 SARS CoV-2 RNA Rapid ARABELLA Negative (NEGATIVE) 08/08/25 20:46 Plan (1) Perforation of sigmoid colon due to diverticulitis: Status: Acute (2) HTN (hypertension): Status: Chronic Qualifiers: Hypertension type: primary hypertension Qualified Code(s): I10 - Essential (primary) hypertension (3) Preop cardiovascular exam: Status: Acute (4) Seizure disorder: Status: Chronic
--- NOTE | 2025-08-14 10:58 | RAD ---
EXAM: KUB HISTORY: ABD pain/perforated bowel; COMPARISON: CT dated 08/08/2025; KUB dated 08/11/2025 TECHNIQUE: AP abdomen, supine FINDINGS: Prominent gas-filled small bowel loops in the central abdomen. There is relative paucity of colonic gas. No gross free peritoneal air on supine view. Right upper quadrant metallic surgical clips. IMPRESSION: Increased prominent gas-filled small bowel loops in the mid abdomen. Findings may be secondary to ileus but difficult to exclude obstruction. THIS IS AN ELECTRONICALLY VERIFIED FINAL REPORT 08/14/2025 10:52 AM - Electronically signed by Yaniv Francisco MD
--- NOTE | 2025-08-14 10:58 | RAD ---
EXAM: CHEST, 1 VIEW HISTORY: SOB; COMPARISON: 08/11/2025 TECHNIQUE: AP FINDINGS: Stable left upper extremity PICC with tip over the low SVC. Unchanged cardiac silhouette. Low lung volumes. Increased bibasilar atelectasis. No large pleural effusion or visible pneumothorax. IMPRESSION: Low lung volumes with mild increased bibasilar atelectasis. THIS IS AN ELECTRONICALLY VERIFIED FINAL REPORT 08/14/2025 10:53 AM - Electronically signed by Yaniv Francisco MD
--- NOTE | 2025-08-14 12:59 | DR.PROGNOT ---
HOSPITAL PROGRESS NOTE Progress Note for Day of: Progress Note Date: 08/14/25 Chief Complaint Chief Complaint: Moderate shortness of breath with atelectasis of both bases on the chest x-ray. Complaining of lower abdominal pain which is moderate, had small bowel movement yesterday and passing flatus, her KUB showed ileus pattern with little air in the pelvis and distal colon. White count is 8.1, BUN/creatinine are normal as well as bilirubin and liver function test, albumin 2.8. Abdominal pelvic CT scan continues to show acute diverticulitis and pericolic inflammation with a phlegmon formation, associated ileus of the small bowel. Temperature 98, Lungs slight reduced breath sounds on the right compared with the left. Abdomen is soft with moderate diffuse tenderness more towards the left lower quadrant, no rebound tenderness, bowel sounds still hypoactive but positive. To start clear liquid diet today, reduce IV fluid and same TPN. Same IV antibiotics and DVT prophylaxis. Past Medical Family Social History Past Med/Fam/Surg Hx: No changes since H&P Allergies: Allergies No Known Drug Allergies Allergy (Verified 08/10/25 09:06) Review Of Systems ROS: No change since H&P Changes in ROS: see HPI Vital Signs Vital Signs: Vital Signs Temperature 98.1 F Temperature 97.8 F Pulse Rate 86 Pulse Rate 87 Pulse Rate 74 Respiratory Rate 20 Respiratory Rate 20 Blood Pressure 172/83 Blood Pressure 157/72 O2 Sat by Pulse Oximetry 94 O2 Sat by Pulse Oximetry 93 O2 Sat by Pulse Oximetry 93 Physical Exam Oriented: Normal Eyes: Normal Ear: Normal Nose: Normal Throat: Normal Respiratory: Diminished (Diminished breath sounds on the right) Cardiovascular: Normal : Normal GI:Auscultation: Decreased GI:Palpation: Normal GI: Tenderness: RLQ, LLQ, Mild and Other (Soft abdomen with diffuse tenderness more towards the left lower quadrant, no rebound tenderness.) Skin: Normal Musculoskeletal: Normal Psychiatric: Normal Mood Description: Calm Affect: Normal Speech Pattern: Clear and Appropriate Laboratory and Diagnostics 08/14/25 05:27 08/14/25 05:27 Labs: 08/09/25 16:48 Blood Blood Culture - Preliminary 08/09/25 15:58 Blood Blood Culture - Preliminary Laboratory WBC 8.1 X10^3/uL (3.6-10.0) 08/14/25 05:27 RBC 4.54 X10^6/uL (3.5-5.4) 08/14/25 05:27 Hgb 12.7 g/dL (12.0-16.0) 08/14/25 05:27 Hct 38.2 % (36.0-47.0) 08/14/25 05:27 MCV 84.2 fL (80.0-100.0) 08/14/25 05:27 MCH 28.0 pg (27.0-34.0) 08/14/25 05:27 MCHC 33.3 g/dL (33.0-35.0) 08/14/25 05:27 RDW 14.0 % (11.6-16.5) 08/14/25 05:27 Plt Count 231 X10^3/uL (150.0-450.0) 08/14/25 05:27 MPV 7.9 fL (7.4-11.0) 08/14/25 05:27 Neut % (Auto) 72.3 % (42.0-75.0) 08/14/25 05:27 Lymph % (Auto) 16.5 % (21.0-51.0) L 08/14/25 05:27 [place] % (Auto) 9.0 % (0.0-13.0) 08/14/25 05:27 Eos % (Auto) 1.9 % (0.9-2.9) 08/14/25 05:27 Baso % (Auto) 0.3 % (0.2-1.0) 08/14/25 05:27 Neut # (Auto) 5.9 x10^3/uL (2.2-4.8) H 08/14/25 05:27 Lymph # (Auto) 1.3 X10^3/uL (1.3-2.9) 08/14/25 05:27 [place] # (Auto) 0.7 x10^3/uL (0.3-0.8) 08/14/25 05:27 Eos # (Auto) 0.1 x10^3/uL (0.0-0.2) 08/14/25 05:27 Baso # (Auto) 0.0 X10^3/uL (0.0-0.1) 08/14/25 05:27 Absolute Nucleated RBC 0.2 /100WBC 08/14/25 05:27 PT 16.1 SECONDS (11.8-14.3) 08/09/25 09:28 INR Target Range - 08/09/25 09:28 INR 1.28 (0.8-1.3) 08/09/25 09:28 Sodium 139 mmol/L (136-145) 08/14/25 05:27 Corrected Sodium TNP 08/14/25 05:27 Potassium 3.6 mmol/L (3.5-5.1) 08/14/25 05:27 Chloride 100 mmol/L (98-107) 08/14/25 05:27 Carbon Dioxide 34.4 mmol/L (21-32) H 08/14/25 05:27 BUN 12 mg/dL (7-18) 08/14/25 05:27 Creatinine 0.70 mg/dL (0.55-1.02) 08/14/25 05:27 Est GFR (MDRD) Af Amer > 60 (>60) 08/14/25 05:27 Est GFR (MDRD) Non-Af > 60 (>60) 08/14/25 05:27 Glucose 108 mg/dL (65-99) H 08/14/25 05:27 POC Glucose (mg/dL) 114 mg/dL (65-99) H 08/14/25 11:25 Lactic Acid 1.6 mmol/L (0.4-2.0) 08/09/25 15:58 Calcium 8.5 mg/dL (8.5-10.1) 08/14/25 05:27 Corrected Calcium 9.5 mg/dL (8.5-10.1) 08/14/25 05:27 Phosphorus 2.6 mg/dL (2.6-4.7) 08/14/25 05:27 Magnesium 1.9 mg/dL (2.0-2.9) L 08/14/25 05:27 Total Bilirubin 0.50 mg/dL (0.2-1.0) 08/14/25 05:27 AST 23 Units/L (15-37) 08/14/25 05:27 ALT 29 Units/L (12-78) 08/14/25 05:27 Alkaline Phosphatase 52 Units/L (46-116) 08/14/25 05:27 Total Protein 5.7 g/dL (6.4-8.2) L 08/14/25 05:27 Albumin 2.8 g/dL (3.4-5.0) L 08/14/25 05:27 Globulin 2.9 g/dL (2.5-4.5) 08/14/25 05:27 Albumin/Globulin Ratio 1.0 Ratio (1.1-2.1) L 08/14/25 05:27 Prealbumin 10.9 mg/dL (18-35.7) L 08/12/25 04:37 Triglycerides 107 mg/dL (0-150) 08/14/25 05:27 Amylase 39 Units/L (25-115) 08/08/25 19:33 Lipase 19 Units/L (16-77) 08/08/25 19:33 Specimen Type Catherized urine 08/09/25 09:35 Urine Color Dark yellow (YELLOW) 08/09/25 09:35 Urine Appearance Clear (CLEAR) 08/09/25 09:35 Urine pH 6.0 (5.0 - 8.0) 08/09/25 09:35 Ur Specific [place] 1.025 (1.000-1.030) 08/09/25 09:35 Urine Protein 2+ (NEGATIVE) 08/09/25 09:35 Urine Glucose (UA) Negative (NEGATIVE) 08/09/25 09:35 Urine Ketones 2+ (NEGATIVE) 08/09/25 09:35 Urine Blood 1+ (NEGATIVE) 08/09/25 09:35 Urine Nitrite Negative (NEGATIVE) 08/09/25 09:35 Urine Bilirubin Negative (NEGATIVE) 08/09/25 09:35 Urine Urobilinogen Normal (NORMAL) 08/09/25 09:35 Ur Leukocyte Esterase Negative (NEGATIVE) 08/09/25 09:35 Urine RBC None seen /HPF (0-3) 08/09/25 09:35 Urine WBC 0-2 /HPF (0-5) 08/09/25 09:35 Ur Squamous Epith Cells Rare /HPF (NEGATIVE) 08/09/25 09:35 Ur Renal Epithelial Cell Few /HPF (NEGATIVE) 08/09/25 09:35 Amorphous Sediment Trace /HPF (NEGATIVE) 08/09/25 09:35 Urine Bacteria Trace /HPF (NEGATIVE) 08/09/25 09:35 Urine Mucus Moderate /HPF (NEGATIVE) 08/09/25 09:35 Ur Culture Indicated? No/not indicated 08/09/25 09:35 Stl C. diff Tox B Gene Negative (NEGATIVE) 08/12/25 05:16 Stl C. diff [id number]-BI Presumptive negative (NEGATIVE) 08/12/25 05:16 C. difficile Toxin A&B Negative (NEGATIVE) 08/08/25 23:25 SARS CoV-2 RNA Rapid ARABELLA Negative (NEGATIVE) 08/08/25 20:46 Assessment and Plan 1: Acute diverticulitis with sealed perforation. Patient is on IV Zosyn and Flagyl, clear liquid and TPN The findings and treatment plan was discussed in details with the patient and her family. to continue IV antibiotics , pulmonary care, DVT prophylaxis. On clear liquid diet. Problem Patient Problems: Patient Problems C. difficile colitis (Acute) A04.72 Perforation of sigmoid colon due to diverticulitis (Acute) K57.20
[2025-08-14] MEDS: CATAPRES TAB 0.1 MG PO ONE (13:21)
[2025-08-14] MEDS: APRESOLINE INJ 20 MG VIAL IVP ONE (15:27)
[2025-08-15] MEDS: MAALOX or MYLANTA PO PRN (05:11)
[2025-08-15 05:56] LABS: MEAN PLATELET VOLUME 7.8 fL (7.4-11.0); RED CELL DISTRIBUTION WIDTH 14.0 % (11.6-16.5)
[2025-08-15 06:09] LABS: CREATININE 0.73 mg/dL (0.55-1.02); eGFR NON BLACK RACES > 60 (>60)
[2025-08-15] MEDS ORDERED: CONSULT PHARMACY - POTASSIUM & MAGNESIUM XX SCH (07:00)
[2025-08-15] MEDS ORDERED: K-DUR TAB 20 MEQ PO ONE (09:00)
[2025-08-15] MEDS ORDERED: VITAMIN D (1.25MG) PO SCH (09:00)
--- NOTE | 2025-08-15 09:31 | DR.PROGNOT ---
HOSPITAL PROGRESS NOTE Progress Note for Day of: Progress Note Date: 08/15/25 Chief Complaint Chief Complaint: Moderate shortness of breath with atelectasis of both bases on the chest x-ray. No new complaint, she is able to ambulate in the room but still complaining of lower abdominal pain with on and off cramps, had small bowel movements and passing flatus. CBC, electrolytes, LFTs and kidney functions are normal. Past Medical Family Social History Past Med/Fam/Surg Hx: No changes since H&P Allergies: Allergies No Known Drug Allergies Allergy (Verified 08/10/25 09:06) Review Of Systems ROS: No change since H&P Changes in ROS: see HPI Vital Signs Vital Signs: Vital Signs Temperature 97.9 F Temperature 97.9 F Temperature 98.3 F Pulse Rate 95 Pulse Rate 85 Pulse Rate 85 Pulse Rate 98 Pulse Rate 93 Respiratory Rate 20 Respiratory Rate 20 Respiratory Rate 20 Blood Pressure 136/69 Blood Pressure 136/69 Blood Pressure 133/72 O2 Sat by Pulse Oximetry 95 O2 Sat by Pulse Oximetry 100 O2 Sat by Pulse Oximetry 100 O2 Sat by Pulse Oximetry 99 O2 Sat by Pulse Oximetry 93 Physical Exam Oriented: Normal Eyes: Normal Ear: Normal Nose: Normal Throat: Normal Respiratory: Diminished (Diminished breath sounds on the right) Cardiovascular: Normal : Normal GI:Auscultation: Decreased GI:Palpation: Normal GI: Tenderness: RLQ, LLQ, Mild and Other (Soft abdomen with diffuse tenderness more towards the left lower quadrant, no rebound tenderness.) Skin: Normal Musculoskeletal: Normal Psychiatric: Normal Mood Description: Calm Affect: Normal Speech Pattern: Clear and Appropriate Laboratory and Diagnostics 08/15/25 05:22 08/15/25 05:22 Labs: 08/09/25 16:48 Blood Blood Culture - Preliminary 08/09/25 15:58 Blood Blood Culture - Preliminary Laboratory WBC 9.3 X10^3/uL (3.6-10.0) 08/15/25 05:22 RBC 4.66 X10^6/uL (3.5-5.4) 08/15/25 05:22 Hgb 13.1 g/dL (12.0-16.0) 08/15/25 05:22 Hct 38.9 % (36.0-47.0) 08/15/25 05:22 MCV 83.4 fL (80.0-100.0) 08/15/25 05:22 MCH 28.0 pg (27.0-34.0) 08/15/25 05:22 MCHC 33.6 g/dL (33.0-35.0) 08/15/25 05:22 RDW 14.0 % (11.6-16.5) 08/15/25 05:22 Plt Count 292 X10^3/uL (150.0-450.0) 08/15/25 05:22 MPV 7.8 fL (7.4-11.0) 08/15/25 05:22 Neut % (Auto) 67.3 % (42.0-75.0) 08/15/25 05:22 Lymph % (Auto) 21.7 % (21.0-51.0) 08/15/25 05:22 [place] % (Auto) 8.7 % (0.0-13.0) 08/15/25 05:22 Eos % (Auto) 1.8 % (0.9-2.9) 08/15/25 05:22 Baso % (Auto) 0.5 % (0.2-1.0) 08/15/25 05:22 Neut # (Auto) 6.3 x10^3/uL (2.2-4.8) H 08/15/25 05:22 Lymph # (Auto) 2.0 X10^3/uL (1.3-2.9) 08/15/25 05:22 [place] # (Auto) 0.8 x10^3/uL (0.3-0.8) 08/15/25 05:22 Eos # (Auto) 0.2 x10^3/uL (0.0-0.2) 08/15/25 05:22 Baso # (Auto) 0.0 X10^3/uL (0.0-0.1) 08/15/25 05:22 Absolute Nucleated RBC 0.1 /100WBC 08/15/25 05:22 PT 16.1 SECONDS (11.8-14.3) 08/09/25 09:28 INR Target Range - 08/09/25 09:28 INR 1.28 (0.8-1.3) 08/09/25 09:28 Sodium 136 mmol/L (136-145) 08/15/25 05:22 Corrected Sodium TNP 08/15/25 05:22 Potassium 3.7 mmol/L (3.5-5.1) 08/15/25 05:22 Chloride 98 mmol/L (98-107) 08/15/25 05:22 Carbon Dioxide 31.2 mmol/L (21-32) 08/15/25 05:22 BUN 14 mg/dL (7-18) 08/15/25 05:22 Creatinine 0.73 mg/dL (0.55-1.02) 08/15/25 05:22 Est GFR (MDRD) Af Amer > 60 (>60) 08/15/25 05:22 Est GFR (MDRD) Non-Af > 60 (>60) 08/15/25 05:22 Glucose 100 mg/dL (65-99) H 08/15/25 05:22 POC Glucose (mg/dL) 114 mg/dL (65-99) H 08/15/25 04:40 Lactic Acid 1.6 mmol/L (0.4-2.0) 08/09/25 15:58 Calcium 9.0 mg/dL (8.5-10.1) 08/15/25 05:22 Corrected Calcium 9.5 mg/dL (8.5-10.1) 08/14/25 05:27 Phosphorus 2.6 mg/dL (2.6-4.7) 08/14/25 05:27 Magnesium 2.1 mg/dL (2.0-2.9) 08/15/25 05:22 Total Bilirubin 0.50 mg/dL (0.2-1.0) 08/14/25 05:27 AST 23 Units/L (15-37) 08/14/25 05:27 ALT 29 Units/L (12-78) 08/14/25 05:27 Alkaline Phosphatase 52 Units/L (46-116) 08/14/25 05:27 Total Protein 5.7 g/dL (6.4-8.2) L 08/14/25 05:27 Albumin 2.8 g/dL (3.4-5.0) L 08/14/25 05:27 Globulin 2.9 g/dL (2.5-4.5) 08/14/25 05:27 Albumin/Globulin Ratio 1.0 Ratio (1.1-2.1) L 08/14/25 05:27 Prealbumin 10.9 mg/dL (18-35.7) L 08/12/25 04:37 Triglycerides 107 mg/dL (0-150) 08/14/25 05:27 Amylase 39 Units/L (25-115) 08/08/25 19:33 Lipase 19 Units/L (16-77) 08/08/25 19:33 Specimen Type Catherized urine 08/09/25 09:35 Urine Color Dark yellow (YELLOW) 08/09/25 09:35 Urine Appearance Clear (CLEAR) 08/09/25 09:35 Urine pH 6.0 (5.0 - 8.0) 08/09/25 09:35 Ur Specific [place] 1.025 (1.000-1.030) 08/09/25 09:35 Urine Protein 2+ (NEGATIVE) 08/09/25 09:35 Urine Glucose (UA) Negative (NEGATIVE) 08/09/25 09:35 Urine Ketones 2+ (NEGATIVE) 08/09/25 09:35 Urine Blood 1+ (NEGATIVE) 08/09/25 09:35 Urine Nitrite Negative (NEGATIVE) 08/09/25 09:35 Urine Bilirubin Negative (NEGATIVE) 08/09/25 09:35 Urine Urobilinogen Normal (NORMAL) 08/09/25 09:35 Ur Leukocyte Esterase Negative (NEGATIVE) 08/09/25 09:35 Urine RBC None seen /HPF (0-3) 08/09/25 09:35 Urine WBC 0-2 /HPF (0-5) 08/09/25 09:35 Ur Squamous Epith Cells Rare /HPF (NEGATIVE) 08/09/25 09:35 Ur Renal Epithelial Cell Few /HPF (NEGATIVE) 08/09/25 09:35 Amorphous Sediment Trace /HPF (NEGATIVE) 08/09/25 09:35 Urine Bacteria Trace /HPF (NEGATIVE) 08/09/25 09:35 Urine Mucus Moderate /HPF (NEGATIVE) 08/09/25 09:35 Ur Culture Indicated? No/not indicated 08/09/25 09:35 Stl C. diff Tox B Gene Negative (NEGATIVE) 08/12/25 05:16 Stl C. diff 027-NAP1-BI Presumptive negative (NEGATIVE) 08/12/25 05:16 C. difficile Toxin A&B Negative (NEGATIVE) 08/08/25 23:25 SARS CoV-2 RNA Rapid ARABELLA Negative (NEGATIVE) 08/08/25 20:46 Assessment and Plan 1: Acute diverticulitis with sealed perforation. Patient is on IV Zosyn and Flagyl, clear liquid and TPN The findings and treatment plan was discussed in details with the patient and her family. to continue IV antibiotics , pulmonary care, DVT prophylaxis. On clear liquid diet. Problem Patient Problems: Patient Problems C. difficile colitis (Acute) A04.72 Perforation of sigmoid colon due to diverticulitis (Acute) K57.20
--- NOTE | 2025-08-15 10:43 | RAD ---
EXAM: CHEST, 1 VIEW HISTORY: SOB, ABD PAIN; ANEMIA, ANGINA, ASTHMA, GERD, HTN, SEIZURES SX: CHOL,E HYST, TONSILS COMPARISON: No relevant prior studies were available for comparison at the time of interpretation. TECHNIQUE: CHEST, 1 VIEW FINDINGS: Chest: Lines and tubes: Left PICC terminates in the SVC. Cardiac leads overlie the chest Mediastinum: Cardiac and mediastinal shadow is within normal limits for size and contour. Pulmonary vessels: Pulmonary vasculature is prominent. Lung bowen: No suspicious airspace opacity. Pleura: No effusion. No pneumothorax. Bones and soft tissues: No acute osseous or soft tissue abnormality. IMPRESSION: 1. Increased volume status suggested THIS IS AN ELECTRONICALLY VERIFIED FINAL REPORT 08/15/2025 10:40 AM - Electronically signed by Patel Jimenez MD
--- NOTE | 2025-08-15 12:12 | PCM.PROG ---
Progress Note Progress Note for Day of Date of Exam: 08/15/25 Subjective Subjective: Patient seen at bedside, no acute events overnight. She is feeling better today. She has been tolerating her diet. She has been admitted for acute diverticulitis with sealed perforation. She states her diarrhea has been improving. KUB yesterday was suggestive of ileus. Chest x-ray did show some atelectasis. Labs/imaging reviewed: - WBC 9.3 hemoglobin 13.1 potassium 3.7 creatinine 0.73 Plan: Continue current care. Follow surgery recommendations. Diet advanced to full liquids as per surgery. Continue hydration. Continue bronchodilators. Follow chest x-ray and KUB. Continue IV Zosyn. Ambulate as tolerated. Continue home medications as appropriate. Replace electrolytes as per protocol. Monitor AM labs/imaging. Past Medical Family Social History Past Med/Fam/Surg Hx: No changes since H&P Allergies: Allergies No Known Drug Allergies Allergy (Verified 08/10/25 09:06) Review of Systems ROS: No change since H&P Vital Signs and I&O's Vital Signs: Vital Signs Temperature 97.9 F Temperature 97.9 F Pulse Rate 95 Pulse Rate 85 Pulse Rate 85 Pulse Rate 98 Respiratory Rate 20 Respiratory Rate 20 Blood Pressure 136/69 Blood Pressure 136/69 O2 Sat by Pulse Oximetry 95 O2 Sat by Pulse Oximetry 100 O2 Sat by Pulse Oximetry 100 O2 Sat by Pulse Oximetry 99 Intake and Output: Intake & Output 08/12/25 08/13/25 08/14/25 08/15/25 23:59 23:59 23:59 23:59 Intake Total 2167 / 2167 1800 / 1800 2550 / 2550 1086 / 1086 Output Total 1000 / 1000 Balance 1167 / 1167 1800 / 1800 2550 / 2550 1086 / 1086 Physical Exam Oriented: Normal Eyes: Normal Ear: Normal Nose: Normal Throat: Normal Respiratory: Generalized and Diminished Cardiovascular: Normal : Normal Auscultation: Bowel Sounds: Decreased Tenderness: RLQ, LLQ, Mild and Other (Soft abdomen with diffuse tenderness more towards the left lower quadrant, no rebound tenderness.) Skin: Normal Musculoskeletal: Normal Psychiatric: Normal Mood Description: Calm Affect: Normal Speech Pattern: Clear and Appropriate Laboratory and Diagnostics 08/15/25 05:22 08/15/25 05:22 Labs: 08/09/25 16:48 Blood Blood Culture - Final 08/09/25 15:58 Blood Blood Culture - Final Laboratory WBC 9.3 X10^3/uL (3.6-10.0) 08/15/25 05:22 RBC 4.66 X10^6/uL (3.5-5.4) 08/15/25 05:22 Hgb 13.1 g/dL (12.0-16.0) 08/15/25 05:22 Hct 38.9 % (36.0-47.0) 08/15/25 05:22 MCV 83.4 fL (80.0-100.0) 08/15/25 05:22 MCH 28.0 pg (27.0-34.0) 08/15/25 05:22 MCHC 33.6 g/dL (33.0-35.0) 08/15/25 05:22 RDW 14.0 % (11.6-16.5) 08/15/25 05:22 Plt Count 292 X10^3/uL (150.0-450.0) 08/15/25 05:22 MPV 7.8 fL (7.4-11.0) 08/15/25 05:22 Neut % (Auto) 67.3 % (42.0-75.0) 08/15/25 05:22 Lymph % (Auto) 21.7 % (21.0-51.0) 08/15/25 05:22 [place] % (Auto) 8.7 % (0.0-13.0) 08/15/25 05:22 Eos % (Auto) 1.8 % (0.9-2.9) 08/15/25 05:22 Baso % (Auto) 0.5 % (0.2-1.0) 08/15/25 05:22 Neut # (Auto) 6.3 x10^3/uL (2.2-4.8) H 08/15/25 05:22 Lymph # (Auto) 2.0 X10^3/uL (1.3-2.9) 08/15/25 05:22 [place] # (Auto) 0.8 x10^3/uL (0.3-0.8) 08/15/25 05:22 Eos # (Auto) 0.2 x10^3/uL (0.0-0.2) 08/15/25 05:22 Baso # (Auto) 0.0 X10^3/uL (0.0-0.1) 08/15/25 05:22 Absolute Nucleated RBC 0.1 /100WBC 08/15/25 05:22 PT 16.1 SECONDS (11.8-14.3) 08/09/25 09:28 INR Target Range - 08/09/25 09:28 INR 1.28 (0.8-1.3) 08/09/25 09:28 Sodium 136 mmol/L (136-145) 08/15/25 05:22 Corrected Sodium TNP 08/15/25 05:22 Potassium 3.7 mmol/L (3.5-5.1) 08/15/25 05:22 Chloride 98 mmol/L (98-107) 08/15/25 05:22 Carbon Dioxide 31.2 mmol/L (21-32) 08/15/25 05:22 BUN 14 mg/dL (7-18) 08/15/25 05:22 Creatinine 0.73 mg/dL (0.55-1.02) 08/15/25 05:22 Est GFR (MDRD) Af Amer > 60 (>60) 08/15/25 05:22 Est GFR (MDRD) Non-Af > 60 (>60) 08/15/25 05:22 Glucose 100 mg/dL (65-99) H 08/15/25 05:22 POC Glucose (mg/dL) 114 mg/dL (65-99) H 08/15/25 04:40 Lactic Acid 1.6 mmol/L (0.4-2.0) 08/09/25 15:58 Calcium 9.0 mg/dL (8.5-10.1) 08/15/25 05:22 Corrected Calcium 9.5 mg/dL (8.5-10.1) 08/14/25 05:27 Phosphorus 2.6 mg/dL (2.6-4.7) 08/14/25 05:27 Magnesium 2.1 mg/dL (2.0-2.9) 08/15/25 05:22 Total Bilirubin 0.50 mg/dL (0.2-1.0) 08/14/25 05:27 AST 23 Units/L (15-37) 08/14/25 05:27 ALT 29 Units/L (12-78) 08/14/25 05:27 Alkaline Phosphatase 52 Units/L (46-116) 08/14/25 05:27 Total Protein 5.7 g/dL (6.4-8.2) L 08/14/25 05:27 Albumin 2.8 g/dL (3.4-5.0) L 08/14/25 05:27 Globulin 2.9 g/dL (2.5-4.5) 08/14/25 05:27 Albumin/Globulin Ratio 1.0 Ratio (1.1-2.1) L 08/14/25 05:27 Prealbumin 10.9 mg/dL (18-35.7) L 08/12/25 04:37 Triglycerides 107 mg/dL (0-150) 08/14/25 05:27 Amylase 39 Units/L (25-115) 08/08/25 19:33 Lipase 19 Units/L (16-77) 08/08/25 19:33 Specimen Type Catherized urine 08/09/25 09:35 Urine Color Dark yellow (YELLOW) 08/09/25 09:35 Urine Appearance Clear (CLEAR) 08/09/25 09:35 Urine pH 6.0 (5.0 - 8.0) 08/09/25 09:35 Ur Specific [place] 1.025 (1.000-1.030) 08/09/25 09:35 Urine Protein 2+ (NEGATIVE) 08/09/25 09:35 Urine Glucose (UA) Negative (NEGATIVE) 08/09/25 09:35 Urine Ketones 2+ (NEGATIVE) 08/09/25 09:35 Urine Blood 1+ (NEGATIVE) 08/09/25 09:35 Urine Nitrite Negative (NEGATIVE) 08/09/25 09:35 Urine Bilirubin Negative (NEGATIVE) 08/09/25 09:35 Urine Urobilinogen Normal (NORMAL) 08/09/25 09:35 Ur Leukocyte Esterase Negative (NEGATIVE) 08/09/25 09:35 Urine RBC None seen /HPF (0-3) 08/09/25 09:35 Urine WBC 0-2 /HPF (0-5) 08/09/25 09:35 Ur Squamous Epith Cells Rare /HPF (NEGATIVE) 08/09/25 09:35 Ur Renal Epithelial Cell Few /HPF (NEGATIVE) 08/09/25 09:35 Amorphous Sediment Trace /HPF (NEGATIVE) 08/09/25 09:35 Urine Bacteria Trace /HPF (NEGATIVE) 08/09/25 09:35 Urine Mucus Moderate /HPF (NEGATIVE) 08/09/25 09:35 Ur Culture Indicated? No/not indicated 08/09/25 09:35 Stl C. diff Tox B Gene Negative (NEGATIVE) 08/12/25 05:16 Stl C. diff 027-NAP1-BI Presumptive negative (NEGATIVE) 08/12/25 05:16 C. difficile Toxin A&B Negative (NEGATIVE) 08/08/25 23:25 SARS CoV-2 RNA Rapid ARABELLA Negative (NEGATIVE) 08/08/25 20:46 Plan (1) Perforation of sigmoid colon due to diverticulitis: Status: Acute (2) HTN (hypertension): Status: Chronic Qualifiers: Hypertension type: primary hypertension Qualified Code(s): I10 - Essential (primary) hypertension (3) Seizure disorder: Status: Chronic (4) Ileus: Status: Acute
--- NOTE | 2025-08-15 12:12 | RAD ---
EXAM: KUB HISTORY: ABD PAIN ; ANEMIA, ANGINA, ASTHMA, GERD, HTN, SEIZURES SX: CHOL,E HYST, TONSILS COMPARISON: 08/14/[address] dated 08/12/2025 TECHNIQUE: AP abdomen, supine FINDINGS: Slight decreased prominent air-filled small bowel loops in the mid abdomen. No gross free peritoneal air. No abnormal calcifications. Right upper quadrant metallic surgical clips. IMPRESSION: Slight decreased prominent air-filled small bowel loops in the mid abdomen. THIS IS AN ELECTRONICALLY VERIFIED FINAL REPORT 08/15/2025 12:08 PM - Electronically signed by Yaniv Francisco MD
[2025-08-15] MEDS: DRUG FILTER EXTENSION SET ONE (13:05)
[2025-08-16 05:53] LABS: MEAN PLATELET VOLUME 7.8 fL (7.4-11.0); RED CELL DISTRIBUTION WIDTH 14.3 % (11.6-16.5)
[2025-08-16 06:02] LABS: COR NA(FOR HYPERGLY) 137 mmol/L (136-145); CREATININE 0.80 mg/dL (0.55-1.02); eGFR NON BLACK RACES > 60 (>60)
[2025-08-16] MEDS ORDERED: CONSULT PHARMACY - POTASSIUM & MAGNESIUM XX SCH (07:00)
[2025-08-16] MEDS: NS 250 ML IV 250 ML IV ONE (07:20)
--- NOTE | 2025-08-16 07:57 | RAD ---
EXAM: KUB HISTORY: SIGMOID PERFORATION F/U ; ANGINA, ASTHMA, GERD, HTN, SEIZURES SX: [place]. HYST, TONSILS COMPARISON: AP abdomen, supine TECHNIQUE: KUB dated 08/15/2025; CT dated 08/08/2025 FINDINGS: Persistent mildly prominent gas-filled small bowel loops in the mid abdomen. Relative paucity of colonic bowel gas. Right upper quadrant metallic surgical clips. IMPRESSION: Stable mildly prominent gas-filled small bowel loops in the mid abdomen. THIS IS AN ELECTRONICALLY VERIFIED FINAL REPORT 08/16/2025 7:54 AM - Electronically signed by Yaniv Francisco MD
--- NOTE | 2025-08-16 11:00 | PCM.PROG ---
Progress Note Progress Note for Day of Date of Exam: 08/16/25 Subjective Subjective: Patient seen at bedside, no acute events overnight. She is feeling better today. She has been tolerating her diet. She reports diarrhea is improving. She remains on IV Zozyn. Labs/imaging reviewed: - WBC 7.1 hemoglobin 11.9 potassium 3.5 creatinine 0.80 Plan: Continue current care. Follow surgery recommendations. Diet advanced as per surgery. Continue hydration. Continue bronchodilators. Continue IV Zosyn. Ambulate as tolerated. Continue home medications as appropriate. Replace electrolytes as per protocol. Monitor AM labs/imaging. Medicine will sign off. CM working on discharge planning. Past Medical Family Social History Past Med/Fam/Surg Hx: No changes since H&P Allergies: Allergies No Known Drug Allergies Allergy (Verified 08/10/25 09:06) Review of Systems ROS: No change since H&P Vital Signs and I&O's Vital Signs: Vital Signs Temperature 97.7 F Temperature 97.7 F Pulse Rate 99 Pulse Rate 78 Pulse Rate 91 Respiratory Rate 18 Respiratory Rate 20 Blood Pressure 140/81 Blood Pressure 133/74 O2 Sat by Pulse Oximetry 94 O2 Sat by Pulse Oximetry 98 O2 Sat by Pulse Oximetry 94 Intake and Output: Intake & Output 08/13/25 08/14/25 08/15/25 08/16/25 23:59 23:59 23:59 23:59 Intake Total 1800 / 1800 2550 / 2550 1714 / 1714 500 / 500 Balance 1800 / 1800 2550 / 2550 1714 / 1714 500 / 500 Physical Exam Oriented: Normal Eyes: Normal Ear: Normal Nose: Normal Throat: Normal Respiratory: Diminished Cardiovascular: Normal Auscultation: Bowel Sounds: Decreased Tenderness: RLQ, LLQ, Mild and Other (Soft abdomen with diffuse tenderness more towards the left lower quadrant, no rebound tenderness.) Skin: Normal Musculoskeletal: Normal Psychiatric: Normal Mood Description: Calm Affect: Normal Speech Pattern: Clear and Appropriate Laboratory and Diagnostics 08/16/25 05:22 08/16/25 05:22 Labs: 08/09/25 16:48 Blood Blood Culture - Final 08/09/25 15:58 Blood Blood Culture - Final Laboratory WBC 7.1 X10^3/uL (3.6-10.0) 08/16/25 05:22 RBC 4.18 X10^6/uL (3.5-5.4) 08/16/25 05:22 Hgb 11.9 g/dL (12.0-16.0) L 08/16/25 05:22 Hct 34.8 % (36.0-47.0) L 08/16/25 05:22 MCV 83.2 fL (80.0-100.0) 08/16/25 05:22 MCH 28.4 pg (27.0-34.0) 08/16/25 05:22 MCHC 34.1 g/dL (33.0-35.0) 08/16/25 05:22 RDW 14.3 % (11.6-16.5) 08/16/25 05:22 Plt Count 272 X10^3/uL (150.0-450.0) 08/16/25 05:22 MPV 7.8 fL (7.4-11.0) 08/16/25 05:22 Neut % (Auto) 63.5 % (42.0-75.0) 08/16/25 05:22 Lymph % (Auto) 20.9 % (21.0-51.0) L 08/16/25 05:22 [place] % (Auto) 12.7 % (0.0-13.0) 08/16/25 05:22 Eos % (Auto) 2.5 % (0.9-2.9) 08/16/25 05:22 Baso % (Auto) 0.4 % (0.2-1.0) 08/16/25 05:22 Neut # (Auto) 4.5 x10^3/uL (2.2-4.8) 08/16/25 05:22 Lymph # (Auto) 1.5 X10^3/uL (1.3-2.9) 08/16/25 05:22 [place] # (Auto) 0.9 x10^3/uL (0.3-0.8) H 08/16/25 05:22 Eos # (Auto) 0.2 x10^3/uL (0.0-0.2) 08/16/25 05:22 Baso # (Auto) 0.0 X10^3/uL (0.0-0.1) 08/16/25 05:22 Absolute Nucleated RBC 0.0 /100WBC 08/16/25 05:22 PT 16.1 SECONDS (11.8-14.3) 08/09/25 09:28 INR Target Range - 08/09/25 09:28 INR 1.28 (0.8-1.3) 08/09/25 09:28 Sodium 137 mmol/L (136-145) 08/16/25 05:22 Corrected Sodium 137 mmol/L (136-145) 08/16/25 05:22 Potassium 3.5 mmol/L (3.5-5.1) 08/16/25 05:22 Chloride 99 mmol/L (98-107) 08/16/25 05:22 Carbon Dioxide 33.7 mmol/L (21-32) H 08/16/25 05:22 BUN 13 mg/dL (7-18) 08/16/25 05:22 Creatinine 0.80 mg/dL (0.55-1.02) 08/16/25 05:22 Est GFR (MDRD) Af Amer > 60 (>60) 08/16/25 05:22 Est GFR (MDRD) Non-Af > 60 (>60) 08/16/25 05:22 Glucose 115 mg/dL (65-99) H 08/16/25 05:22 POC Glucose (mg/dL) 118 mg/dL (65-99) H 08/16/25 05:17 Lactic Acid 1.6 mmol/L (0.4-2.0) 08/09/25 15:58 Calcium 8.9 mg/dL (8.5-10.1) 08/16/25 05:22 Corrected Calcium 9.5 mg/dL (8.5-10.1) 08/14/25 05:27 Phosphorus 2.6 mg/dL (2.6-4.7) 08/14/25 05:27 Magnesium 2.1 mg/dL (2.0-2.9) 08/16/25 05:22 Total Bilirubin 0.50 mg/dL (0.2-1.0) 08/14/25 05:27 AST 23 Units/L (15-37) 08/14/25 05:27 ALT 29 Units/L (12-78) 08/14/25 05:27 Alkaline Phosphatase 52 Units/L (46-116) 08/14/25 05:27 Total Protein 5.7 g/dL (6.4-8.2) L 08/14/25 05:27 Albumin 2.8 g/dL (3.4-5.0) L 08/14/25 05:27 Globulin 2.9 g/dL (2.5-4.5) 08/14/25 05:27 Albumin/Globulin Ratio 1.0 Ratio (1.1-2.1) L 08/14/25 05:27 Prealbumin 10.9 mg/dL (18-35.7) L 08/12/25 04:37 Triglycerides 107 mg/dL (0-150) 08/14/25 05:27 Amylase 39 Units/L (25-115) 08/08/25 19:33 Lipase 19 Units/L (16-77) 08/08/25 19:33 Specimen Type Catherized urine 08/09/25 09:35 Urine Color Dark yellow (YELLOW) 08/09/25 09:35 Urine Appearance Clear (CLEAR) 08/09/25 09:35 Urine pH 6.0 (5.0 - 8.0) 08/09/25 09:35 Ur Specific [place] 1.025 (1.000-1.030) 08/09/25 09:35 Urine Protein 2+ (NEGATIVE) 08/09/25 09:35 Urine Glucose (UA) Negative (NEGATIVE) 08/09/25 09:35 Urine Ketones 2+ (NEGATIVE) 08/09/25 09:35 Urine Blood 1+ (NEGATIVE) 08/09/25 09:35 Urine Nitrite Negative (NEGATIVE) 08/09/25 09:35 Urine Bilirubin Negative (NEGATIVE) 08/09/25 09:35 Urine Urobilinogen Normal (NORMAL) 08/09/25 09:35 Ur Leukocyte Esterase Negative (NEGATIVE) 08/09/25 09:35 Urine RBC None seen /HPF (0-3) 08/09/25 09:35 Urine WBC 0-2 /HPF (0-5) 08/09/25 09:35 Ur Squamous Epith Cells Rare /HPF (NEGATIVE) 08/09/25 09:35 Ur Renal Epithelial Cell Few /HPF (NEGATIVE) 08/09/25 09:35 Amorphous Sediment Trace /HPF (NEGATIVE) 08/09/25 09:35 Urine Bacteria Trace /HPF (NEGATIVE) 08/09/25 09:35 Urine Mucus Moderate /HPF (NEGATIVE) 08/09/25 09:35 Ur Culture Indicated? No/not indicated 08/09/25 09:35 Stl C. diff Tox B Gene Negative (NEGATIVE) 08/12/25 05:16 Stl C. diff [id number] Presumptive negative (NEGATIVE) 08/12/25 05:16 C. difficile Toxin A&B Negative (NEGATIVE) 08/08/25 23:25 SARS CoV-2 RNA Rapid ARABELLA Negative (NEGATIVE) 08/08/25 20:46 Plan (1) Perforation of sigmoid colon due to diverticulitis: Status: Acute (2) HTN (hypertension): Status: Chronic Qualifiers: Hypertension type: primary hypertension Qualified Code(s): I10 - Essential (primary) hypertension (3) Seizure disorder: Status: Chronic (4) Ileus: Status: Acute
[2025-08-16] MEDS: CLINIMIX 5 %/20 % 1,000 ML with MVI INJ (ADULT) 10 ML, TPN ELECTROLYTES 20 ML, TRACE EL... IV SCH (13:42)
--- NOTE | 2025-08-16 14:24 | DR.PROGNOT ---
HOSPITAL PROGRESS NOTE Progress Note for Day of: Progress Note Date: 08/16/25 Chief Complaint Chief Complaint: no changes,able to ambulate , having small BM . mild SOB . KUB showed persistant ileus . normal lytes and BUN,Creat . afebrile . soft abdomen with diffuse tenderness . BS+ Past Medical Family Social History Past Med/Fam/Surg Hx: No changes since H&P Allergies: Allergies No Known Drug Allergies Allergy (Verified 08/10/25 09:06) Review Of Systems ROS: No change since H&P Changes in ROS: see HPI Vital Signs Vital Signs: Vital Signs Temperature 98.8 F Temperature 97.7 F Pulse Rate 90 Pulse Rate 99 Respiratory Rate 17 Respiratory Rate 18 Blood Pressure 147/71 Blood Pressure 140/81 O2 Sat by Pulse Oximetry 93 O2 Sat by Pulse Oximetry 94 Physical Exam Oriented: Normal Eyes: Normal Ear: Normal Nose: Normal Throat: Normal Respiratory: Diminished Cardiovascular: Normal : Normal GI:Auscultation: Decreased GI:Palpation: Normal GI: Tenderness: RLQ, LLQ, Mild and Other (Soft abdomen with diffuse tenderness more towards the left lower quadrant, no rebound tenderness.) Skin: Normal Musculoskeletal: Normal Psychiatric: Normal Mood Description: Calm Affect: Normal Speech Pattern: Clear and Appropriate Laboratory and Diagnostics 08/16/25 05:22 08/16/25 05:22 Labs: 08/09/25 16:48 Blood Blood Culture - Final 08/09/25 15:58 Blood Blood Culture - Final Laboratory WBC 7.1 X10^3/uL (3.6-10.0) 08/16/25 05:22 RBC 4.18 X10^6/uL (3.5-5.4) 08/16/25 05:22 Hgb 11.9 g/dL (12.0-16.0) L 08/16/25 05:22 Hct 34.8 % (36.0-47.0) L 08/16/25 05:22 MCV 83.2 fL (80.0-100.0) 08/16/25 05:22 MCH 28.4 pg (27.0-34.0) 08/16/25 05:22 MCHC 34.1 g/dL (33.0-35.0) 08/16/25 05:22 RDW 14.3 % (11.6-16.5) 08/16/25 05:22 Plt Count 272 X10^3/uL (150.0-450.0) 08/16/25 05:22 MPV 7.8 fL (7.4-11.0) 08/16/25 05:22 Neut % (Auto) 63.5 % (42.0-75.0) 08/16/25 05:22 Lymph % (Auto) 20.9 % (21.0-51.0) L 08/16/25 05:22 [place] % (Auto) 12.7 % (0.0-13.0) 08/16/25 05:22 Eos % (Auto) 2.5 % (0.9-2.9) 08/16/25 05:22 Baso % (Auto) 0.4 % (0.2-1.0) 08/16/25 05:22 Neut # (Auto) 4.5 x10^3/uL (2.2-4.8) 08/16/25 05:22 Lymph # (Auto) 1.5 X10^3/uL (1.3-2.9) 08/16/25 05:22 [place] # (Auto) 0.9 x10^3/uL (0.3-0.8) H 08/16/25 05:22 Eos # (Auto) 0.2 x10^3/uL (0.0-0.2) 08/16/25 05:22 Baso # (Auto) 0.0 X10^3/uL (0.0-0.1) 08/16/25 05:22 Absolute Nucleated RBC 0.0 /100WBC 08/16/25 05:22 PT 16.1 SECONDS (11.8-14.3) 08/09/25 09:28 INR Target Range - 08/09/25 09:28 INR 1.28 (0.8-1.3) 08/09/25 09:28 Sodium 137 mmol/L (136-145) 08/16/25 05:22 Corrected Sodium 137 mmol/L (136-145) 08/16/25 05:22 Potassium 3.5 mmol/L (3.5-5.1) 08/16/25 05:22 Chloride 99 mmol/L (98-107) 08/16/25 05:22 Carbon Dioxide 33.7 mmol/L (21-32) H 08/16/25 05:22 BUN 13 mg/dL (7-18) 08/16/25 05:22 Creatinine 0.80 mg/dL (0.55-1.02) 08/16/25 05:22 Est GFR (MDRD) Af Amer > 60 (>60) 08/16/25 05:22 Est GFR (MDRD) Non-Af > 60 (>60) 08/16/25 05:22 Glucose 115 mg/dL (65-99) H 08/16/25 05:22 POC Glucose (mg/dL) 133 mg/dL (65-99) H 08/16/25 11:00 Lactic Acid 1.6 mmol/L (0.4-2.0) 08/09/25 15:58 Calcium 8.9 mg/dL (8.5-10.1) 08/16/25 05:22 Corrected Calcium 9.5 mg/dL (8.5-10.1) 08/14/25 05:27 Phosphorus 2.6 mg/dL (2.6-4.7) 08/14/25 05:27 Magnesium 2.1 mg/dL (2.0-2.9) 08/16/25 05:22 Total Bilirubin 0.50 mg/dL (0.2-1.0) 08/14/25 05:27 AST 23 Units/L (15-37) 08/14/25 05:27 ALT 29 Units/L (12-78) 08/14/25 05:27 Alkaline Phosphatase 52 Units/L (46-116) 08/14/25 05:27 Total Protein 5.7 g/dL (6.4-8.2) L 08/14/25 05:27 Albumin 2.8 g/dL (3.4-5.0) L 08/14/25 05:27 Globulin 2.9 g/dL (2.5-4.5) 08/14/25 05:27 Albumin/Globulin Ratio 1.0 Ratio (1.1-2.1) L 08/14/25 05:27 Prealbumin 10.9 mg/dL (18-35.7) L 08/12/25 04:37 Triglycerides 107 mg/dL (0-150) 08/14/25 05:27 Amylase 39 Units/L (25-115) 08/08/25 19:33 Lipase 19 Units/L (16-77) 08/08/25 19:33 Specimen Type Catherized urine 08/09/25 09:35 Urine Color Dark yellow (YELLOW) 08/09/25 09:35 Urine Appearance Clear (CLEAR) 08/09/25 09:35 Urine pH 6.0 (5.0 - 8.0) 08/09/25 09:35 Ur Specific [place] 1.025 (1.000-1.030) 08/09/25 09:35 Urine Protein 2+ (NEGATIVE) 08/09/25 09:35 Urine Glucose (UA) Negative (NEGATIVE) 08/09/25 09:35 Urine Ketones 2+ (NEGATIVE) 08/09/25 09:35 Urine Blood 1+ (NEGATIVE) 08/09/25 09:35 Urine Nitrite Negative (NEGATIVE) 08/09/25 09:35 Urine Bilirubin Negative (NEGATIVE) 08/09/25 09:35 Urine Urobilinogen Normal (NORMAL) 08/09/25 09:35 Ur Leukocyte Esterase Negative (NEGATIVE) 08/09/25 09:35 Urine RBC None seen /HPF (0-3) 08/09/25 09:35 Urine WBC 0-2 /HPF (0-5) 08/09/25 09:35 Ur Squamous Epith Cells Rare /HPF (NEGATIVE) 08/09/25 09:35 Ur Renal Epithelial Cell Few /HPF (NEGATIVE) 08/09/25 09:35 Amorphous Sediment Trace /HPF (NEGATIVE) 08/09/25 09:35 Urine Bacteria Trace /HPF (NEGATIVE) 08/09/25 09:35 Urine Mucus Moderate /HPF (NEGATIVE) 08/09/25 09:35 Ur Culture Indicated? No/not indicated 08/09/25 09:35 Stl C. diff Tox B Gene Negative (NEGATIVE) 08/12/25 05:16 Stl C. diff [id number] Presumptive negative (NEGATIVE) 08/12/25 05:16 C. difficile Toxin A&B Negative (NEGATIVE) 08/08/25 23:25 SARS CoV-2 RNA Rapid ARABELLA Negative (NEGATIVE) 08/08/25 20:46 Assessment and Plan 1: Acute diverticulitis with sealed perforation. to arrange for home IV ATB and D/C in am on low residual diet . F/U in 2 weeks .. Problem Patient Problems: Patient Problems C. difficile colitis (Acute) A04.72 Perforation of sigmoid colon due to diverticulitis (Acute) K57.20
[2025-08-16] MEDS: BENTYL CAP 10 MG PO PRN (15:09)
[2025-08-17 05:46] LABS: MEAN PLATELET VOLUME 7.6 fL (7.4-11.0); RED CELL DISTRIBUTION WIDTH 14.4 % (11.6-16.5)
[2025-08-17 05:58] LABS: COR NA(FOR HYPERGLY) 138 mmol/L (136-145); CREATININE 0.77 mg/dL (0.55-1.02); PHOSPHORUS 4.1 mg/dL (2.6-4.7); eGFR NON BLACK RACES > 60 (>60)
[2025-08-17 06:03] VITALS: O2SAT 92
[2025-08-17] MEDS ORDERED: CONSULT PHARMACY - POTASSIUM & MAGNESIUM XX SCH (07:00)
[2025-08-17 07:49] VITALS: BP 109/57; PULSE 97; RESP 20; TEMP 98.8
[2025-08-17] MEDS: K-DUR TAB 20 MEQ PO SCH (08:34)
[2025-08-17] MEDS: MAG-OX TAB PO SCH (08:34)
[2025-08-17] MEDS ORDERED: VITAMIN D (1.25MG) PO SCH (09:00)
[2025-08-17] MEDS: VANCOMYCIN IV *PREMIX 1 G/200 ML BAG 1 G/200 ML PIGGYBACK IV ONE (09:27)
== END 2025-08-17 11:25 | disposition home health service (06) | DRG 392 ==
LOC: ER 19:05 → ICU 08-09 05:28 → MED/SURG 08-13 16:24
PROVIDERS: ADMIT Surgery; ATTEND Surgery
DX: E83.42 Hypomagnesemia; E11.65 Type 2 diabetes mellitus with hyperglycemia; R26.89 Other abnormalities of gait and mobility; K21.9 Gastro-esophageal reflux disease without esophagitis; Z03.818 Encounter for observation for suspected exposure to other biological agents ruled out; R11.2 Nausea with vomiting, unspecified; Z79.899 Other long term (current) drug therapy; R00.0 Tachycardia, unspecified; K57.20 Diverticulitis of large intestine with perforation and abscess without bleeding; R06.02 Shortness of breath; J45.998 Other asthma; R10.84 Generalized abdominal pain; R94.31 Abnormal electrocardiogram [ECG] [EKG]; Z01.810 Encounter for preprocedural cardiovascular examination; J98.11 Atelectasis; I10 Essential (primary) hypertension; E83.51 Hypocalcemia; A04.72 Enterocolitis due to Clostridium difficile, not specified as recurrent; K56.7 Ileus, unspecified; D64.89 Other specified anemias; E78.5 Hyperlipidemia, unspecified; D72.828 Other elevated white blood cell count; E87.6 Hypokalemia; E03.8 Other specified hypothyroidism